=== PATIENT | female | born 1945 | race Caucasian/White ===

== ENCOUNTER → 2019-02-15 17:55 | Outpatient (CLI) | payer MEDICARE, BC, SELFPAY | PROVIDERS: Visit Provider Physician Assistant | DX: L97.911 Non-pressure chronic ulcer of unspecified part of right lower leg limited to breakdown of skin (principal) | CPT/HCPCS: 87070; 87205 ==

== ENCOUNTER → 2019-02-21 13:34 | Outpatient (CLI) | payer MEDICARE, BC, SELFPAY | PROVIDERS: Visit Provider Family Medicine | DX: I87.331 Chronic venous hypertension (idiopathic) with ulcer and inflammation of right lower extremity (principal); L97.811 Non-pressure chronic ulcer of other part of right lower leg limited to breakdown of skin; I89.0 Lymphedema, not elsewhere classified; L03.115 Cellulitis of right lower limb | CPT/HCPCS: 87070; 87075; 87077; 87186; 87205; 97597; 97598; 99203; 99214 ==

== ENCOUNTER 2019-02-23 04:50 | Emergency (ER) | payer MEDICARE, BC, SELFPAY ==
[2019-02-23 05:00] VITALS: BP 145/68; PULSE 87; RESP 20; TEMP 36.9; O2SAT 99
--- NOTE | 2019-02-23 05:18 | ED_ITS ---
HPI - Extremity Problem General Chief complaint: Extremity Problem,Nontraumatic Stated complaint: PAIN IN RIGHT LEG Time Seen by Provider: 02/23/19 05:10 Source: patient Mode of arrival: ambulatory Limitations: no limitations History of Present Illness HPI Narrative: The patient reports this morning due to ongoing right leg pain. She was sitting in the hospital 2 weeks ago with her very ill , when she developed discomfort in the right leg. She has lymphedema, she has a history of lower extremity vascular surgeries. She formed an ulcer on right lower extremity. She [facility]. She was initially seen at a walk-in clinic and started on Keflex.There was erythema spreading, at the [facility] her antibiotic was changed to Augmentin. The 1st culture showed no specific growth. A 2nd culture showed Gram-positive cocci, 2 separate strains. No definitive culture as yet been read. Related Data Home Medications Medication Instructions Recorded Confirmed clonidine HCl PO 02/15/19 02/15/19 ruqigedyqegy-Hh-qfvw-minerals PO 02/15/19 02/15/19 tamoxifen PO 02/15/19 02/15/19 Previous Rx's Medication Instructions Recorded tramadol 50 mg PO Q6H PRN #14 tab 02/23/19 Allergies Allergy/AdvReac Type Severity Reaction Status Date / Time Opioids - Morphine Analogues Allergy Severe makes very Verified 02/15/19 17:37 sick for several days. Review of Systems Review of Systems ROS Unobtainable: All systems reviewed & are unremarkable except as noted in HPI and below Constitutional Denies chills, Denies fever(s), Denies lethargy and Denies weakness Cardiovascular Denies chest pain, Denies irregular heart rhythm, Denies lightheadedness, Denies palpitations, Denies dyspnea, Denies dyspnea on exertion and Denies orthopnea Respiratory Denies cough, Denies dyspnea, Denies dyspnea on exertion and Denies wheezing Gastrointestinal Gastrointestinal: Denies abdominal pain, Denies change in bowel habits, Denies diarrhea, Denies nausea and Denies vomiting Musculoskeletal Denies back pain, Denies muscle weakness, Denies numbness and Denies tingling Comments: Right leg ulcer, right leg pain. Integumentary/Breasts Denies rash Comments: Right leg ulcer Neurologic Denies numbness, Denies tingling and Denies weakness Endocrine Denies palpitations Allergic/Immunologic Denies wheezing ON LICENSE OF [facility] Medical History (Updated 02/23/19 @ 05:25 by Bruce Soto MD) Breast cancer (Acute) Hypertension (Acute) Lymphedema (Acute) Ulcer of right lower extremity, limited to breakdown of skin (Acute) Social History Smoking Status: Never smoker Social History Smoking Status: Never smoker Exam Initial Vital Signs Initial Vital Signs: Vital Signs Temperature 98.4 F 02/23/19 05:00 Pulse Rate 87 02/23/19 05:00 Respiratory Rate 20 02/23/19 05:00 Blood Pressure 145/68 H 02/23/19 05:00 Pulse Oximetry 99 02/23/19 05:00 Const General: cooperative and well developed Nutritional Appearance: well nourished Orientation: alert, awake, oriented x3 and not confused Chest Chest: normal inspection of the chest Resp Effort & Inspection: normal respiratory effort and able to speak in complete sentences Auscultation: clear to auscultation bilaterally, no rales, no rhonchi and no wheezes Cardio Rate: regular rate Rhythm: regular rhythm Heart Sounds: S1 normal, S2 normal, no click, no gallops, no murmurs and no rubs Pulses: normal peripheral pulses GI Inspection: non-distended Palpation: soft, no hepatosplenomegaly, No guarding, No pulsatile mass and No tender Auscultation: normal bowel sounds Skin Other: Open superficial ulcer on the right anterior and lateral distal leg. Erythema extending from the top of foot, to just below the knee. The boundary erythema has increased since seen in the [facility], they erythema line was marked at that time. There is. The discharge from the wound site. There is no evidence of abscess. Neuro General: alert, oriented x3, gait normal and no focal motor deficits Speech: speech normal Extrem General: full ROM, no clubbing, cyanosis or edema, no pedal edema and no calf tenderness Other: Significant for a ulcer to the right lower extremity. There is adjacent erythema radiating to the knee, there is theme has spread since last seen clinically. She has had significant tenderness in the right leg. Both lower extremities are neurovascular intact with normal dorsalis pedis pulses. There is no evidence of abscess formation. Course Orders Ordered: ED Orders 02/23/19 05:00 Complete Blood Count AUTO DIFF Stat 02/23/19 06:20 Basic Metabolic Panel Stat Lactate (Lactic Acid) Stat Discontinued Medications Hydromorphone HCl (Dilaudid) 0.5 mg IV NOW ONE Stop: 02/23/19 05:14 Last Admin: 02/23/19 05:45 Dose: 0.5 mg Vancomycin HCl/Dextrose (Vancomycin) 1,500 mg in 300 mls @ 200 mls/hr IV NOW ONE Stop: 02/23/19 06:42 Last Admin: 02/23/19 05:54 Dose: 200 mls/hr Vital Signs - 8 hr 02/23/19 05:00 02/23/19 06:04 Temperature 98.4 F Pulse Rate 87 76 Respiratory Rate 20 16 Blood Pressure 145/68 H Blood Pressure [Right Arm] 128/57 L Pulse Oximetry 99 100 MDM - Extremity (Nontraumatic) Lab Data Result diagrams: 02/23/19 05:00 02/23/19 06:20 Lab Results 02/23/19 02/23/19 02/23/19 Range/Units 05:00 06:20 06:20 WBC 7.0 (4.5-11.0) X10^3/uL RBC 3.59 L (4.0-5.2) X10^6/uL Hgb 11.2 L (12.0-16.0) g/dL Hct 32.6 L (36-46) % MCV 90.9 (80-100) fL MCH 31.3 (26-34) PG MCHC 34.5 (30-36) % RDW 14.4 (11.6-14.8) % Plt Count 137 L (150-400) X10^3/uL Neut % (Auto) 69.7 (50-75) % Lymph % (Auto) 18.2 L (25-40) % [place] % (Auto) 9.2 (3-14) % Eos % (Auto) 2.4 (2-4) % Baso % (Auto) 0.5 (0-2) % Neut # (Auto) 4900 (4142-4043) /uL Lymph # (Auto) 1300 (7686-0003) /uL [place] # (Auto) 600 (0-900) /uL Eos # (Auto) 200 (0-450) /uL Baso # (Auto) 0 (0-100) /uL Sodium 139 (137-145) mmol/L Potassium 3.8 (3.4-5.1) mmol/L Chloride 108 H (98-107) mmol/L Carbon Dioxide 26 (22-32) mmol/L BUN 15 (7-17) mg/dL Creatinine 0.70 (0.52-1.04) mg/dL Estimated GFR > 60.0 (>60) mL/min BUN/Creatinine Ratio 21.4 (6-22) Glucose 105 (80-110) mg/dL Lactate 0.8 (0.7-2.1) mmol/L Calcium 8.9 (8.4-10.2) mg/dL Discharge Plan Departure Patient Disposition: Home Clinical Impression: Cellulitis of leg, right Skin ulcer of right lower leg Qualifiers: Non-pressure ulcer stage: limited to breakdown of skin Qualified Code(s): L97.911 - Non-pressure chronic ulcer of unspecified part of right lower leg limited to breakdown of skin Instructions: DI for Cellulitis -- Adult Activity Restrictions/Additional Instructions: Return later today about 5:00 p.m. for a 2nd dose of IV antibiotics. The next ER doctor will re-evaluate her wound, and determine if you need additional care here after this evening. Continue taking Augmentin as previously prescribed. I will prescribe Tramadol every 6 hours as needed for pain. Also follow up at the [facility] as scheduled. Prescriptions: New tramadol 50 mg tablet 50 mg PO Q6H PRN (Reason: pain) Qty: 14 RF: 0 No Action clonidine HCl PO RF: 0 oprheorqcbum-Ol-weqh-minerals PO RF: 0 tamoxifen PO RF: 0
[2019-02-23 05:40] LABS: Add Manual Diff / Slide Review NO; Basophils Absolute Auto 0 /uL (0-100); Basophils Percent Auto 0.5 % (0-2); Eosinophils Absolute Auto 200 /uL (0-450); Eosinophils Percent Auto 2.4 % (2-4); Hematocrit 32.6 % (36-46); Hemoglobin 11.2 g/dL (12.0-16.0); Lymphocytes Absolute Auto 1300 /uL (1100-4500); Lymphocytes Percent Auto 18.2 % (25-40); Mean Corpuscular HGB Conc 34.5 % (30-36); Mean Corpuscular Hemoglobin 31.3 PG (26-34); Mean Corpuscular Volume 90.9 fL (80-100); Monocytes Absolute Auto 600 /uL (0-900); Monocytes Percent Auto 9.2 % (3-14); Neutrophils Absolute Auto 4900 /uL (1500-7000); Neutrophils Percent Auto 69.7 % (50-75); Platelet Count 137 X10^3/uL (150-400); Red Blood Cell Count 3.59 X10^6/uL (4.0-5.2); Red Cell Distribution Width 14.4 % (11.6-14.8)
[2019-02-23] MEDS: HYDROMORPHONE 1 MG INJ 0.5 MG IV (05:45)
--- NOTE | 2019-02-23 05:50 | PC.NURSE ---
She came eith dressing on right leg,Rosi removed it,she has an area of redness and excoriation on lower right leg,dersssing replaced with her own super absorbent dressing supplied by wound wound care which she is receiving and then tracy brooks.She said the new dressing eased her leg pain a lot.
[2019-02-23] MEDS: VANCOMYCIN 1,500 MG/300 ML FROZ.PIGGY 200 MG IV (05:54)
[2019-02-23 06:04] VITALS: BP 128/57; PULSE 76; RESP 16; O2SAT 100
[2019-02-23 06:36] LABS: BUN Creatinine Ratio 21.4 (6-22); Blood Urea Nitrogen 15 mg/dL (7-17); Calcium 8.9 mg/dL (8.4-10.2); Carbon Dioxide 26 mmol/L (22-32); Chloride 108 mmol/L (98-107); Estimated Glomerular Filt Rate > 60.0 mL/min (>60); Glucose 105 mg/dL (80-110); HEMOLYSIS < 15 (0-50); Lactate (Lactic Acid) 0.8 mmol/L (0.7-2.1); Potassium 3.8 mmol/L (3.4-5.1); Sodium 139 mmol/L (137-145)
[2019-02-23 08:00] VITALS: BP 135/59; PULSE 72; RESP 18; O2SAT 100
[2019-02-23 08:36] VITALS: TEMP 37.2
--- NOTE | 2019-02-23 18:51 | PC.NURSE ---
Pt called stating she feels nauseas and is waiting for her daughter to bring her to ED. Encouraged to call 911 if she has any increased symptoms to return sooner.
== END 2019-02-23 08:37 | disposition home or self-care (01) ==
PROVIDERS: Emergency Provider Emergency Medicine
DX: L03.115 Cellulitis of right lower limb (principal)
CPT/HCPCS: 36415; 36591; 80048; 83605; 85025; 87070; 87077; 87186; 87205; 99283; J1170

== ENCOUNTER 2019-02-23 21:35 | Emergency (ER) | payer MEDICARE, BC, SELFPAY ==
[2019-02-23 21:52] VITALS: BP 132/74; PULSE 74; RESP 18; TEMP 36.6; O2SAT 98; BMI 29.0
[2019-02-23 23:01] VITALS: BP 118/47; PULSE 64; O2SAT 99
[2019-02-23] MEDS: VANCOMYCIN 1,000 MG/200 ML FROZ.PIGGY 200 MG IV (23:16)
[2019-02-24 00:31] VITALS: BP 124/45; PULSE 72; RESP 17; O2SAT 100
--- NOTE | 2019-02-24 01:00 | ED_ITS ---
HPI - Recheck/Abnormal Lab/Rx General Chief Complaint: Recheck/Abnormal Lab/Rx Stated Complaint: RETURNING FOR ANTIBIOTIC IV Time Seen by Provider: 02/23/19 22:35 Source: patient Mode of arrival: ambulatory Limitations: no limitations History of Present Illness HPI narrative: 73F nonsmoker with HTN presents with repeat visit for evaluation of RLE swelling, redness and early cellulitis. Patient was here last night and given Vancomycin and encouraged to come back for evaluation. She is currently under the care of Wound Care and had doxycycline called in today, but was told to come here for evaluation instead. She denies systemic symptoms such as fever, chills, N/V. She feels great and states it looks better as well. MD complaint: wound re-check Initial visit (ago): hour(s) Initial visit for: cellulitis Returns today for: cellulitis follow-up Symptoms since prior visit: no new symptoms Context: planned re-check Associated symptoms: none Treatments prior to arrival: given antibiotics on Related Data Home Medications Medication Instructions Recorded Confirmed clonidine HCl PO 02/15/19 02/15/19 moefqsehjluf-En-ujoi-minerals PO 02/15/19 02/15/19 tamoxifen PO 02/15/19 02/15/19 Previous Rx's Medication Instructions Recorded tramadol 50 mg PO Q6H PRN #14 tab 02/23/19 Allergies Allergy/AdvReac Type Severity Reaction Status Date / Time Opioids - Morphine Analogues Allergy Severe makes very Verified 02/15/19 17:37 sick for several days. Review of Systems Constitutional Denies chills, Denies fever(s), Denies lethargy and Denies weakness Eyes Denies change in vision, Denies eye discharge, Denies irritation and Denies loss of vision ENT Ears, Nose, Mouth, and Throat: Denies change in voice, Denies neck pain and Denies sore throat Cardiovascular Denies chest pain, Denies irregular heart rhythm, Denies lightheadedness, Denies palpitations, Denies dyspnea, Denies dyspnea on exertion and Denies orthopnea Respiratory Denies cough, Denies dyspnea, Denies dyspnea on exertion and Denies wheezing Gastrointestinal Gastrointestinal: Denies abdominal pain, Denies change in bowel habits, Denies diarrhea, Denies nausea and Denies vomiting Genitourinary Denies hematuria, Denies flank pain, Denies urinary incontinence and Denies urinary urgency Musculoskeletal Denies neck pain Integumentary/Breasts Denies pruritus, Reports erythema, Denies rash and Denies wounds Neurologic Denies confusion, Denies loss of vision and Denies weakness Psychiatric Denies anxiety, Denies confusion, Denies depression, Denies homicidal ideation and Denies suicidal ideation Endocrine Denies palpitations Hematologic/Lymphatic Denies easy bruising Allergic/Immunologic Denies wheezing PFSH Medical History Breast cancer (Acute) Hypertension (Acute) Lymphedema (Acute) Ulcer of right lower extremity, limited to breakdown of skin (Acute) Social History Smoking Status: Never smoker Social History Smoking Status: Never smoker Exam Narrative Exam Narrative: GEN: AOx3 and in mild distress EYES: Pupils are equal, round, and reactive to light and accommodation. Ex traoccular muscles are intact bilaterally. There is no subconjunctival hemorrhage or exudate. CHEST: Lungs are clear to auscultation bilaterally and free of wheezes, rales, or rhonchi. Heart rate is regular rhythm, there are no murmurs, clicks, rubs, or gallops. There is no chest wall tenderness. ABD: Abdomen is soft and nontender. There is no guarding or rebound. Bowel sounds are normal in all 4 quadrants. There is no mass or organomegaly. EXT: Full painless ROM of all extremities with no loss of sensation or strength. SKIN: Right lower extremity addendum this, consistent with chronic lymphedema with erythema of anterior vega, within the markings from wound care Initial Vital Signs Initial Vital Signs: Vital Signs Temperature 98 F 02/23/19 21:52 Pulse Rate 74 02/23/19 21:52 Respiratory Rate 18 02/23/19 21:52 Blood Pressure 132/74 02/23/19 21:52 Pulse Oximetry 98 02/23/19 21:52 Course Orders Ordered: Discontinued Medications Vancomycin HCl/Dextrose (Vancomycin) 1,000 mg in 200 mls @ 200 mls/hr IV NOW ONE Stop: 02/24/19 00:07 Last Infusion: 02/24/19 00:07 Dose: 0 mls/hr Admin: 02/23/19 23:16 Dose: 200 mls/hr Reevaluation(s) Reevaluation #1: cultures consulted. Multi organism susceptible to doxy/vanco Vital Signs - 8 hr 02/23/19 21:52 02/23/19 23:01 02/24/19 00:31 Temperature 98 F Pulse Rate 74 64 72 Respiratory Rate 18 17 Blood Pressure 132/74 Blood Pressure [Left Arm] 118/47 L 124/45 L Pulse Oximetry 98 99 100 Discharge Plan Departure Patient Disposition: Home Clinical Impression: Cellulitis of leg, right Interventions: ED Discharge Assessment Last Done: 02/24/19 00:51 Instructions: DI for Cellulitis -- Adult Activity Restrictions/Additional Instructions: *You have been diagnosed with [right lower extremity cellulitis] *What to do: *Take medications as directed: Begin taking doxycycline as requested by wound care *Follow up with your primary care provider in 2-3 days, call for an appointment. Let them know you were seen in the Emergency Department and that we ask that you be seen in follow up *Return to ER if you should have any new, worsening or concerning symptoms Prescriptions: No Action clonidine HCl PO RF: 0 dvalngzdtrvd-Ki-gvhs-minerals PO RF: 0 tamoxifen PO RF: 0 tramadol 50 mg tablet 50 mg PO Q6H PRN (Reason: pain) Qty: 14 RF: 0
== END 2019-02-24 00:59 | disposition home or self-care (01) ==
PROVIDERS: Emergency Provider Emergency Medicine
DX: L03.115 Cellulitis of right lower limb (principal); L97.911 Non-pressure chronic ulcer of unspecified part of right lower leg limited to breakdown of skin
CPT/HCPCS: 36415; 36591; 80048; 83605; 85025; 87070; 87077; 87186; 87205; 96365; 96366; 96375; 99283; 99284; J1170; J3370

== ENCOUNTER → 2019-02-27 14:39 | Outpatient (CLI) | payer MEDICARE, BC, SELFPAY | PROVIDERS: Visit Provider Family Medicine | DX: I87.311 Chronic venous hypertension (idiopathic) with ulcer of right lower extremity (principal); L97.811 Non-pressure chronic ulcer of other part of right lower leg limited to breakdown of skin; L03.115 Cellulitis of right lower limb; B95.7 Other staphylococcus as the cause of diseases classified elsewhere | CPT/HCPCS: 93922; 99214 ==

== ENCOUNTER → 2019-03-02 11:13 | Outpatient (CLI) | payer MEDICARE, BC, SELFPAY | PROVIDERS: Visit Provider Family Medicine | DX: I87.311 Chronic venous hypertension (idiopathic) with ulcer of right lower extremity (principal); L97.811 Non-pressure chronic ulcer of other part of right lower leg limited to breakdown of skin; I89.0 Lymphedema, not elsewhere classified; L03.115 Cellulitis of right lower limb; B95.7 Other staphylococcus as the cause of diseases classified elsewhere | CPT/HCPCS: 99212; 99213 ==

== ENCOUNTER → 2019-03-05 15:04 | Outpatient (CLI) | payer MEDICARE, BC, SELFPAY | PROVIDERS: Visit Provider Family Medicine | DX: I87.2 Venous insufficiency (chronic) (peripheral) (principal); L97.812 Non-pressure chronic ulcer of other part of right lower leg with fat layer exposed; M79.661 Pain in right lower leg | CPT/HCPCS: 29581 ==

== ENCOUNTER → 2019-03-07 13:42 | Outpatient (CLI) | payer MEDICARE, BC, SELFPAY | PROVIDERS: Visit Provider Family Medicine | DX: I87.331 Chronic venous hypertension (idiopathic) with ulcer and inflammation of right lower extremity (principal); L97.811 Non-pressure chronic ulcer of other part of right lower leg limited to breakdown of skin; I89.0 Lymphedema, not elsewhere classified; L03.115 Cellulitis of right lower limb; B95.7 Other staphylococcus as the cause of diseases classified elsewhere; I73.9 Peripheral vascular disease, unspecified | CPT/HCPCS: 99213; 99214 ==

== ENCOUNTER 2019-03-07 14:38 | Inpatient (IN) | payer MEDICARE, BC, SELFPAY ==
[2019-03-07 14:40] VITALS: BP 165/73; PULSE 79; RESP 18; TEMP 37.1; O2SAT 97
--- NOTE | 2019-03-07 15:41 | ED.EXTPRO ---
HPI - Extremity Problem General Chief complaint: Extremity Problem,Nontraumatic Stated complaint: infection of right leg Time Seen by Provider: 03/07/19 15:15 Source: patient and family Mode of arrival: ambulatory Limitations: no limitations History of Present Illness HPI Narrative: Patient comes to the emergency department complaining of redness of her right lower leg that is increasing. Patient has had an open wound on her anterior tibial area for about the last month, and developed a cellulitis in conjunction with this. Patient has been followed in [facility], and the wound was cultured. Patient was started on Augmentin, but the sensitivities found the bacteria to be resistant to this, so patient was switched to doxycycline, which she just finished yesterday. Patient states that the redness has still been progressing. She went and saw her physician at wound care, and was sent over here for further evaluation. Patient's has very recently been ill, and just within the last week. She states that she has not been able to take time to elevate her leg, and that it is more swollen than usual. Patient denies fevers. No lightheadedness. No nausea or vomiting. No chills or shakes. No other complaints at this time. Patient has chronic lymphedema from an open hysterectomy years ago with subsequent adhesions, she has been told. Related Data Home Medications Medication Instructions Recorded Confirmed clonidine HCl PO 02/15/19 02/15/19 gawewkfcymgy-Ho-jpvd-minerals PO 02/15/19 02/15/19 tamoxifen PO 02/15/19 02/15/19 Previous Rx's Medication Instructions Recorded tramadol 50 mg PO Q6H PRN #14 tab 02/23/19 Allergies Allergy/AdvReac Type Severity Reaction Status Date / Time Opioids - Morphine Analogues Allergy Severe makes very Verified 02/15/19 17:37 sick for several days. Review of Systems Constitutional Denies chills, Denies fever(s), Denies lethargy and Denies weakness Eyes Denies change in vision, Denies eye discharge, Denies irritation and Denies loss of vision ENT Ears, Nose, Mouth, and Throat: Denies change in voice, Denies neck pain and Denies sore throat Cardiovascular Denies chest pain, Denies irregular heart rhythm, Denies lightheadedness, Denies palpitations, Denies dyspnea, Denies dyspnea on exertion and Denies orthopnea Respiratory Denies cough, Denies dyspnea, Denies dyspnea on exertion and Denies wheezing Gastrointestinal Gastrointestinal: Denies abdominal pain, Denies change in bowel habits, Denies diarrhea, Denies nausea and Denies vomiting Genitourinary Denies hematuria, Denies flank pain, Denies urinary incontinence and Denies urinary urgency Musculoskeletal Denies neck pain Comments: Patient has marked lower extremity edema on the right, extending to her thigh. Integumentary/Breasts Denies pruritus, Reports erythema, Denies rash and Reports wounds Comments: Patient has an approximately 8 x 10 cm partial thickness wound to her anterior tibial area which appears to have good vascularization and healthy granulation tissue. Patient's entire lower leg is erythematous to varying degrees, with the greatest intensity of erythema around the wound itself. Erythema extends to the patient's knee area. No drainage is noted from the wound. No induration, fluctuance, or crepitus. Neurologic Denies confusion, Denies loss of vision and Denies weakness Psychiatric Denies anxiety, Denies confusion, Denies depression, Denies homicidal ideation and Denies suicidal ideation Endocrine Denies palpitations Hematologic/Lymphatic Denies easy bruising Allergic/Immunologic Denies wheezing [facility] Medical History Breast cancer (Acute) Hypertension (Acute) Lymphedema (Acute) Ulcer of right lower extremity, limited to breakdown of skin (Acute) Social History household members: none Smoking Status: Never smoker alcohol intake: never Social History household members: none Smoking Status: Never smoker alcohol intake: never Exam Initial Vital Signs Initial Vital Signs: Vital Signs Temperature 98.8 F 03/07/19 14:40 Pulse Rate 79 03/07/19 14:40 Respiratory Rate 18 03/07/19 14:40 Blood Pressure 165/73 H 03/07/19 14:40 Pulse Oximetry 97 03/07/19 14:40 Const General: cooperative and well developed Nutritional Appearance: well nourished Orientation: alert, awake, oriented x3 and not confused [facility] Head: normocephalic and atraumatic Ears: external ears normal Nose: external nose normal and No nasal discharge Face and sinus: face symmetric and No dry mucous membranes Mouth: oral mucosae normal and moist mucous membranes Teeth and gingiva: dentition normal Eyes General: appearance normal, both eyes and all related structures Eyelids: eyelids normal Conjunctivae: conjunctivae normal Sclera: sclerae normal Pupils: PERRL EOM: EOM intact bilaterally Neck Neck: normal visual inspection, trachea midline, No lymphadenopathy, No midline deformity and No JVD Lymphatic: No lymphedema Chest Chest: normal inspection of the chest Resp Effort & Inspection: normal respiratory effort, able to speak in complete sentences, no respiratory distress and no use of accessory muscles Auscultation: clear to auscultation bilaterally, no rales, no rhonchi and no wheezes Cardio Rate: regular rate Rhythm: regular rhythm Heart Sounds: no click, no gallops, no murmurs and no rubs Pulses: normal peripheral pulses GI Inspection: non-distended Palpation: soft, no hepatosplenomegaly, No guarding, No pulsatile mass and No tender Auscultation: normal bowel sounds Back/Spine/Pelvis Back: No CVA tenderness Cervical Spine: cervical ROM normal and No pain with cervical ROM Thoracic/Lumbar Spine: thoracic and lumbar spine normal to inspection Skin General: no rashes or lesions noted, No jaundice and No petechiae Other: Patient is an 8 x 10 cm partial-thickness wound which appears chronic. Good granulation tissue is noted in the floor of the wound. Erythema is noted to be most intense around the wound, but spreads up as far as the patient's knee and down to her ankle. No induration, fluctuance, or drainage is noted. Neuro General: alert, oriented x3, gait normal and no focal motor deficits Speech: speech normal Extrem General: full ROM and no calf tenderness Right lower extremity: edema (Marked) Details: non-pitting Psych Appearance: well kempt Mental Status: mental status grossly normal Attitude: cooperative Thought Content: normal and suicidality Judgment: judgment good Course Course Narrative: Patient was worked up with labs, and given a dose of vancomycin in the emergency department. The patient admittedly had not been doing a very good job of keeping her leg elevated, and I suspected that is why even antibiotics to which the bacteria were susceptible were not effective in eradicating the cellulitis. I have explained to the patient and her daughter that it is very important that she keep the leg elevated. We will admit her overnight in the hospital for serial doses of IV antibiotics, but I have advised the patient that she will be discharged home after this and she will need to make it a prior day to keep her leg elevated, to allow better circulation and to destress the tissues which are infected. Patient expresses understanding. I have spoken with Dr. Wilson, who agrees to admit the patient to her service. Orders Ordered: ED Orders 03/07/19 15:38 Blood Culture Stat 03/07/19 17:46 XR chest for PICC 1V Urgent 03/07/19 18:41 Complete Blood Count AUTO DIFF Stat Comprehensive Metabolic Panel Stat Discontinued Medications Vancomycin HCl (Vancomycin) 200 mls @ 200 mls/hr IV NOW ONE Stop: 03/07/19 16:39 Last Admin: 03/07/19 19:41 Dose: 200 mls/hr Vital Signs - 8 hr 03/07/19 14:40 03/07/19 19:36 Temperature 98.8 F 97.1 F L Pulse Rate 79 69 Respiratory Rate 18 16 Blood Pressure 165/73 H 146/79 H Pulse Oximetry 97 MDM - Extremity (Nontraumatic) Medical Records Attestation: I reviewed the patient's medical records. Lab Data Attestation: I reviewed the patient's lab results. Result diagrams: 03/07/19 18:41 03/07/19 18:41 Lab Results 03/07/19 03/07/19 Range/Units 18:41 18:41 WBC 5.7 (4.5-11.0) X10^3/uL RBC 3.38 L (4.0-5.2) X10^6/uL Hgb 10.6 L (12.0-16.0) g/dL Hct 30.2 L (36-46) % MCV 89.6 (80-100) fL MCH 31.5 (26-34) PG MCHC 35.2 (30-36) % RDW 14.6 (11.6-14.8) % Plt Count 115 L (150-400) X10^3/uL Neut % (Auto) 58.8 (50-75) % Lymph % (Auto) 30.9 (25-40) % [place] % (Auto) 7.9 (3-14) % Eos % (Auto) 1.2 L (2-4) % Baso % (Auto) 1.2 (0-2) % Neut # (Auto) 3300 (3572-0809) /uL Lymph # (Auto) 1700 (8105-6885) /uL [place] # (Auto) 400 (0-900) /uL Eos # (Auto) 100 (0-450) /uL Baso # (Auto) 100 (0-100) /uL Sodium 136 L (137-145) mmol/L Potassium 3.7 (3.4-5.1) mmol/L Chloride 104 (98-107) mmol/L Carbon Dioxide 27 (22-32) mmol/L BUN 13 (7-17) mg/dL Creatinine 0.60 (0.52-1.04) mg/dL Estimated GFR > 60.0 (>60) mL/min BUN/Creatinine Ratio 21.7 (6-22) Glucose 87 (80-110) mg/dL Calcium 8.9 (8.4-10.2) mg/dL Total Bilirubin 0.9 (0.2-1.3) mg/dL AST 18 (14-36) IU/L ALT 13 (9-52) IU/L Alkaline Phosphatase 48 (38-126) U/L Total Protein 5.9 L (6.3-8.2) g/dL Albumin 3.2 L (3.5-5.0) g/dL Globulin 2.7 (1.7-4.1) g/dL Albumin/Globulin Ratio 1.2 (1.0-2.8) Discharge Plan Departure Patient Disposition: Admitted As Inpatient Clinical Impression: Cellulitis of right lower extremity Discharge Date/Time: 03/07/19 18:50 Interventions: ED Discharge Assessment Last Done: 03/07/19 17:40 Admit Date/Time: 03/07/19 17:27 Admit Provider: Marii Wilson
--- NOTE | 2019-03-07 15:46 | PC.NURSE ---
Pt hard stick and only able to use L arm. DI nurse paged to bedside for IV
[2019-03-07 17:34] VITALS: BMI 29.1
--- NOTE | 2019-03-07 17:39 | CM.MNRNOTE ---
DI RN at bedside placing PICC line for lack of access. Report called to MATT Osorio on inpatient floors.
--- NOTE | 2019-03-07 17:46 | DI.RAD.S_ITS ---
PROCEDURE: XR CHEST FOR PICC 1V INDICATIONS: picc line placement COMPARISON: None. FINDINGS: PICC was placed by the intravenous therapy team from the left side. Fluoroscopic spot film demonstrates tip of PICC in the distal SVC. IMPRESSION: Tip of PICC lies within the distal SVC. Dictated by: Osmani Long M.D. on 03/07/2019 at 18:08 Approved by: Osmani Long M.D. on 03/07/2019 at 18:09
[2019-03-07 18:50] LABS: Add Manual Diff / Slide Review NO; Basophils Absolute Auto 100 /uL (0-100); Basophils Percent Auto 1.2 % (0-2); Eosinophils Absolute Auto 100 /uL (0-450); Eosinophils Percent Auto 1.2 % (2-4); Hematocrit 30.2 % (36-46); Hemoglobin 10.6 g/dL (12.0-16.0); Lymphocytes Absolute Auto 1700 /uL (1100-4500); Lymphocytes Percent Auto 30.9 % (25-40); Mean Corpuscular HGB Conc 35.2 % (30-36); Mean Corpuscular Hemoglobin 31.5 PG (26-34); Mean Corpuscular Volume 89.6 fL (80-100); Monocytes Absolute Auto 400 /uL (0-900); Monocytes Percent Auto 7.9 % (3-14); Neutrophils Absolute Auto 3300 /uL (1500-7000); Neutrophils Percent Auto 58.8 % (50-75); Platelet Count 115 X10^3/uL (150-400); Red Blood Cell Count 3.38 X10^6/uL (4.0-5.2); Red Cell Distribution Width 14.6 % (11.6-14.8); White Blood Cell Count 5.7 X10^3/uL (4.5-11.0)
[2019-03-07 19:05] LABS: Alanine Aminotransferase 13 IU/L (9-52); Albumin 3.2 g/dL (3.5-5.0); Albumin Globulin Ratio 1.2 (1.0-2.8); Alkaline Phosphatase 48 U/L (38-126); Aspartate Aminotransferase 18 IU/L (14-36); BUN Creatinine Ratio 21.7 (6-22); Bilirubin Total 0.9 mg/dL (0.2-1.3); Blood Urea Nitrogen 13 mg/dL (7-17); Calcium 8.9 mg/dL (8.4-10.2); Carbon Dioxide 27 mmol/L (22-32); Chloride 104 mmol/L (98-107); Estimated Glomerular Filt Rate > 60.0 mL/min (>60); Globulin 2.7 g/dL (1.7-4.1); Glucose 87 mg/dL (80-110); HEMOLYSIS < 15 (0-50); Potassium 3.7 mmol/L (3.4-5.1); Sodium 136 mmol/L (137-145); Total Protein 5.9 g/dL (6.3-8.2)
[2019-03-07 19:36] VITALS: BP 146/79; PULSE 69; RESP 16; TEMP 36.2
[2019-03-07] MEDS: VANCOMYCIN 200 ML 200 MG IV (19:41)
--- NOTE | 2019-03-07 21:59 | P.HP_ITS ---
History of Present Illness Date Patient Seen: 03/07/19 Time Patient Seen: 21:57 Chief complaint: infection of right leg Narrative: 73-year-old female presents with worsening cellulitis in the right lower extremity that has failed multiple outpatient treatments. She initially was seen around the 15 of February and was given some Keflex for cellulitis associated with some venous ulcers she was seen subsequently a week later and placed on Augmentin cultures were taken and the cultures eventually grew out both and Enterococcus and a Staph species. She was then after she finished a course of Augmentin was placed on doxycycline and that finished yesterday. Despite all that treatment she has had worsening of the ulceration worsening of the cellulitis and swelling and redness. The redness now is extensive from her foot all the way up to the knee and the swelling goes beyond the knee up into the thigh. She is followed by wound clinic they saw her today she they thought that she would benefit from IV antibiotic therapy also Patient History Medical History Breast cancer (Acute) Hypertension (Acute) Lymphedema (Acute) Ulcer of right lower extremity, limited to breakdown of skin (Acute) Social History household members: none Smoking Status: Never smoker alcohol intake: never Family & Social History Social History: household members none Prior Living Arrangements House less than a week ago Safety & Behavioral: Feels Safe in Current Yes Environment Been Physically Hurt or No Threatened By a Person Suicidal Ideation Description None Suicide Plan Description No Plan Tobacco & Substance use: Smoking Status Never smoker alcohol intake never Substance Use Type does not use Meds Home Medications Medication Instructions Recorded Confirmed Type clonidine HCl PO 02/15/19 02/15/19 History vjopztvrpyeh-Id-vumb-minerals PO 02/15/19 02/15/19 History tamoxifen PO 02/15/19 02/15/19 History tramadol 50 mg PO Q6H PRN #14 tab 02/23/19 03/07/19 Rx Allergies Allergy/AdvReac Type Severity Reaction Status Date / Time Opioids - Morphine Analogues Allergy Severe makes very Verified 02/15/19 17:37 sick for several days. Review of Systems Constitutional Constitutional: Denies fever(s) Eyes Eyes: Reports system reviewed; no additional complaints, except as documented ENT Ears, Nose, Mouth, and Throat: Yes system reviewed; no additional complaints, except as documented Cardiovascular Cardiovascular: Reports system reviewed; no additional complaints, except as documented Respiratory Respiratory: Reports system reviewed and no additional complaints, except as documented Gastrointestinal Gastrointestinal: Reports system reviewed and no additional complaints, except as documented Genitourinary Genitourinary: Reports system reviewed and no additional complaints, except as documented Musculoskeletal Musculoskeletal: Reports system reviewed; no additional complaints, except as documented Integumentary/Breasts Skin/Breast: Reports system reviewed and no additional complaints, except as documented Neurologic Neurologic: Reports system reviewed and no additional complaints, except as documented Psychiatric Psychiatric: Reports system reviewed and no additional complaints, except as documented Endocrine Endocrine: Reports system reviewed and no additional complaints, except as documented Hematologic/Lymphatic Hematologic/Lymphatic: Reports system reviewed and no additional complaints, except as documented Allergic/Immunologic Allergic/Immunologic: Reports system reviewed and no additional complaints, except as documented Exam Vital Signs (past 8 hours): - 03/07/19 14:40 03/07/19 19:36 Temperature 98.8 F 97.1 F L Pulse Rate 79 69 Respiratory Rate 18 16 Blood Pressure 165/73 H 146/79 H Pulse Oximetry 97 Oxygen Delivery Method Room Air Narrative Exam Narrative: Pleasant elderly female no acute distress she is accompanied by her daughter she is resting comfortably and is able answer questions without difficulty HEENT exam unremarkable Oropharynx clear Neck is supple JVD is not present Heart regular rhythm Lungs Clear to auscultation Abdomen soft nontender Extremities right lower extremity she has erythema from the foot up to the just below the knee swelling extends up past the knee into the thigh warmth along with the the erythema is noted the of ulceration on the vega is dressed Neuro exam awake alert oriented x3 Objective Labs Result Diagrams: 03/07/19 18:41 03/07/19 18:41 Labs: Laboratory Results - last 24 hr 03/07/19 03/07/19 18:41 18:41 WBC 5.7 RBC 3.38 L Hgb 10.6 L Hct 30.2 L MCV 89.6 MCH 31.5 MCHC 35.2 RDW 14.6 Plt Count 115 L Neut % (Auto) 58.8 Lymph % (Auto) 30.9 [place] % (Auto) 7.9 Eos % (Auto) 1.2 L Baso % (Auto) 1.2 Neut # (Auto) 3300 Lymph # (Auto) 1700 [place] # (Auto) 400 Eos # (Auto) 100 Baso # (Auto) 100 Sodium 136 L Potassium 3.7 Chloride 104 Carbon Dioxide 27 BUN 13 Creatinine 0.60 Estimated GFR > 60.0 BUN/Creatinine Ratio 21.7 Glucose 87 Calcium 8.9 Total Bilirubin 0.9 AST 18 ALT 13 Alkaline Phosphatase 48 Total Protein 5.9 L Albumin 3.2 L Globulin 2.7 Albumin/Globulin Ratio 1.2 Assessment & Plan Assessment & Plan narrative: One. Cellulitis right lower extremity very extensi ve and progressive despite 2 weeks of oral antibiotic therapy for appropriate coverage she was getting coverage for the enterococcus with the Augmentin and then the staff covered by the doxycycline neither of those have helped. She will be admitted to the hospital as an inpatient placed on vancomycin which should cover both organisms plan to re-culture as she might have a another organism that were not covering yet. Consider empirically adding gram-negative coverage patient has an associated venous ulcer will continue dressing changes as per wound care 2. Hypertension on clonidine plan to continue 3. History of breast cancer on tamoxifen plan to continue 4. Anemia this appears to be chronic 5. DVT prophylaxis plan to place her on Lovenox 6. Code status patient is full code Time Spent With Patient Time with patient: Greater than 35 minutes Quality VTE Deep Vein Thrombosis/Pulmonary Embolism Present on Admission: No
[2019-03-07] MEDS: TRAMADOL 50 MG TABLET PO (22:58)
[2019-03-07 23:45] VITALS: BP 153/74; PULSE 67; RESP 16; TEMP 36.6; O2SAT 98
[2019-03-08] VITALS (8 sets, daily range): BP systolic 106–124; BP diastolic 53–65; PULSE 64–70; RESP 16–18; TEMP 36.6–37; O2SAT 94–100
--- NOTE | 2019-03-08 01:19 | PC.NURSE ---
Addendum entered by Joelle Watson R.N. 03/08/19 05:57: Slept at intervals. Denies any pain this morning. Ambulated to bathroom and upon getting to bathroom door started complaining of nausea; medicated with Zofran. Original Note: 0030 Patient is alert and oriented. Breath sounds CTA with RA sat of 98%. HRR but with elevated BP of 153/74. Denies nausea. BT present and abdomen is soft. Reports she dribbles and can be incontinent but is also up to bathroom with SBA to urinate; daughter is assisting her tonight. Is able to turn self in bed. Complains of discomfort at PICC insertion site so wrapped with warm blanket and reports much improved now. Had Tramadol for 7/10 right LE pain just prior to shift change and now reports pain more tolerable at 4/10. Has chronic lymphedema in bilateral LE right > left; wearing compression stocking on left leg. Right leg has erythema which is within previously drawn markings. Open area to anterior right LE with yellow drainage; culture taken and sent to lab; pictures taken with patient's permission. Wound is approx 3X6. Fall risk score is high; reports 1 fall in past 3 months; bed alarm is activated and patient/daughter verbalize understanding.
[2019-03-08] MEDS: SODIUM CHLORIDE 0.9% FLUSH 10 ML IV ×3 (05:48→20:14)
[2019-03-08] MEDS: ONDANSETRON 4 MG/2 ML INJ IV (05:48)
[2019-03-08] MEDS: VANCOMYCIN 750 MG/150 ML FROZ.PIGGY 150 MG IV ×2 (08:42→20:20)
[2019-03-08] MEDS: TAMOXIFEN 10 MG TABLET 20 MG PO (09:50)
[2019-03-08] MEDS: ENOXAPARIN 40 MG/0.4 ML SYRINGE SUBCUT (09:50)
--- NOTE | 2019-03-08 10:44 | PC.NURSE ---
Pt is A&Ox3, she denies pain. [place]. [place] with skin ulcer, possibly Venous Ulcer. Wound is open with yellow colored slough and is draining. Excudate pad applied to area with some netting to keep this in place. Pt is up with 1PA and walker to use the bathroom. She is pleasant and cooperative with all care. Pt and daughter are visiting at this time. Pts about 3 days ago. She is taking it well, but states that she does miss him.
[2019-03-08] MEDS: TRAMADOL 50 MG TABLET PO (12:57)
--- NOTE | 2019-03-08 15:32 | P.PN_ITS ---
Subjective Date Patient Seen: 03/08/19 Interval history: Chart reviewed patient seen and examined. She has no specific complaints. It specifically no diarrhea. She has no nausea. She is tolerating the vancomycin without difficulty the erythema on the right leg seems to be residing. The open wound has minimal drainage. Exam Vital Signs (past 8 hours): - 03/08/19 08:00 03/08/19 10:37 03/08/19 12:00 Temperature 97.8 F 98.1 F Pulse Rate 70 68 Respiratory Rate 16 18 Blood Pressure 106/53 L 107/60 Pulse Oximetry 100 94 98 Oxygen Delivery Method Room Air Oxygen Flow Rate 0 Narrative Exam Narrative: Pleasant female resting comfortably Lungs: Clear to auscultation Cardiac exam: Regular rate rhythm normal S1-S2 with a 2/6 systolic ejection Abdomen: Soft nontender nondistended without hepatosplenomegaly Extremities: Right leg with erythema appears to be decreased decreased with decreased warm there is a large open ulcer with minimal drainage Objective Labs Result Diagrams: 03/07/19 18:41 03/07/19 18:41 Labs: Laboratory Results - last 24 hr 03/07/19 03/07/19 18:41 18:41 WBC 5.7 RBC 3.38 L Hgb 10.6 L Hct 30.2 L MCV 89.6 MCH 31.5 MCHC 35.2 RDW 14.6 Plt Count 115 L Neut % (Auto) 58.8 Lymph % (Auto) 30.9 [place] % (Auto) 7.9 Eos % (Auto) 1.2 L Baso % (Auto) 1.2 Neut # (Auto) 3300 Lymph # (Auto) 1700 [place] # (Auto) 400 Eos # (Auto) 100 Baso # (Auto) 100 Sodium 136 L Potassium 3.7 Chloride 104 Carbon Dioxide 27 BUN 13 Creatinine 0.60 Estimated GFR > 60.0 BUN/Creatinine Ratio 21.7 Glucose 87 Calcium 8.9 Total Bilirubin 0.9 AST 18 ALT 13 Alkaline Phosphatase 48 Total Protein 5.9 L Albumin 3.2 L Globulin 2.7 Albumin/Globulin Ratio 1.2 Assessment & Plan (1) Cellulitis of leg, right: Problem details: Cellulitis of the right lower leg having failed outpatient therapy. This seems to be improving on IV vancomycin. Will continue current treatment. Will ask the wound care center to evaluate her here in the hospital. Current visit: Yes Status: Acute (2) Skin ulcer of right lower leg: Problem details: Right lower extremity ulcer likely is V likely venous insufficiency continue treatment as above Qualifiers: Non-pressure ulcer stage: limited to breakdown of skin Qualified Code(s): L97.911 - Non-pressure chronic ulcer of unspecified part of right lower leg limited to breakdown of skin Current visit: No Status: Acute (3) Anemia: Problem details: Anemia, chronic Current visit: Yes Status: Acute (4) Hypertension: Problem details: Hypertension, chronic Current visit: Yes Status: Acute Assessment & Plan narrative: Anticipate 2-3 days of antibiotics and then presumably discharged home on oral medications. Quality VTE Deep Vein Thrombosis/Pulmonary Embolism Present on Admission: No
--- NOTE | 2019-03-08 15:43 | CM.DANOTE ---
Discharge Planning/Care Management DCP: case received, EMR reviewed and met now with pt. Introduced self and role. Pt is a 73 year old female who admitted to care of hospitalist team last night. She was sent over by the [facility] after failing treatment in the outpt setting. Payer: Medicare and [facility]. Pt is currently on Iv antibiotics and with plan for dressing changes to leg wound directed by wound care center. Pt states she is newly , her just passed March 03 and she and her daughter Mara (who joined us part way through the conversation) were making cremation arrangements when she started to feel unwell). 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 She further notes that she is at ease with her 's passing, we are both going to have our ashes put to the sea when the time comes. Discussed her SNF benefit in case of need for lenghty IV antibiotics and wound care and pt and her daughter are open to whatever is need. Assured her that the DCP team would be following closely....She and her daughter expressed thankfulness for the visit. Did call the project manager entertainment and media: land conservation specialist: Vishal Campos responded. Updated him re above and he will check in with pt during his rounds to offer any prn support she might wish. CM Discharge Assessment Start: 03/08/19 15:42 Freq: Status: Active Protocol: Document 03/08/19 15:42 ITV (Rec: 03/08/19 15:43 ITV [id number]) Discharge Planning Assessment Advance Directives? No History Provided By Patient Family Member Medical Record Prior Living Arrangements House Household Members none Comment March 03, 2019 Is patient alert and oriented? Yes Whiteboard Updated in Patient Room with Yes name and ext. # of Program Scheduler
[2019-03-08] MEDS: cloNIDine 0.1 MG TABLET PO (20:14)
--- NOTE | 2019-03-08 22:02 | PC.NURSE ---
wound care 2129 exu-dry dressing from wound care clinic fell off RLE when pt ambulating to BR. RLE elevated. wound has yellow drainage. cleansed with saline. photos taken for documentation. new exu-dry pad placed with tube gauze to keep in place.
[2019-03-09] VITALS (8 sets, daily range): BP systolic 91–113; BP diastolic 40–61; PULSE 54–66; RESP 16–18; TEMP 36.5–36.9; O2SAT 98–100
[2019-03-09] MEDS: ENOXAPARIN 40 MG/0.4 ML SYRINGE SUBCUT (08:02)
[2019-03-09] MEDS: TAMOXIFEN 10 MG TABLET 20 MG PO (08:02)
[2019-03-09] MEDS: SODIUM CHLORIDE 0.9% FLUSH 10 ML IV ×2 (08:02→21:07)
[2019-03-09 08:31] LABS: Vancomycin Trough 8.8 ug/mL (10-20)
[2019-03-09] MEDS: VANCOMYCIN TROUGH 1 REQUEST MISC (08:40)
--- NOTE | 2019-03-09 08:56 | PM.PN.1 ---
Subjective Date Patient Seen: 03/09/19 Time Patient Seen: 08:57 Interval history: She is seen today to follow up her Right leg Enterococcus Cellulitis and skin ulcer. The wound culture is growing pansensitive Enterococcus. She says she was doing brief changes and cleaning her after bowel movements at home until he last week. He was apparently ill for a long time. The last Hgb was 10.6 and WBC 5.7 on 03/07. She is afebrile and VSS with a BP of 91/40. Exam Vital Signs (past 8 hours): - 03/09/19 01:28 03/09/19 06:00 Temperature 98.3 F 98.2 F Pulse Rate 66 61 Respiratory Rate 18 18 Blood Pressure 104/55 L 91/40 L Pulse Oximetry 99 100 Oxygen Delivery Method Room Air Oxygen Flow Rate 0 Narrative Exam Narrative: Alert and oriented X 3 and in NAD Heart: RRR without murmur Lungs: CTAB Ext: No ankle edema. The redness of the right vega/ankle is now a dull red with a large open/superficial ulcer on the anterior vega. Objective Labs Result Diagrams: 03/07/19 18:41 03/07/19 18:41 Labs: Laboratory Results - last 24 hr 03/09/19 07:58 Vancomycin Trough 8.8 L Assessment & Plan Assessment & Plan narrative: (1) Cellulitis of leg, right: Problem details: Enterococcus cellulitis of the right lower leg having failed outpatient therapy. This seems to be improving on IV vancomycin. Will transition to IV ampicillin now that the sensitivities are available. Will ask the wound care center to evaluate her here in the hospital. Current visit: Yes Status: Acute (2) Skin ulcer of right lower leg: Problem details: Right lower extremity ulcer likely is V likely venous insufficiency continue treatment as above. Consider biopsy. Qualifiers: Non-pressure ulcer stage: limited to breakdown of skin Qualified Code(s): L97.911 - Non-pressure chronic ulcer of unspecified part of right lower leg limited to breakdown of skin Current visit: No Status: Acute (3) Anemia: Problem details: Anemia, chronic Current visit: Yes Status: Acute (4) Hypertension: Problem details: Hypertension, chronic Current visit: Yes Status: Acute Assessment & Plan narrative: Anticipate 2-3 days of antibiotics and then presumably discharge to home on oral medications. Quality VTE Deep Vein Thrombosis/Pulmonary Embolism Present on Admission: No
[2019-03-09] MEDS: VANCOMYCIN 200 ML 200 MG IV (09:35)
[2019-03-09] MEDS: AMPICILLIN 500 MG in SODIUM CHLORIDE 0.9% 100 ML 200 ML IV ×3 (11:54→22:28)
[2019-03-09] MEDS: ONDANSETRON 4 MG/2 ML INJ IV (12:00)
[2019-03-09] MEDS: TRAMADOL 50 MG TABLET PO ×2 (12:01→18:19)
--- NOTE | 2019-03-09 13:19 | CM.DPC ---
DCP Cont: Per MD, pt likely here several more days before being stable for discharge home on oral meds. Supportive Dtr bedside and not anticipating d/c planning needs at this time pending pt progress. Plan: SW to follow closely to confirm pt safe for d/c home with oral medications and any further identified discharge planning needs. ELOINA Knight
--- NOTE | 2019-03-09 15:39 | PM.CHAP ---
Chatted with pt for around 45 min. Daughter was there some of that time. cremated today. pt appreciates nursing staff
--- NOTE | 2019-03-09 17:43 | PC.NURSE ---
Wound Care Nurse Consult Note Jennyfer is in bed with her daughter at her side. She states that she is feeling much better. Her right leg is edematous measuring: Right Foot=22. Right Ankle = 26 Right Calf = 45. Left Foot = 22, Left Ankle = 24 Left Calf = 38. She has warmth and erythema. Her leg has been marked with a purple marker for erythema and it is not a red was what has been marked. The wound is partial thickness measuring 9.5 x 9.8 x 0.2. There is a moderate amount of yellow serous drainage. I cleaned the wound with Normal Saline, pat dry and placed xerform gauz, Exudry and kerlix. I would recommend changing the dressing daily and as needed. I would also recommend leg elevation while sitting in bed or in the chair. Dr. Garber and I discussed her plan of care and he feels that when she is discharged she should continue with IV antibiotics. I will follow up with discharge planning on Tuesday.
[2019-03-09] MEDS: SODIUM CHLORIDE 0.9% 250 ML 21 ML IV (22:28)
[2019-03-10] VITALS (10 sets, daily range): BP systolic 98–118; BP diastolic 48–76; PULSE 58–75; RESP 16–18; TEMP 36.1–37.4; O2SAT 97–100
--- NOTE | 2019-03-10 00:34 | PC.NURSE ---
2300- Pt admit for RLE redness & swelling with +enterococcus bacteria found in wound. Sero Sanguineous drainage noted out of wound; dressing changes taking place 1x/day. Moving SBA in room; scheduled IV abx; tolerating diet. L upper arm single lumen PICC locked at this time. VSS on RA
[2019-03-10] MEDS: AMPICILLIN 500 MG in SODIUM CHLORIDE 0.9% 100 ML 200 ML IV (05:03)
[2019-03-10] MEDS: TAMOXIFEN 10 MG TABLET 20 MG PO (08:30)
[2019-03-10] MEDS: cloNIDine 0.1 MG TABLET PO (08:30)
[2019-03-10] MEDS: ENOXAPARIN 40 MG/0.4 ML SYRINGE SUBCUT (08:30)
[2019-03-10] MEDS: SODIUM CHLORIDE 0.9% FLUSH 10 ML IV ×2 (08:30→21:37)
--- NOTE | 2019-03-10 09:13 | PM.PN.1 ---
Subjective Date Patient Seen: 03/10/19 Time Patient Seen: 09:13 Interval history: She is seen today to follow up the left leg ulcer and Enterococcus cellulitis. Yesterday we changed from vancomycin to ampicillin. The cellulitis appears to have regrouped, stabilized or even worsened slightly so it looks like she will need a higher dose. Wound Care saw her yesterday and made recommendations for dressing changes. The patient is somewhat distraught that perhaps those recommendations were not real, thinking that wound care needs to come and change her dressings themselves every day. She is reassured. She is afebrile, vital signs are stable and there are no new labs today. Exam Vital Signs (past 8 hours): - 03/10/19 04:51 03/10/19 08:30 Temperature 97.5 F L 97.6 F Pulse Rate 61 58 L Respiratory Rate 18 16 Blood Pressure 106/56 L 101/55 L Pulse Oximetry 99 99 Oxygen Delivery Method Room Air Oxygen Flow Rate 0 Narrative Exam Narrative: Alert and oriented x3. No apparent distress. Heart is regular rate and rhythm without murmur. Lungs are clear to auscultation bilaterally. Extremities have no ankle edema. The left leg discolored/cellulitic area has re-expanded to the previously marked border with dull red and warm discoloration. It has not exceeded the previous markings. The large and superficial ulcer appears to be unchanged. Objective Labs Result Diagrams: 03/07/19 18:41 03/07/19 18:41 Assessment & Plan Assessment & Plan narrative: (1) Cellulitis of leg, right: Problem details: Enterococcus cellulitis of the right lower leg having failed outpatient therapy. This has stabilized/improving on initially IV vancomycin and now IV ampicillin. It is pansensitive. The dose of ampicillin will be increased to 1 g q.6h IV. Will follow the wound care center recommendations for dressing changes. Anticipate discharge on oral antibiotics in the next 2-3 days. Current visit: Yes Status: Acute (2) Skin ulcer of right lower leg: Problem details: Right lower extremity ulcer likely is venous insufficiency continue treatment as above. Consider biopsy. Qualifiers: Non-pressure ulcer stage: limited to breakdown of skin Qualified Code(s): L97.911 - Non-pressure chronic ulcer of unspecified part of right lower leg limited to breakdown of skin Current visit: No Status: Acute (3) Anemia: Problem details: Anemia, chronic Current visit: Yes Status: Acute (4) Hypertension: Problem details: Hypertension, chronic Current visit: Yes Status: Acute Assessment & Plan narrative: Anticipate 2-3 more days of IV antibiotics and then presumably discharge to home on oral medications. Quality VTE Deep Vein Thrombosis/Pulmonary Embolism Present on Admission: No
[2019-03-10] MEDS: AMPICILLIN 1,000 MG in SODIUM CHLORIDE 0.9% 100 ML 200 ML IV ×3 (10:06→21:36)
[2019-03-10] MEDS: TRAMADOL 50 MG TABLET PO ×2 (13:32→21:34)
[2019-03-10] MEDS: ONDANSETRON 4 MG/2 ML INJ IV ×2 (13:32→21:46)
[2019-03-10] MEDS: BISACODYL 5 MG TABLET 10 MG PO (14:56)
[2019-03-10 16:29] LABS: Add Manual Diff / Slide Review NO; Basophils Absolute Auto 100 /uL (0-100); Basophils Percent Auto 1.2 % (0-2); Eosinophils Absolute Auto 100 /uL (0-450); Eosinophils Percent Auto 2.6 % (2-4); Hematocrit 27.6 % (36-46); Hemoglobin 9.6 g/dL (12.0-16.0); Lymphocytes Absolute Auto 1200 /uL (1100-4500); Lymphocytes Percent Auto 27.9 % (25-40); Mean Corpuscular Hemoglobin 31.6 PG (26-34); Mean Corpuscular Volume 90.3 fL (80-100); Monocytes Absolute Auto 400 /uL (0-900); Monocytes Percent Auto 9.2 % (3-14); Neutrophils Absolute Auto 2500 /uL (1500-7000); Neutrophils Percent Auto 59.1 % (50-75); Platelet Count 101 X10^3/uL (150-400); Red Blood Cell Count 3.05 X10^6/uL (4.0-5.2); White Blood Cell Count 4.3 X10^3/uL (4.5-11.0)
--- NOTE | 2019-03-11 | DI.CT.S_ITS ---
PROCEDURE: CT HEAD/BRAIN WO CON INDICATIONS: POSSIBLE STROKE. Additional history is gathered of altered mental status. TECHNIQUE: Noncontrast 4.5 mm thick angled axial sections acquired from the foramen magnum to the vertex, with coronal and sagittal reformats. For radiation dose reduction, the following was used: automated exposure control, adjustment of mA and/or kV according to patient size. COMPARISON: None. FINDINGS: Image quality: Excellent. CSF spaces: Basal cisterns are patent. No extra-axial fluid collections. The ventricles are symmetric in size and shape. Brain: No intracranial bleeds or masses. There is cerebral volume loss for age, with resultant ventricular and sulcal prominence. There are periventricular and deep white matter chronic small vessel ischemic changes. There is intracranial internal carotid artery atherosclerosis. Skull and face: Calvarium and visualized facial bones appear intact, without suspicious lesions. Sinuses: Visualized sinuses and mastoids are clear. IMPRESSION: Normal intracranial study for age. If there is strong clinical suspicion for an acute stroke, please consider an MRI for further evaluation, as it is more sensitive (assuming that there is no contraindication to MRI). Dictated by: Carlos A Leblanc M.D. on 03/11/2019 at 11:18 Approved by: Carlos A Leblanc M.D. on 03/11/2019 at 11:19
[2019-03-11 04:00] VITALS: BP 136/61; PULSE 67; RESP 18; TEMP 37.4; O2SAT 99
[2019-03-11] MEDS: AMPICILLIN 1,000 MG in SODIUM CHLORIDE 0.9% 100 ML 200 ML IV ×4 (04:01→21:26)
--- NOTE | 2019-03-11 05:51 | PC.NURSE ---
Pt is a steady standby assist, denies dizziness or lightheadedness. Daughter is in room overnight and helping pt to the restroom instead of nurse or aid per pt and daughter's request.
[2019-03-11 07:00] VITALS: O2SAT 96
[2019-03-11 07:52] VITALS: BP 114/58; PULSE 59; RESP 15; TEMP 37.2; O2SAT 100
[2019-03-11] MEDS: ONDANSETRON 4 MG/2 ML INJ IV (08:32)
--- NOTE | 2019-03-11 09:11 | PM.PN.1 ---
Subjective Date Patient Seen: 03/11/19 Time Patient Seen: 09:12 Interval history: She is seen today to follow up the right leg cellulitis and venous insufficiency ulcer. The ulcer and the cellulitis are both improved today. Her daughter is visiting and she is updated on the plans. Her platelets have dropped from 115 down to 101 yesterday on the Lovenox. We are watching those closely. Her hemoglobin also dropped from 10.6 to 9.6. There are no signs of ongoing GI losses so far. Exam Vital Signs (past 8 hours): - 03/11/19 04:00 03/11/19 07:52 Temperature 99.3 F 98.9 F Pulse Rate 67 59 L Respiratory Rate 18 15 Blood Pressure 136/61 114/58 L Pulse Oximetry 99 100 Oxygen Delivery Method Room Air Oxygen Flow Rate 0 Narrative Exam Narrative: She is alert and oriented x3, no apparent distress, in a good frame of mind today with her daughter visiting and happy to see the improvement in her leg. Heart is regular rate and rhythm without murmur. Lungs are clear to auscultation bilaterally. Extremities have no ankle edema. The redness around the ulcer on the right anterior vega appears to have receded compared to yesterday as does the area that felt warm to the touch above the ulcer. The ulcer skin itself is now no longer depressed compared to the surrounding normal skin and has significant granulation tissue islands visible. Objective Labs Result Diagrams: 03/10/19 16:19 03/07/19 18:41 Labs: Laboratory Results - last 24 hr 03/10/19 16:19 WBC 4.3 L RBC 3.05 L Hgb 9.6 L Hct 27.6 L MCV 90.3 MCH 31.6 MCHC 35.0 RDW 14.0 Plt Count 101 L Neut % (Auto) 59.1 Lymph % (Auto) 27.9 [place] % (Auto) 9.2 Eos % (Auto) 2.6 Baso % (Auto) 1.2 Neut # (Auto) 2500 Lymph # (Auto) 1200 [place] # (Auto) 400 Eos # (Auto) 100 Baso # (Auto) 100 Assessment & Plan Assessment & Plan narrative: (1) Cellulitis of leg, right: Problem details: Enterococcus cellulitis of the right lower leg having failed outpatient therapy. This is improving now again on initially IV vancomycin and then an increase of the dose of IV ampicillin yesterday. It is pansensitive. The dose of ampicillin was increased to 1 g q.6h IV. Will follow the wound care center recommendations for dressing changes. Anticipate discharge on oral antibiotics in the next 1-3 days. (That will be a day-to-day decision.) Current visit: Yes Status: Acute (2) Skin ulcer of right lower leg: Problem details: Right lower extremity ulcer likely is venous insufficiency continue treatment as above. Consider biopsy. Qualifiers: Non-pressure ulcer stage: limited to breakdown of skin Qualified Code(s): L97.911 - Non-pressure chronic ulcer of unspecified part of right lower leg limited to breakdown of skin Current visit: No Status: Acute (3) Anemia: Problem details: Anemia, chronic Current visit: Yes Status: Acute (4) Hypertension: Problem details: Hypertension, chronic Current visit: Yes Status: Acute Assessment & Plan narrative: Anticipate 1-3 more days of IV antibiotics and then presumably discharge to home on oral Amoxicillin - duration to be determined Quality VTE Deep Vein Thrombosis/Pulmonary Embolism Present on Admission: No
[2019-03-11] MEDS: ENOXAPARIN 40 MG/0.4 ML SYRINGE SUBCUT (09:13)
[2019-03-11] MEDS: cloNIDine 0.1 MG TABLET PO (09:13)
[2019-03-11] MEDS: TAMOXIFEN 10 MG TABLET 20 MG PO (09:14)
[2019-03-11] MEDS: SODIUM CHLORIDE 0.9% FLUSH 10 ML IV ×3 (10:18→21:26)
[2019-03-11 11:26] VITALS: BP 132/73; PULSE 78; RESP 16; TEMP 37.3; O2SAT 99
[2019-03-11 11:54] LABS: Add Manual Diff / Slide Review NO; Basophils Absolute Auto 0 /uL (0-100); Basophils Percent Auto 0.9 % (0-2); Eosinophils Absolute Auto 100 /uL (0-450); Eosinophils Percent Auto 2.1 % (2-4); Hematocrit 30.1 % (36-46); Hemoglobin 10.5 g/dL (12.0-16.0); Lymphocytes Absolute Auto 1700 /uL (1100-4500); Mean Corpuscular HGB Conc 34.8 % (30-36); Mean Corpuscular Hemoglobin 31.4 PG (26-34); Mean Corpuscular Volume 90.1 fL (80-100); Monocytes Absolute Auto 500 /uL (0-900); Monocytes Percent Auto 8.5 % (3-14); Neutrophils Absolute Auto 3100 /uL (1500-7000); Neutrophils Percent Auto 57.5 % (50-75); Platelet Count 103 X10^3/uL (150-400); Red Blood Cell Count 3.34 X10^6/uL (4.0-5.2); Red Cell Distribution Width 14.3 % (11.6-14.8); White Blood Cell Count 5.4 X10^3/uL (4.5-11.0)
[2019-03-11 11:55] LABS: INR 1.1 (0.9-1.3); Prothrombin Time 12.7 SECONDS (10.1-12.7)
[2019-03-11 11:59] LABS: BUN Creatinine Ratio 17.1 (6-22); Blood Urea Nitrogen 12 mg/dL (7-17); Carbon Dioxide 28 mmol/L (22-32); Chloride 104 mmol/L (98-107); Estimated Glomerular Filt Rate > 60.0 mL/min (>60); Glucose 121 mg/dL (80-110); HEMOLYSIS < 15 (0-50); Potassium 3.8 mmol/L (3.4-5.1); Sodium 136 mmol/L (137-145)
[2019-03-11 12:11] LABS: Troponin I < 0.012 ng/mL (0.01-0.034)
--- NOTE | 2019-03-11 14:35 | PC.NURSE ---
0845 Pt awake, A&OX3, pleasant. resting in ,bed, was medicated for c/o nausea, no emesis noted. Pt ate breakfast, Dtr at bedside. No c/o.
--- NOTE | 2019-03-11 14:44 | PC.NURSE ---
1125 entered Pts room per Dtr request saying something is wrong with Mom, shes not right. Pt resting in bed, eyes closed,with right hand, Pt is gripping her dtrs hand very tightly, left hand in a fist. Pt does not open eyes when I request her to look at me, pt has appears to have eyelids purposely shut. Gently touched Pt on shoulder to get Pt attention, Pt statesdon't touch me. Continues to quality assurance/r&d lab technician dtr hand. vs wnl. Pt states she feels a littlle dizzy when I touch her, states don't talk. Had Chg RN assess Pt with me, and additional staff attorney assess. 1132 Pt opened eyes abruptly, turned head to the right where dtr standing, Pt in a blank stare. 1132 called staff memergency. Immediate response with code team. VS remain wnl. Pt able to speak, asks what's happening. Cont with lab draws, EKG, and put pt on tele. Pt ,has a PICC line, no iv to be placed in RUE dt Hx breast cancer. EKG is NSR, 1145 Pt gone per bed for CT scan. Pt is awake. 1153 CT complete, no bleeding seen per the Radiology dept., returned to room. Pt remains awake, states she is frightened. Dtr remains w/Pt. 1210 Dr Chen reviewed all labs, CT results, etc., spoke w/Pt and dtr, all is neg, No s/s stroke. NIH neg. 1300 Pt found to have a panic /anxiety attack. Dtr states will have her Moms Pyschiatrist come and talk with Pt. Pt under a lot of stress from very recent of the spouse. Dtr states the Pt did make eye contact with her, Pt not in a blank stare. 1430 Pt has been up to BRP, voided, Up for ambulation in the halls, sitting up in recliner chair. Pt able to drink w/o diff. Pt A & O X 3. 1500 Gave report to oncoming shift RN.
--- NOTE | 2019-03-11 14:47 | CM.DPC ---
DCP: continued: met at length with pt and her daughter after her event of earlier today with a code stroke being called. Pt is now sitting up in bedside chair and speaking at length re her ordeal. Discussed the d/c plan and issues and options around same and gave copy of the wound care nurse consult with Dr. Mitchell's plan to Dr. Chen. Will continue this note in the morning.
[2019-03-11 15:45] VITALS: BP 102/57; PULSE 64; RESP 17; TEMP 36.6; O2SAT 99
[2019-03-11] MEDS: MAGNESIUM HYDROXIDE 30 ML UDC PO (16:10)
--- NOTE | 2019-03-11 17:17 | PC.NURSE ---
Addendum entered by Emily Aguirre R.N. 03/11/19 18:37: Pt ambulatory in hallway with daughter. Pt remains calm, cooperative and independent in ADL's and care. Reports edema to RLE improved over admission to hospital. Kerlix wrap RLE dry and intact. Palpable pedal pulse right foot. Pt admits to baseline lymphadema to BL LE's. Has compression knee hi hose in place LLE. Denies pain, denies nausea. Original Note: Pt up in recliner awake, alert and conversant with staff and with daughter in room. Denies pain, denies nausea. Taking diet as provided by daughter Rossana. Requests bowel meds to aid in bowel function. Given prune juice and then milk of magnesia following meal. Pt is calm, cooperative. Plans for ambulation in hallway this evening shift with daughter.
[2019-03-11 20:00] VITALS: BP 137/70; PULSE 67; RESP 17; TEMP 37.4; O2SAT 99
[2019-03-12] VITALS (10 sets, daily range): BP systolic 105–130; BP diastolic 46–76; PULSE 60–84; RESP 16–18; TEMP 36.4–37.6; O2SAT 95–100
--- NOTE | 2019-03-12 00:39 | PC.NURSE ---
Patient awakened from sleep for vital signs/assessment. Is alert and oriented. Breath sounds CTA with RA sat of 97%. HRR. Denies nausea. BT present and abdomen is soft; reports she had BM yesterday. Denies dysuria, frequency or urgency. Is able to turn self in bed and daughter rooming in and assists patient to bathroom. Dressing to right LE is CDI with receding erythema. Edema also decreasing and now at 2+. Denies pain; does have soreness in left UE where PICC is inserted relieved by warm blanket. Bruising/swelling by PICC insertion site. Fall risk score is high as reports 1 fall in past 3 months, but is oriented and cooperative and daughter in room assisting her to bathroom so bed alarm is not currently in use.
[2019-03-12] MEDS: SODIUM CHLORIDE 0.9% 250 ML 21 ML IV (03:59)
[2019-03-12] MEDS: SODIUM CHLORIDE 0.9% FLUSH 10 ML IV ×3 (04:00→22:14)
[2019-03-12] MEDS: AMPICILLIN 1,000 MG in SODIUM CHLORIDE 0.9% 100 ML 200 ML IV ×4 (04:00→22:14)
[2019-03-12 05:58] LABS: Add Manual Diff / Slide Review NO; Basophils Absolute Auto 0 /uL (0-100); Basophils Percent Auto 0.4 % (0-2); Eosinophils Absolute Auto 100 /uL (0-450); Eosinophils Percent Auto 2.1 % (2-4); Hematocrit 28.3 % (36-46); Hemoglobin 9.7 g/dL (12.0-16.0); Lymphocytes Absolute Auto 1100 /uL (1100-4500); Lymphocytes Percent Auto 25.6 % (25-40); Mean Corpuscular HGB Conc 34.3 % (30-36); Mean Corpuscular Volume 90.5 fL (80-100); Monocytes Absolute Auto 400 /uL (0-900); Monocytes Percent Auto 8.1 % (3-14); Neutrophils Absolute Auto 2900 /uL (1500-7000); Neutrophils Percent Auto 63.8 % (50-75); Platelet Count 104 X10^3/uL (150-400); Red Blood Cell Count 3.13 X10^6/uL (4.0-5.2); Red Cell Distribution Width 14.3 % (11.6-14.8); White Blood Cell Count 4.5 X10^3/uL (4.5-11.0)
[2019-03-12] MEDS: ENOXAPARIN 40 MG/0.4 ML SYRINGE SUBCUT (09:14)
[2019-03-12] MEDS: TAMOXIFEN 10 MG TABLET 20 MG PO (09:14)
[2019-03-12] MEDS: BISACODYL 10 MG SUPP PR (10:45)
[2019-03-12] MEDS: MINERAL OIL 1 EACH ENEMA PR (12:00)
--- NOTE | 2019-03-12 12:37 | PC.NURSE ---
Addendum entered by Francine Santana R.N. 03/12/19 15:17: Dressing change to RLE per orders (approx 1430). Patient resting quietly in bed now, denies needs. Light in reach, alarm on. Original Note: Shift summary: Alert and oriented X3. Afebrile. Dressing to RLE C/D/I, plan to change a bit later today. Erythema to RLE has receded to well within previously marked margins. CMS+, PP+. Denies pain. Lungs CTA, HRR. Required a mineral oil enema and digital disimpaction of hard formed stools when she was unable to pass them on her own. Resting back in bed at this time. Call light in reach, bed alarm active.
--- NOTE | 2019-03-12 13:26 | OT.IP.TRT ---
Current Diagnoses Anemia, unspecified (03/07/19) Essential (primary) hypertension (03/07/19) Cellulitis of right lower limb (03/07/19) Non-pressure chronic ulcer of unspecified part of right lower leg limited to breakdown of skin (03/07/19) Occupational Therapy Treatment Note M3 OT- IP Subjective and Pain Start: 03/12/19 13:22 Freq: Status: Active Protocol: Document 03/12/19 13:23 [facility] (Rec: 03/12/19 13:26 [facility] [email or web address]) OT- Subjective Occupational Therapy Visit Type Type Administrative Note Notes Pt just completing bowel impaction earlier with nursing and not wanting to get up for OT eval, pt able to answer prior history and house set-up . PT to touch base later with pt for eval. To try again tomorrow for OT eval. Pt at this time thinking, OT not needed. In addition to touch base with pt's daughter regarding needs. Pt is open to going to skilled rehab if IV antibiotics is needed.
--- NOTE | 2019-03-12 13:34 | PT.IIE ---
Addendum entered and electronically signed by Betsey Gamez, PT 03/12/19 15:08: If pt is going to SNF for IV ABX, then she could benefit from therapies for establishment of HEP. However, if pt is NOT going to SNF for IV ABX, then she is safe to discharge home, preferably with HHPT for home safety assessment. Original Note: Current Diagnoses Anemia, unspecified (03/07/19) Essential (primary) hypertension (03/07/19) Cellulitis of right lower limb (03/07/19) Non-pressure chronic ulcer of unspecified part of right lower leg limited to breakdown of skin (03/07/19) Medical History (Last Reviewed 03/07/19 @ 20:23 by Alondra Blackwell MD) Breast cancer (Acute) Hypertension (Acute) Lymphedema (Acute) Ulcer of right lower extremity, limited to breakdown of skin (Acute) Physical Therapy Inpatient Evaluation/Re-Eval M2 PT-IP Current Condition Start: 03/12/19 10:18 Freq: NEEDED Status: Active Protocol: Document 03/12/19 13:26 [facility] (Rec: 03/12/19 13:34 [facility] [email or web address]) Physical Therapy Current Condition Current Condition Evaluation Date 03/12/19 Treatment Diagnosis RLE pain from cellulitis Weight Bearing Status Weight Bearing Status Weight Bear as Tolerated M3 PT-IP Subjective Start: 03/12/19 10:18 Freq: NEEDED Status: Active Protocol: Document 03/12/19 13:26 [facility] (Rec: 03/12/19 13:34 RS [email or web address]) Subjective Physical Therapy Visit Type Type Initial Evaluation Visit Start Time 12:40 Visit Stop Time 13:26 Total Visit Minutes 46 Physical Therapy Visit Comments Patient Comments Pt reports she can get around fine even without assist, doesn't feel like she needs PT but open to participating. Patient Goals Finish IV ABX at [facility] then d/c directly home CAPO Therapy Pain Assessment Pain When Pain Assessed At Rest Pain Present Pain Present Pain Reported M4 PT-IP Mobility and Gait Start: 03/12/19 10:18 Freq: NEEDED Status: Active Protocol: Document 03/12/19 13:26 RS (Rec: 03/12/19 13:34 RS [email or web address]) PT-Bed Mobility Assessment Supine to Sit Supine to Sit Independent Sit to Supine Sit to Supine Independent Scooting Scooting to Edge of Bed Independent PT-Transfer Assessment Sit to and From Stand Sit to and from Stand Standby Assistance Equipment Transfer Assistive Device Gait Belt Transfers Transfer Destination Bed Chair Toilet Transfer Technique walked Transfer Ability Level of Assist Standby Assistance Comments Mobility Comments Pt slow but steady Gait Assessment Gait Gait Assistance Required: Standby Assistance Distance (Feet) 20 Assistive Devices Assistive Device Gait Belt Gait Deviations General Gait Pattern Antalgic Factors Limiting Gait Function Factors Limiting Gait Function Pain Comments Gait Comments Pt with moderately antalgic gait pattern correlating with RLE pain, but despite this pt is relatively stable, no LOB even without AD. Stair Climbing Assessment Comments Stair Climbing Comments not tested PT-Balance Assessment Sitting Balance and Reactions Static Sitting Balance Ability Normal Dynamic Sitting Balance Ability Normal Standing Balance and Reactions Static Standing Balance Ability Good Dynamic Standing Balance Ability Good Device Used none M5 PT-IP Objective Assessments Start: 03/12/19 10:18 Freq: NEEDED Status: Active Protocol: Document 03/12/19 13:26 RS (Rec: 03/12/19 13:34 RS [email or web address]) Orientation Orientation/Cognition Level of Alertness Alert Orientation Name Age Birthday Month Date Year Day of Week Place Situation Language Function Ability No Deficits Noted Safety Awareness Understands Safety Issues Memory Description No Deficits Noted Gross Range of Motion Upper Extremity ROM Assessment Within Functional Limits Lower Extremity ROM Assessment Right Impaired Strength Upper Extremity Strength Assessment Within Functional Limits Lower Extremity Strength Assessment Right Impaired M7 PT-IP Assessment and Plan Start: 03/12/19 10:18 Freq: NEEDED Status: Active Protocol: Document 03/12/19 13:26 RS (Rec: 03/12/19 13:34 RS [email or web address]) PT Summary Assessment and Plan Potential Rehabilitation Potential Good Status of Condition at Evaluation Evolving Summary Impairments Pain Strength Gait Activity Tolerance Assessment Summary Pt presents with RLE pain that correlates with RLE cellulitis and open wound. Due to this pt does have antalgic gait pattern but is still relatively stable and at a low fall risk. Pt does demonstrate anticipated gross deconditioning with limited activity tolerance. Patient has potential for functional improvement and will benefit from ongoing subacute therapies at SNF. Pt will be discharging to SNF for IV abx. Pt would benefit from participation in skilled PT while there to address gross deconditioning. Pt has no other acute PT goals at this time, will sign off with anticipation that pt will continue to mobilize with nursing staff and/or family until discharged to SNF where subacute therapies will start. Frequency of Treatment Frequency Of Treatment Discharge Recommendations To Nursing Amount of Assist Needed Standby Assistance Discharge Recommendations PT Discharge Recommendations SNF Rehab
--- NOTE | 2019-03-12 15:43 | PM.PN.1 ---
Subjective Date Patient Seen: 03/12/19 Interval history: Jennyfer Hinds is a 73-year-old female with a past medical history significant for hypertension, breast cancer, and lymphedema likely due to venous insufficiency who presented with worsening cellulitis in the right lower extremity that failed multiple outpatient treatments. The patient is resting in bed comfortably. She appears lethargic although does not readily admit to this. Earlier this morning she was found to have fecal impaction and received mineral oil enema with digital disimpaction. She reports her constipation was very painful. She also endorses mild discomfort in right leg. Otherwise she has no complaints and denies headache, cough, shortness of breath, chest pain, abdominal pain, nausea, vomiting, fever, chills, or dysuria. She is voiding without difficulty. She is up ambulating with assistance. Exam Vital Signs (past 8 hours): - 03/12/19 07:59 03/12/19 08:05 03/12/19 09:15 Temperature 97.7 F Pulse Rate 71 68 Respiratory Rate 16 Blood Pressure 105/46 L 112/50 L Pulse Oximetry 97 97 03/12/19 14:00 03/12/19 15:20 Temperature 97.7 F 97.5 F L Pulse Rate 75 74 Respiratory Rate 16 17 Blood Pressure 114/76 118/60 Pulse Oximetry 100 99 Oxygen Delivery Method Room Air Oxygen Flow Rate 0 Narrative Exam Narrative: General: Elderly female lying in bed and in no acute distress, well-developed, well-nourished, mildly lethargic appearing but appropriately interactive. HEENT: Normocephalic, atraumatic. External ears without defect. Pupils equal, round, and reactive to light. Anicteric sclerae, moist conjunctivae, and no lid lag. Neck: Supple with full range of motion. No lymphadenopathy or thyromegaly. Cardiovascular: Regular rate and rhythm without murmurs, rubs, or gallops appreciated Pulmonary: Clear to auscultation bilaterally without crackles, wheezes, or rhonchi. Normal respiratory effort with no use of accessory muscles. Abdomen: Soft, bowel sounds present, nontender, nondistended. No hepatosplenomegaly or masses appreciated. Extremities: No clubbing or cyanosis. Mild bilateral lower extremity nonpitting edema to pretibial area bilaterally. Right leg with bandage in place C/D/I. Right lower extremity erythema is receding inside margins. Did not undress to view ulcer. Skin: Normal temperature, turgor, and texture; no subcutaneous nodules appreciated. Neurological: Cranial nerves grossly intact. Psychiatric: Depressed mood and normal affect. Alert and oriented to person, place, and time. Objective Labs Result Diagrams: 03/12/19 05:30 03/11/19 11:40 Labs: Laboratory Results - last 24 hr 03/12/19 05:30 WBC 4.5 RBC 3.13 L Hgb 9.7 L Hct 28.3 L MCV 90.5 MCH 31.0 MCHC 34.3 RDW 14.3 Plt Count 104 L Neut % (Auto) 63.8 Lymph % (Auto) 25.6 [place] % (Auto) 8.1 Eos % (Auto) 2.1 Baso % (Auto) 0.4 Neut # (Auto) 2900 Lymph # (Auto) 1100 [place] # (Auto) 400 Eos # (Auto) 100 Baso # (Auto) 0 Assessment & Plan Assessment & Plan narrative: Jennyfer Hinds is a 73-year-old female with a past medical history significant for hypertension, breast cancer, and lymphedema likely due to venous insufficiency who presented with worsening cellulitis in the right lower extremity that failed multiple outpatient treatments. 1. Enterococcus cellulitis of the right lower extremity, present on admission. Resolving. -Patient has been treated with multiple courses of antibiotics and has failed outpatient therapy. -Repeat right lower extremity wound culture grew Enterococcus which is pansensitive. -Vancomycin has been discontinued. Continue ampicillin 1 g every 6 hours. Patient may need to be discharged on IV antibiotic versus PO linezolid. -Wound Care has been consulted and we appreciate their time and care of the patient. Continue to follow recommendations for dressing changes. 2. Right lower extremity ulcer, likely secondary to venous insufficiency, present on admission. Stable. -Continue treatment as above. Consider outpatient biopsy and/or general surgery consultation in the future. 3. Anemia, chronic, present on admission. Stable. -Likely secondary to anemia of chronic disease. -Hemoglobin and hematocrit stable. No overt signs of bleeding. -Continue to monitor H&H periodically. 4. Hypertension, chronic, present on admission. Stable. -Continue clonidine 0.1 mg daily. Disposition: The patient's cellulitis and venous stasis ulcer infection with Enterococcus are very limited in regard to antibiotic therapy with the very few antibiotics being IV only. The patient is likely to discharge in several days to SNF for IV antibiotics and possibly rehab vs home with home health and PO linezolid depending on her clinical course and improvement. Quality VTE Deep Vein Thrombosis/Pulmonary Embolism Present on Admission: No
[2019-03-12] MEDS: TRAMADOL 50 MG TABLET PO (18:08)
--- NOTE | 2019-03-12 19:09 | PC.NURSE ---
Pt up to BRP to void, and change brief with dago pad, brief with urine and smear BM, reports rectum is sore from disimpaction this AM, medicated with tramadol 50mg PO. Doc and kaylene las added to MAR for bowel protocol. Provided pt with prune juice per request. Informed pt to drink extra water throughout day. Pt informed this information writer of pessary placed a while ago, pt is inc of urine. 99%RA, LS clear, denies SOB. Hx HTN, bilat lymphedema non pitting, drsg to right vega CDI and being changed daily, rates pain to BLE 3/10. Pt using FWW to ambulate to BRP. BT+ denies nausea. Pt reported Hx breast CA from , lumpectomy, chemo, and radiation. Daughter, Krystle, reports CA is and has been in remission for sometime, but pt continues to take clonidine and tamoxifen. Pt reports CA is ongoing and possible left breast as well, but daughter, who was taking pt to [facility], back during chemo Tx's reports this is incorrect, and there is NO CA to left breast. DaughterKrystle is rooming in. [facility].
[2019-03-12] MEDS: DOCUSATE 100 MG CAPSULE PO (22:14)
[2019-03-13 00:34] VITALS: BP 110/54; PULSE 70; RESP 17; TEMP 36.7; O2SAT 95
[2019-03-13] MEDS: AMPICILLIN 1,000 MG in SODIUM CHLORIDE 0.9% 100 ML 200 ML IV ×2 (03:40→09:31)
[2019-03-13 03:47] VITALS: BP 128/58; PULSE 74; RESP 16; TEMP 36.7; O2SAT 98
[2019-03-13 06:00] LABS: Add Manual Diff / Slide Review NO; Basophils Absolute Auto 0 /uL (0-100); Basophils Percent Auto 0.4 % (0-2); Eosinophils Absolute Auto 100 /uL (0-450); Eosinophils Percent Auto 1.7 % (2-4); Hematocrit 27.7 % (36-46); Hemoglobin 9.8 g/dL (12.0-16.0); Lymphocytes Absolute Auto 1300 /uL (1100-4500); Lymphocytes Percent Auto 24.8 % (25-40); Mean Corpuscular HGB Conc 35.3 % (30-36); Mean Corpuscular Hemoglobin 31.5 PG (26-34); Mean Corpuscular Volume 89.2 fL (80-100); Monocytes Absolute Auto 400 /uL (0-900); Monocytes Percent Auto 7.9 % (3-14); Neutrophils Absolute Auto 3400 /uL (1500-7000); Neutrophils Percent Auto 65.2 % (50-75); Platelet Count 117 X10^3/uL (150-400); Red Blood Cell Count 3.11 X10^6/uL (4.0-5.2); Red Cell Distribution Width 14.5 % (11.6-14.8); White Blood Cell Count 5.2 X10^3/uL (4.5-11.0)
[2019-03-13 06:10] LABS: Blood Urea Nitrogen 10 mg/dL (7-17); Calcium 8.3 mg/dL (8.4-10.2); Carbon Dioxide 28 mmol/L (22-32); Chloride 107 mmol/L (98-107); Estimated Glomerular Filt Rate > 60.0 mL/min (>60); Glucose 90 mg/dL (80-110); HEMOLYSIS < 15 (0-50); Potassium 3.6 mmol/L (3.4-5.1); Sodium 138 mmol/L (137-145)
[2019-03-13 06:57] LABS: Procalcitonin < 0.05 ng/mL (<0.5)
[2019-03-13 07:35] VITALS: BP 135/72; PULSE 75; RESP 18; TEMP 36.6; O2SAT 100
[2019-03-13 09:11] VITALS: O2SAT 98
[2019-03-13] MEDS: SODIUM CHLORIDE 0.9% 250 ML 21 ML IV (09:30)
[2019-03-13] MEDS: POLYETHYLENE GLYCOL 3350 17 GM POWD.PACK PO (09:32)
[2019-03-13] MEDS: SODIUM CHLORIDE 0.9% FLUSH 10 ML IV (09:32)
[2019-03-13] MEDS: DOCUSATE 100 MG CAPSULE PO (09:32)
[2019-03-13] MEDS: ENOXAPARIN 40 MG/0.4 ML SYRINGE SUBCUT (09:33)
[2019-03-13] MEDS: TAMOXIFEN 10 MG TABLET 20 MG PO (09:34)
--- NOTE | 2019-03-13 10:19 | PC.NURSE ---
Addendum entered by Francine Santana R.N. 03/13/19 16:06: Discharge: Reviewed discharge instructions thoroughly with patient and her daughter Mara. Informed them that all 4 scripts have been called in to [facility] to be picked up today. Instructed to take abx as directed and for full course, even if the leg looks better. Instructed to let MD know immediately if she has any issues tolerating the antibiotic because they would not want her to stop it without getting a new script to replace it. She is planning to follow up at wound care clinic on 03/15 and will also be followed by home health. Instructed to call MD immediately or return to hospital with s/sx worsening infection, increased redness/pain/swelling in RLE, or with any other concerns that may arise. She was encouraged to find a PCP and her daughter Mara has some names of local PCP's and is going to help her get established with one of them. Patient and daughter verbalized understanding of all d/c instructions and stated no further questions. All personal belongings sent with patient. Taken out to private vehicle by nursing staff. Addendum entered by Francine Santana R.N. 03/13/19 14:41: Dressing change done with patient and her daughter. They both feel that they are capable of managing this daily dressing change at home (when not being changed by HH RN or wound care clinic). Provided with enough dressing supplies to get them through until HH establishes. Printed out the dressing change instructions we have been following here and provided to patient. PICC line dc'd per protocol and with good hemostasis, patient tolerated without issue and is lying supine for 30+ minutes. Calls appropriately, light in reach. Waiting on Dr Padilla to finalize d/c scripts before I go over her instructions. Original Note: Shift summary: Awake and alert, oriented X3. Ambulating halls and showered this morning, all with her daughter's help. Dressing changed to RLE after shower, see nursing assessment for details. RLE elevated on pillows. Lungs CTA, HRR. CMS+, PP+. Denies pain. PICC site in LUE WNL, patient reports it is becoming less sore each day. Reports a good BM this morning. Resting in bed, ok to be OOB with daughter. Able to make needs known and calls appropriately. Bed alarm off while daughter is here, will activate when/if she leaves. Call light in reach.
--- NOTE | 2019-03-13 11:20 | OT.IP.TRT ---
Current Diagnoses Anemia, unspecified (03/07/19) Essential (primary) hypertension (03/07/19) Cellulitis of right lower limb (03/07/19) Non-pressure chronic ulcer of unspecified part of right lower leg limited to breakdown of skin (03/07/19) Occupational Therapy Treatment Note M3 OT- IP Subjective and Pain Start: 03/12/19 13:22 Freq: Status: Active Protocol: Document 03/13/19 11:19 [facility] (Rec: 03/13/19 11:20 [facility] [email or web address]) OT- Subjective Occupational Therapy Visit Type Type Administrative Note Notes Touched base with pt and pt states does not feel that she need any OT at this time, PT already evaled and discharged pt from services as she is mostly independent with her needs and has a supportive family to assist as well.
[2019-03-13 11:26] VITALS: BP 148/87; PULSE 71; RESP 18; TEMP 36.8; O2SAT 100
--- NOTE | 2019-03-13 12:20 | P.DS_ITS ---
History of Present Illness Date Patient Seen: 03/07/19 Chief complaint: infection of right leg Narrative: Written Dr. Neely: 73-year-old female presents with worsening cellulitis in the right lower extremity that has failed multiple outpatient treatments. She initially was seen around the 15 of February and was given some Keflex for cellulitis associated with some venous ulcers she was seen subsequently a week later and placed on Augmentin cultures were taken and the cultures eventually grew out both and Enterococcus and a Staph species. She was then after she finished a course of Augmentin was placed on doxycycline and that finished yesterday. Despite all that treatment she has had worsening of the ulceration worsening of the cellulitis and swelling and redness. The redness now is extensive from her foot all the way up to the knee and the swelling goes beyond the knee up into the th igh. She is followed by wound clinic they saw her today she they thought that she would benefit from IV antibiotic therapy also Discharge Providers Date of admission: 03/07/19 17:27 Discharge Date: 03/13/19 Consults: 03/09/19 12:02 Consult to Wound Care Routine Comment: Consulting Provider: [facility] 03/12/19 10:22 Consult to Occupational Therapy Evaluate & Treat Comment: Physician Instructions: Evaluate and treat Consult to Physical Therapy Evaluate & Treat Comment: Physician Instructions: Evaluate and Treat Discharge provider: Allie Padilla DO Summary Discharge Diagnosis: 1. Enterococcus cellulitis of the right lower extremity, present on admission. Resolving. 2. Right lower extremity ulcer, likely secondary to venous insufficiency, present on admission. Stable. 3. Anemia, chronic, present on admission. Stable. 4. Hypertension, chronic, present on admission. Stable. 5. History of breast cancer. Hospital Course: Jennyfer Hinds is a 73-year-old female with a past medical history significant for hypertension, breast cancer, and lymphedema likely due to venous insufficiency who presented with worsening cellulitis in the right lower extremity that failed multiple outpatient treatments. 1. Enterococcus cellulitis of the right lower extremity, present on admission. Resolving. -Patient has been treated with multiple courses of antibiotics and has failed outpatient therapy. -Repeat right lower extremity wound culture grew Enterococcus which is pansensitive. -Vancomycin was been discontinued. Continued ampicillin 1 g every 6 hours. Discussed patient with infectious disease at [facility] who recommended amoxicillin 500 mg 3 times daily to complete 14 day course. Linezolid was considered but platelets were low normal at 117 and did not want to exacerbate thrombocytopenia. -Wound Care has been consulted and we appreciate their time and care of the patient. Continued to follow recommendations for dressing changes and patient has scheduled follow-up with Dr. Garber on 03/15. -Home health arranged for continued wound care and dressing changes. 2. Right lower extremity ulcer, likely secondary to venous insufficiency, present on admission. Stable. -Continued treatment as above. Consider outpatient biopsy and/or general surgery consultation for consideration of radioablation in the future. 3. Thrombocytopenia, secondary to acute infection, present on admission. Resolving. -Secondary to acute inflammatory response. 4. Constipation, likely chronic, present on admission. Stable. -Patient required mineral oil enema and digital disimpaction. -started bowel regimen with Colace 100 mg twice daily and MiraLax 17 g daily. May titrate both medications to effect. 5. Anemia, chronic, present on admission. Stable. -Likely secondary to anemia of chronic disease. -Hemoglobin and hematocrit stable. No overt signs of bleeding. -Continued to monitor H&H periodically. 6. Hypertension, chronic, present on admission. Stable. -Continued clonidine 0.1 mg daily. 7 . History of breast cancer. -Patient previously had right breast cancer status post lumpectomy, chemotherapy, and radiation. Patient reports questionable left breast involvement and is planning to follow up with Hortencia Augustin. -Continued tamoxifen 10 mg daily. Status at Discharge Overall status at discharge: patient is progressing back to baseline Exam Vital Signs (past 8 hours): - 03/13/19 07:35 03/13/19 09:11 03/13/19 11:26 Temperature 97.9 F 98.2 F Pulse Rate 75 71 Respiratory Rate 18 18 Blood Pressure 135/72 148/87 H Pulse Oximetry 100 98 100 Oxygen Delivery Method Room Air Oxygen Flow Rate 0 Narrative Exam Narrative: General: Elderly female lying in bed and in no acute distress, well-developed, well-nourished, mildly lethargic appearing but appropriately interactive. HEENT: Normocephalic, atraumatic. External ears without defect. Pupils equal, round, and reactive to light. Anicteric sclerae, moist conjunctivae, and no lid lag. Neck: Supple with full range of motion. No lymphadenopathy or thyromegaly. Cardiovascular: Regular rate and rhythm without murmurs, rubs, or gallops appreciated Pulmonary: Clear to auscultation bilaterally without crackles, wheezes, or rhonchi. Normal respiratory effort with no use of accessory muscles. Abdomen: Soft, bowel sounds present, nontender, nondistended. No hepatosplenomegaly or masses appreciated. Extremities: No clubbing or cyanosis. Mild bilateral lower extremity nonpitting edema to pretibial area bilaterally. Right leg with bandage in place C/D/I. Right lower extremity erythema is receding inside margins. Ulcer is healing with granulation tissue present. Skin: Normal temperature, turgor, and texture; no subcutaneous nodules appreciated. Neurological: Cranial nerves grossly intact. Psychiatric: Depressed mood and normal affect. Alert and oriented to person, place, and time. Objective Labs Result Diagrams: 03/13/19 05:45 03/13/19 05:45 Labs: Laboratory Results - last 24 hr 03/13/19 03/13/19 03/13/19 05:45 05:45 05:45 WBC 5.2 RBC 3.11 L Hgb 9.8 L Hct 27.7 L MCV 89.2 MCH 31.5 MCHC 35.3 RDW 14.5 Plt Count 117 L Neut % (Auto) 65.2 Lymph % (Auto) 24.8 L [place] % (Auto) 7.9 Eos % (Auto) 1.7 L Baso % (Auto) 0.4 Neut # (Auto) 3400 Lymph # (Auto) 1300 [place] # (Auto) 400 Eos # (Auto) 100 Baso # (Auto) 0 Sodium 138 Potassium 3.6 Chloride 107 Carbon Dioxide 28 BUN 10 Creatinine 0.50 L Estimated GFR > 60.0 BUN/Creatinine Ratio 20.0 Glucose 90 Calcium 8.3 L Procalcitonin < 0.05 Discharge Plan Discharge Plan Patient Disposition: Home Health Service Discharge comment: You're being discharged home with home health for nursing to perform wound care and dressing changes. Please follow-up with Dr. Garber at the [facility] at your scheduled appointment. You were prescribed amoxicillin 500 mg three times daily for 8 days. Please continue to elevate your extremity as often as possible and you were given a handout regarding RICE therapy. Recommend surgical consult to address venous insufficiency ulcer. Discharge Med Rec/Prescriptions Prescriptions: New polyethylene glycol 3350 17 gram Powder In Packet 17 gm PO DAILY Qty: 30 RF: 0 docusate sodium [DOK] 100 mg Capsule 100 mg PO BID Qty: 30 RF: 0 amoxicillin 500 mg capsule 500 mg PO TID Qty: 24 RF: 0 ondansetron HCl 4 mg tablet 4 mg PO BID-TID PRN (Reason: nausea and vomiting) Qty: 20 RF: 0 Continued clonidine HCl 0.1 mg PO DAILY RF: 0 pybldagsqrdh-Pb-xmam-minerals 2 tab PO DAILY RF: 0 tamoxifen 10 mg PO DAILY RF: 0 tramadol 50 mg tablet 50 mg PO Q6H PRN (Reason: pain) Qty: 14 RF: 0 Follow up/Referrals: Joseph Garber MD [Physician] - 03/15/19 11:15 am (Right leg wound and cellulitis) Provider Discharge Instructions Diet: Low-fat, Low-sodium and Low-cholesterol Activity: Activity as tolerated Other treatments: Dr Mitchell should draw blood to check your platelet levels at your follow up appt on 03/15. Visit Report/Discharge Packet Instructions: DI for Cellulitis -- Adult, How To Perform RICE (Rest, Ice, Compress, Elevate), Stool Softeners, Ondansetron, Polyethylene Glycol 3350, Amoxicillin Discharge Data Attending Provider: Marii Wilson Admit Date/Time: 03/07/19 17:27 Quality VTE Deep Vein Thrombosis/Pulmonary Embolism Present on Admission: No
--- NOTE | 2019-03-13 13:39 | CM.DPC ---
DCP: continued: Dr. Padilla spoke with pt today has deemed her stable for the home setting and with HH RN if pt will accept this. Followup also with the [facility] clinic. Have met a few times thus far today with pt and had conversations with the therapy team as well as pt's sister Hermelinda De La Rosa and with pt's daughter Mara. Mara has also spoken with Dr. Padilla as she is concerned re her mother's desire to go home by herself. She confirms that, contrary to what pt told Dr. Padilla, she will not be able to stay with her as she has a family to care for in [place] but she will be available for prn assist. She had been very hopeful that her mother would go to [facility] for rehab/recovery as per prior plan but now that DR. Padilla has offered the oral antibiotic option but wants home and Dr. Padilla is supporting her decision. Pt did not work with OT today but she was up with nursing mobilizing and did take a shower. She is to keep her leg elevated at home as much as possible. She is agreeable after some discussion to have HH RN come in to follow along with [facility] team (and have just confirmed with Carlie/Ember that Dr. Joseph Garber will be available to follow as PCP in terms of the HH management as the HH RN will be for wound care. Pt's sister Hermelinda De La Rosa Kartik/[place] [phone] will be available for prn assist. agency list: discussed: referral now to [facility]/accepted/ they will be out within the 48 hr post d/c time frame. Did briefly discuss the 30 day window of time that would allow for consideration of a snf stay if pt were to fail in the home setting. Pt at this time plans to drive herself to the wound clinic and plans to do her own dressing changes but her sister and her daughter will continue to discuss this with her after she goes home.
--- NOTE | 2019-03-14 10:40 | CM.DPNOTE ---
Per MD, message left from pt's Dtr Mara Hinds regarding pt's discharge home with [facility] yesterday 03/13/19 and Dtr frustrated that HH not opening the pt to service today (24 hrs from d/c). requested DCP call Dtr back to follow up on the discharged pt. [facility] called [facility] and confirmed that they have the pt slotted for opening tomorrow 03/15/19 which is within the 48 hr timeframe and [place] states they were not requested for urgent 24 hr start date and therefore do not have any openings for today but spoke with pt and Dtr and informed them that if another appointment is cancelled for their RN's then they will work hard to get out to the pt's to open her to service today but its not a guarantee. SW called pt's Dtr Mara ([phone]) and explained role and Dtr was very pleasant and appreciative but clearly disappointed and frustrated that the medical team did not encourage the pt towards SNF more to allow for at least another week of care to fully clear up pt's infection as pt has multiple failed outpt attempts to clear up infection and Dtr has had to be very vigilant with pt to keep compliant with meds and care. Dtr had requested HH to start within 24 hrs and when she discovered it would be 48 hrs she was very worried that pt would again have a flare of infection and readmit to the hospital. Dtr did not feel heard on her requests for increased care for the pt as she has been bedside with the pt for her multiple wound admits. SW provided the Patient Complaint Reporting Info but Dtr declined as she stated she just wanted to provide this feedback to MD in case pt ends up getting admitted again and hopes her concerns and requests are better listened to. Dtr currently has pt at pt's PCP office for follow up already and is aware [facility] trying to see pt today if possible and for sure tomorrow along with Dr. Mitchell with Wound Care appointment tomorrow. Dtr appreciative of SW listening and calling to hear her concerns. ELOINA Knight
== END 2019-03-13 16:19 | disposition home health service (06) | DRG 603 ==
LOC: ED 15:02 → AC 17:27
PROVIDERS: Family Medicine; Internal Medicine; Admitting Provider Internal Medicine; Emergency Provider Emergency Medicine; Visit Provider Internal Medicine
DX: L03.115 Cellulitis of right lower limb (principal); L97.811 Non-pressure chronic ulcer of other part of right lower leg limited to breakdown of skin; I87.331 Chronic venous hypertension (idiopathic) with ulcer and inflammation of right lower extremity; B95.2 Enterococcus as the cause of diseases classified elsewhere; I87.2 Venous insufficiency (chronic) (peripheral); K59.00 Constipation, unspecified; I10 Essential (primary) hypertension; R41.0 Disorientation, unspecified; D64.9 Anemia, unspecified; M79.661 Pain in right lower leg; I89.0 Lymphedema, not elsewhere classified; B95.7 Other staphylococcus as the cause of diseases classified elsewhere; I73.9 Peripheral vascular disease, unspecified
CPT/HCPCS: 29581; 36415; 36569; 36591; 36592; 70450; 80048; 80053; 80202; 84145; 84484; 85025; 85610; 87040; 87070; 87077; 87186; 87205; 93005; 96365; 97161; 97530; 99213; 99282; 99284; J0290; J1650; J2405; J3370

== ENCOUNTER → 2019-03-15 10:56 | Outpatient (CLI) | payer MEDICARE, BC, SELFPAY ==
[2019-03-14 11:26] VITALS: BMI 29.1
== END ==
PROVIDERS: Visit Provider Family Medicine
DX: I87.311 Chronic venous hypertension (idiopathic) with ulcer of right lower extremity (principal); L97.812 Non-pressure chronic ulcer of other part of right lower leg with fat layer exposed; I89.0 Lymphedema, not elsewhere classified; M79.604 Pain in right leg
CPT/HCPCS: 87070; 87075; 87077; 87186; 87205; 97597; 97598; 99214

== ENCOUNTER → 2019-03-15 17:30 | Outpatient (CLI) | payer MEDICARE, BC, SELFPAY ==
[2019-03-14 11:26] VITALS: BMI 29.1
[2019-03-15 17:41] LABS: RBC Urine None Seen (0-5/HPF)
[2019-03-15 18:17] LABS: Bilirubin Urine UA NEGATIVE (NEGATIVE); Color Urine UA YELLOW; Glucose Urine UA NEGATIVE (Negative); Ketones Urine UA NEGATIVE (NEGATIVE); Leukocyte Esterase Urine UA TRACE (NEGATIVE); Nitrite Urine UA NEGATIVE (Negative); Occult Blood Urine UA NEGATIVE (Negative); Protein Urine UA TRACE (Negative)
[2019-03-15 19:04] LABS: Amorphous Sediment Urine 1+; Appearance Urine UA Slightly Cloudy; Bacteria Urine Occasional (0-1); Mucus Urine 1+ (Negative); Squamous Epithelial Cell Urine 10-30 /HPF (0-5/HPF); WBC Urine 1-5/HPF (0-5/HPF)
[2019-03-15 19:05] LABS: Culture Indicated Urine Cult Not Indicated
== END ==
PROVIDERS: PCP Registered Nurse; Visit Provider Registered Nurse
DX: R30.0 Dysuria (principal)
CPT/HCPCS: 81001

== ENCOUNTER → 2019-03-22 13:01 | Outpatient (CLI) | payer MEDICARE, BC, SELFPAY ==
[2019-03-14 11:26] VITALS: BMI 29.1
== END ==
PROVIDERS: PCP Registered Nurse; Visit Provider Family Medicine
DX: I87.2 Venous insufficiency (chronic) (peripheral) (principal); L97.812 Non-pressure chronic ulcer of other part of right lower leg with fat layer exposed; I89.0 Lymphedema, not elsewhere classified; L03.115 Cellulitis of right lower limb; B95.2 Enterococcus as the cause of diseases classified elsewhere
CPT/HCPCS: 99213

== ENCOUNTER → 2019-03-29 12:24 | Outpatient (CLI) | payer MEDICARE, BC, SELFPAY ==
[2019-03-14 11:26] VITALS: BMI 29.1
[2019-04-18 15:09] LABS: Fecal Immunochemical Test NOT DETECTED (NOT DETECTED)
== END ==
PROVIDERS: PCP Registered Nurse; Visit Provider Registered Nurse
DX: Z12.11 Encounter for screening for malignant neoplasm of colon (principal)
CPT/HCPCS: 82274

== ENCOUNTER → 2019-03-29 13:13 | Outpatient (CLI) | payer MEDICARE, BC, SELFPAY ==
[2019-03-14 11:26] VITALS: BMI 29.1
== END ==
PROVIDERS: PCP Registered Nurse; Visit Provider Family Medicine
DX: I87.311 Chronic venous hypertension (idiopathic) with ulcer of right lower extremity (principal); L97.811 Non-pressure chronic ulcer of other part of right lower leg limited to breakdown of skin; L08.9 Local infection of the skin and subcutaneous tissue, unspecified
CPT/HCPCS: 87070; 87075; 87205; 99214

== ENCOUNTER → 2019-03-31 12:21 | Outpatient (CLI) | payer MEDICARE, BC, SELFPAY ==
[2019-03-14 11:26] VITALS: BMI 29.1
[2019-03-31 13:00] LABS: Add Manual Diff / Slide Review NO; Basophils Absolute Auto 0 /uL (0-100); Basophils Percent Auto 0.4 % (0-2); Eosinophils Absolute Auto 100 /uL (0-450); Eosinophils Percent Auto 1.3 % (2-4); Hematocrit 33.2 % (36-46); Hemoglobin 11.6 g/dL (12.0-16.0); Lymphocytes Absolute Auto 1400 /uL (1100-4500); Lymphocytes Percent Auto 20.7 % (25-40); Mean Corpuscular HGB Conc 34.9 % (30-36); Mean Corpuscular Hemoglobin 31.1 PG (26-34); Mean Corpuscular Volume 89.2 fL (80-100); Monocytes Absolute Auto 500 /uL (0-900); Monocytes Percent Auto 7.1 % (3-14); Neutrophils Absolute Auto 4800 /uL (1500-7000); Neutrophils Percent Auto 70.5 % (50-75); Platelet Count 135 X10^3/uL (150-400); Red Blood Cell Count 3.72 X10^6/uL (4.0-5.2); Red Cell Distribution Width 13.9 % (11.6-14.8); White Blood Cell Count 6.9 X10^3/uL (4.5-11.0)
[2019-03-31 13:05] LABS: Hemoglobin A1C% w Est Avg Glu 4.5 % (4.0-6.0)
[2019-03-31 13:30] LABS: Alanine Aminotransferase 9 IU/L (9-52); Albumin 3.5 g/dL (3.5-5.0); Albumin Globulin Ratio 1.3 (1.0-2.8); Alkaline Phosphatase 43 U/L (38-126); Aspartate Aminotransferase 20 IU/L (14-36); BUN Creatinine Ratio 21.7 (6-22); Bilirubin Total 0.6 mg/dL (0.2-1.3); Blood Urea Nitrogen 13 mg/dL (7-17); Calcium 8.9 mg/dL (8.4-10.2); Carbon Dioxide 23 mmol/L (22-32); Chloride 110 mmol/L (98-107); Cholesterol 147 mg/dL (140-199); Estimated Glomerular Filt Rate > 60.0 mL/min (>60); Globulin 2.7 g/dL (1.7-4.1); Glucose 96 mg/dL (80-110); HDL Cholesterol 45 mg/dL (40-60); HEMOLYSIS < 15 (0-50); LDL Cholesterol Calculated 78 mg/dL (<100); Sodium 142 mmol/L (137-145); Total Protein 6.2 g/dL (6.3-8.2); Triglycerides 122 mg/dL (35-150)
== END ==
PROVIDERS: PCP Registered Nurse; Visit Provider Registered Nurse
DX: L03.115 Cellulitis of right lower limb (principal); Z13.1 Encounter for screening for diabetes mellitus; Z13.6 Encounter for screening for cardiovascular disorders; R73.9 Hyperglycemia, unspecified
CPT/HCPCS: 36415; 80053; 80061; 83036; 85025

== ENCOUNTER → 2019-04-03 12:56 | Outpatient (CLI) | payer MEDICARE, BC, SELFPAY ==
[2019-03-14 11:26] VITALS: BMI 29.1
== END ==
PROVIDERS: PCP Registered Nurse; Visit Provider Podiatrist Primary Podiatric Medicine
DX: I87.2 Venous insufficiency (chronic) (peripheral) (principal); L97.811 Non-pressure chronic ulcer of other part of right lower leg limited to breakdown of skin
CPT/HCPCS: 97602

== ENCOUNTER → 2019-04-13 12:47 | Outpatient (CLI) | payer MEDICARE, BC, SELFPAY ==
[2019-03-14 11:26] VITALS: BMI 29.1
== END ==
PROVIDERS: PCP Registered Nurse; Visit Provider Registered Nurse
DX: M85.851 Other specified disorders of bone density and structure, right thigh (principal); Z78.0 Asymptomatic menopausal state; Z90.722 Acquired absence of ovaries, bilateral; Z82.62 Family history of osteoporosis; Z87.891 Personal history of nicotine dependence
CPT/HCPCS: 77080

== ENCOUNTER → 2019-04-16 15:03 | Outpatient (CLI) | payer MEDICARE, BC, SELFPAY ==
[2019-03-14 11:26] VITALS: BMI 29.1
== END ==
PROVIDERS: PCP Registered Nurse; Visit Provider Family Medicine
DX: I87.311 Chronic venous hypertension (idiopathic) with ulcer of right lower extremity (principal); L97.811 Non-pressure chronic ulcer of other part of right lower leg limited to breakdown of skin; I89.0 Lymphedema, not elsewhere classified
CPT/HCPCS: 97597; 97598

== ENCOUNTER → 2019-04-20 13:55 | Outpatient (CLI) | payer MEDICARE, BC, SELFPAY ==
[2019-03-14 11:26] VITALS: BMI 29.1
== END ==
PROVIDERS: PCP Registered Nurse; Visit Provider Family Medicine
DX: I87.311 Chronic venous hypertension (idiopathic) with ulcer of right lower extremity (principal); L97.811 Non-pressure chronic ulcer of other part of right lower leg limited to breakdown of skin; I89.0 Lymphedema, not elsewhere classified
CPT/HCPCS: 29581; 99213

== ENCOUNTER → 2019-04-27 13:14 | Outpatient (CLI) | payer MEDICARE, BC, SELFPAY ==
[2019-03-14 11:26] VITALS: BMI 29.1
== END ==
PROVIDERS: PCP Registered Nurse; Visit Provider Family Medicine
DX: I89.0 Lymphedema, not elsewhere classified (principal); I87.2 Venous insufficiency (chronic) (peripheral); L97.811 Non-pressure chronic ulcer of other part of right lower leg limited to breakdown of skin
CPT/HCPCS: 99213

== ENCOUNTER → 2019-05-04 12:55 | Outpatient (CLI) | payer MEDICARE, BC, SELFPAY ==
[2019-03-14 11:26] VITALS: BMI 29.1
== END ==
PROVIDERS: PCP Registered Nurse; Visit Provider Family Medicine
DX: I89.0 Lymphedema, not elsewhere classified (principal); I87.311 Chronic venous hypertension (idiopathic) with ulcer of right lower extremity; L97.811 Non-pressure chronic ulcer of other part of right lower leg limited to breakdown of skin; R60.0 Localized edema
CPT/HCPCS: 99213

== ENCOUNTER → 2019-05-18 13:55 | Outpatient (CLI) | payer MEDICARE, BC, SELFPAY ==
[2019-03-14 11:26] VITALS: BMI 29.1
== END ==
PROVIDERS: PCP Registered Nurse; Visit Provider Family Medicine
DX: I87.311 Chronic venous hypertension (idiopathic) with ulcer of right lower extremity (principal); L97.811 Non-pressure chronic ulcer of other part of right lower leg limited to breakdown of skin; I89.0 Lymphedema, not elsewhere classified
CPT/HCPCS: 87070; 87077; 87147; 87186; 87205; 97597

== ENCOUNTER → 2019-05-29 09:45 | Outpatient (CLI) | payer MEDICARE, BC, SELFPAY ==
[2019-03-14 11:26] VITALS: BMI 29.1
== END ==
PROVIDERS: PCP Registered Nurse; Visit Provider Family Medicine
DX: I87.331 Chronic venous hypertension (idiopathic) with ulcer and inflammation of right lower extremity (principal); L97.812 Non-pressure chronic ulcer of other part of right lower leg with fat layer exposed; I89.0 Lymphedema, not elsewhere classified; I73.9 Peripheral vascular disease, unspecified
CPT/HCPCS: 99212; 99213

== ENCOUNTER → 2019-06-12 13:46 | Outpatient (CLI) | payer MEDICARE, BC, SELFPAY ==
[2019-03-14 11:26] VITALS: BMI 29.1
== END ==
PROVIDERS: PCP Registered Nurse; Visit Provider Family Medicine
DX: I87.331 Chronic venous hypertension (idiopathic) with ulcer and inflammation of right lower extremity (principal); L97.812 Non-pressure chronic ulcer of other part of right lower leg with fat layer exposed; I89.0 Lymphedema, not elsewhere classified; I73.9 Peripheral vascular disease, unspecified
CPT/HCPCS: 99213

== ENCOUNTER → 2019-06-26 14:53 | Outpatient (CLI) | payer MEDICARE, BC, SELFPAY ==
[2019-06-14 15:07] VITALS: BMI 29.1
== END ==
PROVIDERS: PCP Registered Nurse; Visit Provider Family Medicine
DX: I87.331 Chronic venous hypertension (idiopathic) with ulcer and inflammation of right lower extremity (principal); I89.0 Lymphedema, not elsewhere classified; I73.9 Peripheral vascular disease, unspecified
CPT/HCPCS: 99212; 99213

== ENCOUNTER → 2019-11-12 14:23 | Outpatient (CLI) | payer MEDICARE, BC, SELFPAY ==
[2019-06-14 15:07] VITALS: BMI 29.1
== END ==
PROVIDERS: PCP Registered Nurse; Referring Provider Registered Nurse; Visit Provider Family Medicine
DX: I87.2 Venous insufficiency (chronic) (peripheral) (principal); L97.811 Non-pressure chronic ulcer of other part of right lower leg limited to breakdown of skin; I89.0 Lymphedema, not elsewhere classified
CPT/HCPCS: 11042; 87070; 87075; 87077; 87147; 87186; 87205; 99213; 99214

== ENCOUNTER 2019-11-12 19:37 | Inpatient (IN) | payer MEDICARE, BC, SELFPAY ==
[2019-06-14 15:07] VITALS: BMI 29.1
[2019-11-12 19:45] VITALS: BP 196/88; PULSE 86; RESP 20; O2SAT 100
--- NOTE | 2019-11-12 19:49 | DI.RAD.S_ITS ---
PROCEDURE: XR HIP W PEL IF DONE RT 2V INDICATIONS: Right hip pain after fall. TECHNIQUE: AP pelvis with lateral view(s) of the right hip(s). COMPARISON: None. FINDINGS: Bones: There is a comminuted intertrochanteric fracture of the proximal right femur. There right femoral head is anatomically seated. Probable nondisplaced superior and inferior right pubic renal fractures. No suspicious bony lesions. Soft tissues: The visualized bowel gas pattern is normal. No suspicious soft tissue calcifications. IMPRESSION: Comminuted intertrochanteric fracture. Dictated by: Tosin Urrutia M.D. on 11/12/2019 at 21:16 Approved by: Tosin Urrutia M.D. on 11/12/2019 at 21:18
--- NOTE | 2019-11-12 20:26 | DI.RAD.S_ITS ---
PROCEDURE: XR CHEST 1V INDICATIONS: fall, tender anterior rright chest TECHNIQUE: One view of the chest was acquired. COMPARISON: [facility], , XR CHEST FOR PICC 1V, 03/07/2019, 17:50. FINDINGS: Surgical changes and devices: None. Lungs and pleura: Chronic diffuse interstitial prominence. No focal consolidation or pleural effusions. No pneumothorax. Mediastinum: Mediastinal contours appear normal. Heart size is normal. Bones and chest wall: No suspicious bony lesions. Overlying soft tissues appear unremarkable. IMPRESSION: No acute cardiopulmonary disease. Chronic interstitial prominence. Dictated by: Tosin Urrutia M.D. on 11/12/2019 at 21:45 Approved by: Tosin Urrutia M.D. on 11/12/2019 at 21:46
[2019-11-12] MEDS: diphenhydrAMINE 50 MG/ML VIAL 25 MG IV (20:49)
[2019-11-12] MEDS: KETOROLAC 60 MG/2 ML VIAL 15 MG IV (20:49)
[2019-11-12] MEDS: LORazepam 2 MG/ML INJ 0.5 MG IV (20:50)
[2019-11-12 20:52] LABS: Add Manual Diff / Slide Review NO; Basophils Absolute Auto 0 /uL (0-100); Basophils Percent Auto 0.4 % (0-2); Eosinophils Absolute Auto 0 /uL (0-450); Eosinophils Percent Auto 0.2 % (2-4); Hematocrit 36.1 % (36-46); Hemoglobin 12.5 g/dL (12.0-16.0); Lymphocytes Absolute Auto 1600 /uL (1100-4500); Lymphocytes Percent Auto 14.1 % (25-40); Mean Corpuscular HGB Conc 34.7 % (30-36); Mean Corpuscular Hemoglobin 31.2 PG (26-34); Mean Corpuscular Volume 89.8 fL (80-100); Monocytes Absolute Auto 500 /uL (0-900); Monocytes Percent Auto 4.8 % (3-14); Neutrophils Absolute Auto 8800 /uL (1500-7000); Neutrophils Percent Auto 80.5 % (50-75); Platelet Count 162 X10^3/uL (150-400); Red Blood Cell Count 4.02 X10^6/uL (4.0-5.2)
[2019-11-12 21:00] LABS: Alanine Aminotransferase 17 IU/L (<35); Albumin 4.1 g/dL (3.5-5.0); Albumin Globulin Ratio 1.4 (1.0-2.8); Alkaline Phosphatase 56 U/L (38-126); Aspartate Aminotransferase 31 IU/L (14-36); BUN Creatinine Ratio 21.4 (6-22); Blood Urea Nitrogen 15 mg/dL (7-17); Calcium 9.5 mg/dL (8.4-10.2); Carbon Dioxide 20 mmol/L (22-32); Chloride 108 mmol/L (98-107); Estimated Glomerular Filt Rate > 60.0 mL/min (>60); Globulin 2.9 g/dL (1.7-4.1); Glucose 164 mg/dL (80-110); HEMOLYSIS < 15 (0-50); Potassium 3.5 mmol/L (3.4-5.1); Sodium 140 mmol/L (137-145)
[2019-11-12 21:22] VITALS: BP 139/89; PULSE 69; RESP 16; O2SAT 100
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
[2019-11-12 21:30] VITALS: BP 154/73; PULSE 70; RESP 15; O2SAT 100
[2019-11-12 22:28] LABS: Magnesium 1.8 mg/dL (1.6-2.3)
[2019-11-12 22:37] VITALS: BMI 29.1
[2019-11-12 22:40] VITALS: BP 137/65; PULSE 73; RESP 17; TEMP 37.6; O2SAT 98
[2019-11-12 22:44] VITALS: BP 139/98; PULSE 69; RESP 20; O2SAT 100
[2019-11-12] MEDS: LACTATED RINGERS 1,000 ML 100 ML IV (22:53)
[2019-11-12] MEDS: KETOROLAC 15 MG/ML VIAL IV (22:53)
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
[2019-11-12 23:40] VITALS: BP 137/68; PULSE 78; RESP 19; TEMP 36.4; O2SAT 98
[2019-11-13] VITALS (15 sets, daily range): BP systolic 119–154; BP diastolic 51–82; PULSE 70–80; RESP 14–29; TEMP 36.2–37.7; O2SAT 94–100; BMI 29.1
--- NOTE | 2019-11-13 | DI.RAD.S_ITS ---
PROCEDURE: XR HIP W PEL IF DONE RT 2V INDICATIONS: ORIF, INTERMEDULLARY HIP SCREW RT TECHNIQUE: 2 intraoperative fluoroscopic spot views of the hip were acquired. COMPARISON: [facility], , XR HIP W PEL IF DONE RT 2V, 11/12/2019, 20:00. FINDINGS: Intraoperative fluoroscopic spot images demonstrate hardware in expected location in the right femur. No unexpected fractures. IMPRESSION: 1. Intraoperative fluoroscopy for ORIF right hip. Dictated by: Lyndsay Morales M.D. on 11/13/2019 at 23:15 Approved by: Lyndsay Morales M.D. on 11/13/2019 at 23:16
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
[2019-11-13 01:16] LABS: Bilirubin Urine UA NEGATIVE (NEGATIVE); Glucose Urine UA TRACE g/dL (Negative); Ketones Urine UA 3+ (NEGATIVE); Leukocyte Esterase Urine UA NEGATIVE (NEGATIVE); Nitrite Urine UA POSITIVE (Negative); Occult Blood Urine UA NEGATIVE (Negative); Protein Urine UA TRACE (Negative); Specific Gravity Urine UA 1.025 (1.000-1.035)
[2019-11-13 01:23] LABS: Appearance Urine UA Slightly Cloudy; Bacteria Urine Many (>30); Color Urine UA Dark Yellow; RBC Urine 0-1/HPF (0-5/HPF); Squamous Epithelial Cell Urine 1-5 /HPF (0-5/HPF); WBC Urine 1-5/HPF (0-5/HPF); pH Urine UA 5.5 (4.5-8.0)
[2019-11-13 01:24] LABS: Culture Indicated Urine Specimen Cultured; Mucus Urine 1+ (Negative)
[2019-11-13] MEDS: ACETAMINOPHEN 325 MG TABLET 975 MG PO ×2 (02:17→09:18)
--- NOTE | 2019-11-13 02:33 | PC.NURSE ---
Shift note: Received patient from evening shift. Patient AxOx3, able to make needs known, daughter at bedside to provide support and comfort. Assessment notable for right lower extremity chronic wound that is wrapped in coban, C/D/I, bruise to inner left wrist, moisture to abdominal fold with an old scar that is pink and raised, and dry skin to feet. Patient has chronic edema to bilat lower extremities that is 2+, HRR, VSS, on room air. Placed mcnair catheter for prolong immobilization and surgical procedure, urine sent to lab. Prior to placement patient had an incontinent void, patient has a pessary in place for prolapse and urinary incontinence. Patient is calm and cooperative with care but becomes tearful with turning with cares and makes statements about being done with this life, reassured patient with therapeutic communication. Patient is a high fall risk, bed alarm on and functioning, call light in reach and patient demonstrates use and understanding (as well as the daughter).
[2019-11-13] MEDS: KETOROLAC 15 MG/ML VIAL IV ×3 (04:06→22:33)
[2019-11-13 05:54] LABS: Add Manual Diff / Slide Review NO; Basophils Absolute Auto 0 /uL (0-100); Basophils Percent Auto 0.1 % (0-2); Eosinophils Absolute Auto 0 /uL (0-450); Hematocrit 29.3 % (36-46); Hemoglobin 10.3 g/dL (12.0-16.0); Lymphocytes Absolute Auto 700 /uL (1100-4500); Lymphocytes Percent Auto 9.6 % (25-40); Mean Corpuscular HGB Conc 35.2 % (30-36); Mean Corpuscular Hemoglobin 31.6 PG (26-34); Mean Corpuscular Volume 89.9 fL (80-100); Monocytes Absolute Auto 500 /uL (0-900); Monocytes Percent Auto 6.8 % (3-14); Neutrophils Absolute Auto 6500 /uL (1500-7000); Neutrophils Percent Auto 83.5 % (50-75); Platelet Count 115 X10^3/uL (150-400); Red Blood Cell Count 3.26 X10^6/uL (4.0-5.2); Red Cell Distribution Width 14.1 % (11.6-14.8); White Blood Cell Count 7.8 X10^3/uL (4.5-11.0)
[2019-11-13 06:19] LABS: BUN Creatinine Ratio 23.3 (6-22); Blood Urea Nitrogen 14 mg/dL (7-17); Calcium 8.9 mg/dL (8.4-10.2); Carbon Dioxide 24 mmol/L (22-32); Chloride 109 mmol/L (98-107); Estimated Glomerular Filt Rate > 60.0 mL/min (>60); Glucose 141 mg/dL (80-110); HEMOLYSIS < 15 (0-50); Potassium 3.7 mmol/L (3.4-5.1); Sodium 139 mmol/L (137-145)
--- NOTE | 2019-11-13 09:22 | P.CONS_ITS ---
History of Present Illness Consult details Date Patient Seen: 11/13/19 Time Patient Seen: 09:00 Chief complaint: Rt Hip Pain Reason for consult: Right proximal femur fracture no Narrative: 74-year-old female who tripped and fell yesterday landing on her right side. Patient had significant pain to the right leg and was unable to bear weight. Patient denies any loss of consciousness. Patient does state that she does suffer from vertigo and feels like that contributed to her fall. Normally is able to ambulate without any ambulatory devices. But does have a history of falls due to the vertigo. Meds Home Medications and Allergies Home Medications Medication Instructions Recorded Confirmed Type clonidine HCl 0.1 mg PO DAILY 02/15/19 11/12/19 History gkdtgfbrtvwm-Jn-kfio-minerals 2 tab PO DAILY 02/15/19 11/12/19 History cholecalciferol (vitamin D3) 125 5,000 unit PO DAILY 03/29/19 11/12/19 History mcg (5,000 unit) capsule tamoxifen 20 mg PO DAILY 03/29/19 11/12/19 History calcium 600 mg PO DAILY #90 tab 05/09/19 11/12/19 Rx citalopram 20 mg tablet 20 mg PO DAILY #30 tab 07/18/19 11/12/19 Rx Allergies Allergy/AdvReac Type Severity Reaction Status Date / Time butorphanol [From Stadol] Allergy Severe Anaphylaxis Verified 11/01/19 11:42 Opioids - Morphine Analogues Allergy Severe makes very Verified 11/01/19 11:42 sick for several days. aspirin [From Percodan] Allergy Intermediate nausea and Verified 11/01/19 11:42 vomitting codeine Allergy Intermediate nausea and Verified 11/01/19 11:42 vomitting morphine Allergy Intermediate nausea and Verified 11/01/19 11:42 vomitting oxycodone [From Percodan] Allergy Intermediate nausea and Verified 11/01/19 11:42 vomitting propoxyphene Allergy Intermediate swelling Verified 11/01/19 11:42 [From Darvocet-N] Review of Systems Review of Systems ROS: Yes All systems reviewed with the patient and are negative except as otherwise documented Exam Vital Signs (past 8 hours): - 11/13/19 05:45 11/13/19 08:00 Temperature 98.2 F 98.0 F Pulse Rate 80 70 Respiratory Rate 19 14 Blood Pressure 134/70 129/62 Pulse Oximetry 96 98 Oxygen Delivery Method Room Air Oxygen Flow Rate 0 Narrative Exam Narrative: On physical exam, patient is alert and oriented x3. Does not seem to be in any apparent distress. She is not having much pain at this point. On examination of bilateral lower extremities the right leg is shortened and rotated. Patient still has normal dorsiflexion and plantar flexion of the toes and ankle. Palpable pedal pulses. Patient does have a chronic wound to the right lower extremity that has been treated in the wound clinic. No sign of any infectious process. No purulent drainage or cellulitis. The left leg is free of any abnormalities. No sign of any injuries to bilateral upper extremities. Patient has normal range of motion to both arms with no pain or instability. Compartments are soft throughout. Objective Labs Result Diagrams: 11/13/19 05:30 11/13/19 05:30 Labs: Laboratory Results - last 24 hr 11/12/19 11/12/19 11/12/19 20:43 20:43 20:43 WBC 11.0 RBC 4.02 Hgb 12.5 Hct 36.1 MCV 89.8 MCH 31.2 MCHC 34.7 RDW 14.0 Plt Count 162 Neut % (Auto) 80.5 H Lymph % (Auto) 14.1 L [place] % (Auto) 4.8 Eos % (Auto) 0.2 L Baso % (Auto) 0.4 Neut # (Auto) 8800 H Lymph # (Auto) 1600 [place] # (Auto) 500 Eos # (Auto) 0 Baso # (Auto) 0 Sodium 140 Potassium 3.5 Chloride 108 H Carbon Dioxide 20 L BUN 15 Creatinine 0.70 Estimated GFR > 60.0 BUN/Creatinine Ratio 21.4 Glucose 164 H Calcium 9.5 Magnesium 1.8 Total Bilirubin 1.0 AST 31 ALT 17 Alkaline Phosphatase 56 Total Protein 7.0 Albumin 4.1 Globulin 2.9 Albumin/Globulin Ratio 1.4 Urine Color Urine Appearance Urine pH Ur Specific [place] Urine Protein Urine Glucose (UA) Urine Ketones Urine Occult Blood Urine Nitrate Urine Bilirubin Urine Urobilinogen Ur Leukocyte Esterase Urine RBC Urine WBC Ur Squamous Epith Cells Urine Bacteria Urine Mucus Ur Culture Indicated? 11/13/19 11/13/19 11/13/19 01:09 05:30 05:30 WBC 7.8 RBC 3.26 L Hgb 10.3 L Hct 29.3 L MCV 89.9 MCH 31.6 MCHC 35.2 RDW 14.1 Plt Count 115 L Neut % (Auto) 83.5 H Lymph % (Auto) 9.6 L [place] % (Auto) 6.8 Eos % (Auto) 0.0 L Baso % (Auto) 0.1 Neut # (Auto) 6500 Lymph # (Auto) 700 L [place] # (Auto) 500 Eos # (Auto) 0 Baso # (Auto) 0 Sodium 139 Potassium 3.7 Chloride 109 H Carbon Dioxide 24 BUN 14 Creatinine 0.60 Estimated GFR > 60.0 BUN/Creatinine Ratio 23.3 H Glucose 141 H Calcium 8.9 Magnesium Total Bilirubin AST ALT Alkaline Phosphatase Total Protein Albumin Globulin Albumin/Globulin Ratio Urine Color Dark yellow Urine Appearance Slightly cloudy Urine pH 5.5 Ur Specific [place] 1.025 Urine Protein Trace H Urine Glucose (UA) Trace H Urine Ketones 3+ H Urine Occult Blood Negative Urine Nitrate Positive Urine Bilirubin Negative Urine Urobilinogen 1.0 Ur Leukocyte Esterase Negative Urine RBC 0-1/hpf Urine WBC 1-5/hpf Ur Squamous Epith Cells 1-5 /hpf D Urine Bacteria Many (>30) H Urine Mucus 1+ H Ur Culture Indicated? Specimen cultured Assessment & Plan Assessment & Plan narrative: 74-year-old female with a right intertrochanteric proximal femur fracture. Due to this injury I would recommend surgical treatment to stabilize the fracture. I went over the risks and limitations associated with this procedure with the patient as well as her daughter who is her power of tax associate attorney. All of their questions and concerns were answered to their full satisfaction and consent form was freely obtained. They fully understand the potential risks associated with this procedure. Possibility of nonunion and malunion as well as the possible need for repeat surgery. Time Spent With Patient Time with patient: 15-24 minutes
[2019-11-13] MEDS: LACTATED RINGERS 1,000 ML 100 ML IV (09:33)
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
--- NOTE | 2019-11-13 13:10 | PC.NURSE ---
Addendum entered by Gumrao Sumner R.N. 11/13/19 15:23: UOP 175 CC'S FOR DAY SHIFT, CLOUDY LIGHT LEONARDA. REPORTED SAME TO DR. DIEGO. PATIENT HAS HAD IVF RUNNING ORDERED ALL SHIFT. NO NEW ORDERS AT THIS TIME. MD WILL SEE PATIENT. Original Note: DAY SHIFT NOTE: LATE ENTRY: SURGEON CALLED AT 0800, PATIENT MAY HAVE BREAKFAST AND THEN NPO AFTER BREAKFAST. SURGERY PLANNED FOR 1900. ORDERED BREAKFAST FOR PATIENT. DR. RAMON AND DR. DIEGO NOTIFIED OF H&H AND PLT COUNTS. NO NEW ORDERS R/T TO SAME. DR. RAMON GAVE VERBAL ORDER NOT TO GIVE AM DOSE OF HEPARIN SUBQ D/T SURGERY LATER TODAY. OKAY TO GIVE TORADOL ORDERED PER SURGEON. PATIENT RATES PAIN 2-3/10 AT REST. NO S/SX'S OF DISTRESS. CMS INTACT. BEDREST, ENCOURAGED SHIFTING WEIGHT TO HIPS FREQ TO PREVENT PRESSURE INJURY AND ASKING FOR ASSIST W/ SAME. TOLERATES SMALL CHANGES IN RE-POSITIONING. HAS BEEN NPO SINCE 0900.
--- NOTE | 2019-11-13 14:52 | PC.NURSE ---
Informed hospitalist of gram negative bacilli culture found in urine.
[2019-11-13] MEDS: LACTATED RINGERS 1,000 ML 42 ML IV (17:00)
--- NOTE | 2019-11-13 17:01 | PM.PN.1 ---
Subjective Subjective Date Patient Seen: 11/13/19 Interval history: Patient is a 74-year-old female who has a history of vertigo and fell suffering a right intertrochanteric fracture. She is scheduled for surgery this evening. The patient does report a history of incontinence. She states that at time she feels like she does not empty her bladder. She is chronically on amoxicillin for both her right lower extremity wound in addition to recurrent urinary tract infections which she has had many. She denies any burning with urination cloudy urine but is incontinent. She does have some pain in the right hip. She has no shortness of breath or chest pain today. Exam Vital Signs (past 8 hours): - 11/13/19 12:00 11/13/19 15:50 11/13/19 16:07 Temperature 98.2 F 98.4 F 97.1 F L Pulse Rate 75 77 79 Respiratory Rate 15 17 16 Blood Pressure 119/63 148/79 H 145/71 H Pulse Oximetry 98 100 100 Oxygen Delivery Method Room Air Oxygen Flow Rate 0 Narrative Exam Narrative: Pleasant elderly female resting comfortably in no obvious distress Lungs: Decreased breath sounds but clear to auscultation Cardiac exam: Regular rate and rhythm normal S1-S2 with a 2/6 systolic ejection murmur Abdomen: Soft nontender nondistended Extremities: Right leg with Unna boot in place, Objective Labs Result Diagrams: 11/13/19 05:30 11/13/19 05:30 Labs: Laboratory Results - last 24 hr 11/12/19 11/12/19 11/12/19 20:43 20:43 20:43 WBC 11.0 RBC 4.02 Hgb 12.5 Hct 36.1 MCV 89.8 MCH 31.2 MCHC 34.7 RDW 14.0 Plt Count 162 Neut % (Auto) 80.5 H Lymph % (Auto) 14.1 L [place] % (Auto) 4.8 Eos % (Auto) 0.2 L Baso % (Auto) 0.4 Neut # (Auto) 8800 H Lymph # (Auto) 1600 [place] # (Auto) 500 Eos # (Auto) 0 Baso # (Auto) 0 Sodium 140 Potassium 3.5 Chloride 108 H Carbon Dioxide 20 L BUN 15 Creatinine 0.70 Estimated GFR > 60.0 BUN/Creatinine Ratio 21.4 Glucose 164 H Calcium 9.5 Magnesium 1.8 Total Bilirubin 1.0 AST 31 ALT 17 Alkaline Phosphatase 56 Total Protein 7.0 Albumin 4.1 Globulin 2.9 Albumin/Globulin Ratio 1.4 Urine Color Urine Appearance Urine pH Ur Specific [place] Urine Protein Urine Glucose (UA) Urine Ketones Urine Occult Blood Urine Nitrate Urine Bilirubin Urine Urobilinogen Ur Leukocyte Esterase Urine RBC Urine WBC Ur Squamous Epith Cells Urine Bacteria Urine Mucus Ur Culture Indicated? 11/13/19 11/13/19 11/13/19 01:09 05:30 05:30 WBC 7.8 RBC 3.26 L Hgb 10.3 L Hct 29.3 L MCV 89.9 MCH 31.6 MCHC 35.2 RDW 14.1 Plt Count 115 L Neut % (Auto) 83.5 H Lymph % (Auto) 9.6 L [place] % (Auto) 6.8 Eos % (Auto) 0.0 L Baso % (Auto) 0.1 Neut # (Auto) 6500 Lymph # (Auto) 700 L [place] # (Auto) 500 Eos # (Auto) 0 Baso # (Auto) 0 Sodium 139 Potassium 3.7 Chloride 109 H Carbon Dioxide 24 BUN 14 Creatinine 0.60 Estimated GFR > 60.0 BUN/Creatinine Ratio 23.3 H Glucose 141 H Calcium 8.9 Magnesium Total Bilirubin AST ALT Alkaline Phosphatase Total Protein Albumin Globulin Albumin/Globulin Ratio Urine Color Dark yellow Urine Appearance Slightly cloudy Urine pH 5.5 Ur Specific [place] 1.025 Urine Protein Trace H Urine Glucose (UA) Trace H Urine Ketones 3+ H Urine Occult Blood Negative Urine Nitrate Positive Urine Bilirubin Negative Urine Urobilinogen 1.0 Ur Leukocyte Esterase Negative Urine RBC 0-1/hpf Urine WBC 1-5/hpf Ur Squamous Epith Cells 1-5 /hpf D Urine Bacteria Many (>30) H Urine Mucus 1+ H Ur Culture Indicated? Specimen cultured Assessment & Plan Assessment & Plan narrative: Impression 1. Right intertrochanteric fracture -patient with a known history of vertigo which is a risk factor. She also has underlying osteoporosis. -patient is scheduled for definitive surgery this evening 2. Positive UA, with frequent urinary tract infections, -suspect the patient is chronically colonized -do not believe she has an active urinary tract infection. -however is the patient will be going to surgery for hip surgery she is on Ancef as her preoperative antibiotics -will review final urine culture and consider treating her for 5 days postoperatively 3. Right lower extremity wound, chronic -continue Unna boot for now 4. Depression -continue citalopram 5. History of breast cancer -resume tamoxifen postoperatively 6. Hypertension -continue clonidine 7. Osteoporosis -resume vitamin-D, calcium when appropriate. -may defer in the immediate postoperative setting but resume within 2 weeks postoperative ,
--- NOTE | 2019-11-13 17:34 | SUR.HOLD ---
Patient c/o pain, offered tylenol but patient declined.
--- NOTE | 2019-11-13 18:09 | PM.PREOP ---
Pre-operative Note Interval Note History & Physical reviewed/Exam performed by Physician: Yes Changes to H&P: No
[2019-11-13] MEDS: CEFAZOLIN 2 GM/100 ML FROZ.PIGGY IV ×2 (19:20→22:30)
[2019-11-13] MEDS: ACETAMINOPHEN IV 1,000 MG/100 ML VIAL 400 MG IV (19:45)
--- NOTE | 2019-11-13 19:57 | SUR.OPER ---
Supine on padded Redfield table with bilateral legs secured in padded positioning boots and suspended in positioning spars, operative leg in traction per surgeon. Head on one pillow. Arms crossed over chest over each other and padded with foam arm pads from Redfield Table pack, then secured with tape over sheet. Padded perineal post in place per surgeon.
[2019-11-13] MEDS: BUPIVACAINE 0.25% W/ EPI 30 ML VIAL INJ (20:04)
--- NOTE | 2019-11-13 21:17 | PM.OP.1 ---
Operative Date/Time/Diagnoses Date of procedure: 11/13/19 Time of procedure: 20:00 Pre-op diagnosis: Right proximal femur fracture Post-op diagnosis: same Procedure & Clinicians Procedure: Intramedullary nailing of right proximal femur fracture Same procedure as scheduled: Yes Indications: Right displaced intertrochanteric femur fracture Surgeon: Kevin Duvall Click Yes if Unassisted: Yes Anesthesia Type: General Operative Notes Findings: Displaced intertrochanteric femur fracture Closure Type: primary Specimen(s): none sent Applied: implant(s) (10 mm x 18 cm Tri Gen nail 100 mm lag screw 30 mm compression screw 5 mm x 30 mm locking screw) Estimated Blood Loss (mL): 250 Blood products transfused: none Procedure in detail: On date of service patient was met in the holding area where his operative site was signed and witnessed by the OR staff. Surgery was once again discussed with the patient in remaining questions or concerns he had were answered fully. Patient was taken back to the operating theater. Spinal anesthesia was administered and then patient was transferred to the fracture table. Great care was taken to ensure that all bony prominences were appropriately padded. Both legs were placed into traction boots but only the right leg was placed under distraction and internal rotation in order to reduce the fracture. C-arm was brought in to verify reduction the fracture. Once we were satisfied with overall reduction, the right leg was prepped and draped in the normal sterile fashion. Ten blade was used to incise through skin and fascial tissue. Deep knife was then used to incise through the ITB band. Guidewire was placed on the greater tuberosity and entered in to the canal. This was verified with C-arm. Entry Reamer was used to ream the entry hole. A 10 mm nail was placed. The depth of the nail was verified under C-arm. Once we are satisfied with the depth a guidewire was placed into the femoral head and its position was verified with AP and lateral views. This was measured and then drilled. Patient measured 100 mm. Next, 100 mm screw was placed into the femoral head and this was verified in the lateral and AP views with the C-arm. A lag screw was placed as well for additional compression. Once we are satisfied with the 2 screws into the proximal femur the distal screw was placed in the static hole. C-arm was used to verify positioning while this was drilled and a 30 mm screw was used to lock the nail distally. A proximal locking screw was placed locking the proximal screw into position. Final x-rays were obtained. The 3 separate wound was copiously irrigated and then closed in a layered fashion. Patient's leg was cleaned, dried, and dressed. Patient was taken off the fracture table transferred to a stretcher and taken to the PACU in stable condition. Complications: none Post-operative Condition: stable Disposition: PACU Plan for aftercare: Patient can be weight-bearing as tolerated
--- NOTE | 2019-11-13 21:32 | SUR.PHASEI ---
Patient shaking, sylvia damon applied. States I don't know when asked if she has pain. VS stable. Opens eyes when asked, did not look at RN when asked.
[2019-11-13] MEDS: LORazepam 2 MG/ML INJ 0.25 MG IV (21:40)
--- NOTE | 2019-11-13 21:53 | SUR.PHASEI ---
Report called to Demetri
[2019-11-13] MEDS: LACTATED RINGERS 1,000 ML 125 ML IV (22:12)
--- NOTE | 2019-11-13 22:12 | SUR.PHASEI ---
Patient's shivering improved. Patient declined pain medication. Patient transferred to the floor, upper and lower dentures in place. IV saline locked. Dressing CDI. VS stable. Report given to Demetri. Daughter present.
--- NOTE | 2019-11-13 22:27 | PC.NURSE ---
BACK FROM SURGERY,ROOM AIR BREATH SOUNDS CLEAR,SATS 100%,HERNÁNDEZ PATENT,FOOT SCDS IN PLACE,IV FLUIDS INFUSING,TELE IN PLACE ICU AWARE,DRSG TO RIGHT HIP BULK,CLEAN DRY.DRSG TO RIGHT LOWER LEG CDI,NOT REMOVED
[2019-11-14] VITALS (8 sets, daily range): BP systolic 105–158; BP diastolic 48–93; PULSE 66–99; RESP 15–19; TEMP 36.7–37.6; O2SAT 98–100
[2019-11-14] MEDS: LACTATED RINGERS 1,000 ML 125 ML IV ×2 (01:55→13:15)
--- NOTE | 2019-11-14 02:09 | PC.NURSE ---
Shift note: Received patient from evening shift. Patient is AxOx2, alert to self and situation but having mild confusion at time of assessment. Assessment notable for elevated temp (99.5) and hypertension, periorbital edema bilateral with right > left, right has tearing associated as well with erythema to lids. Patient more disoriented tonight than last night, is known to be very sensitive to pain medications and anesthesia. Daughter reports patient has episodes of not making sense and will report concerns to staff. This RN has not witness confusion directly until later in the shift, daughter used call light to alert staff to confusion and wanted reassessment of patient's mental status. Patient was more confused that at the start of shift, requesting eye drops from the bathroom and asked this RN How did you get here? Reoriented patient to recent hx of fall, hip fracture, and surgery and after several attempts was successfully reoriented. 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 Educated daughter about the effects of anesthesia and that it could take time to clear, both daughter and patient acknowledged teaching and feel comfortable with explanation. 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 Will continue to monitor and reorient as necessary.
[2019-11-14] MEDS: KETOROLAC 15 MG/ML VIAL IV ×4 (02:52→21:30)
[2019-11-14] MEDS: CEFAZOLIN 2 GM/100 ML FROZ.PIGGY IV (05:13)
[2019-11-14 05:44] LABS: Hematocrit 24.3 % (36-46); Hemoglobin 8.5 g/dL (12.0-16.0); Mean Corpuscular HGB Conc 34.9 % (30-36); Mean Corpuscular Hemoglobin 31.5 PG (26-34); Mean Corpuscular Volume 90.3 fL (80-100); Platelet Count 103 X10^3/uL (150-400); Red Cell Distribution Width 13.7 % (11.6-14.8); White Blood Cell Count 6.8 X10^3/uL (4.5-11.0)
[2019-11-14] MEDS: cloNIDine 0.1 MG TABLET PO (09:38)
[2019-11-14] MEDS: CITALOPRAM 20 MG TABLET PO (09:38)
[2019-11-14] MEDS: ENOXAPARIN 40 MG/0.4 ML SYRINGE SUBCUT (09:38)
[2019-11-14] MEDS: ACETAMINOPHEN 325 MG TABLET 975 MG PO ×3 (09:38→21:25)
[2019-11-14] MEDS: DOCUSATE 100 MG CAPSULE PO ×2 (09:38→21:27)
[2019-11-14] MEDS: TAMOXIFEN 10 MG TABLET 20 MG PO (09:39)
[2019-11-14] MEDS: CALCIUM CARBONATE 600 MG TABLET PO (09:39)
[2019-11-14] MEDS: CHOLECALCIFEROL (VITAMIN D3) 5,000 UNIT TABLET 5000 UNIT PO (09:39)
--- NOTE | 2019-11-14 10:21 | PM.PNPO.1 ---
Subjective Subjective Date Patient Seen: 11/14/19 Time Patient Seen: 10:21 Interval history: Pain is moderate to severe. Denies fever chills. No nausea / vomiting. Her daughter is present this morning. Exam Vital Signs (past 8 hours): - 11/14/19 05:00 11/14/19 09:10 Temperature 98.5 F 98.4 F Pulse Rate 81 81 Respiratory Rate 16 18 Blood Pressure 140/83 121/54 L Pulse Oximetry 98 99 Oxygen Delivery Method Room Air Oxygen Flow Rate 0 Narrative Exam Narrative: Pleasant 74-year-old female resting comfortably in bed in no apparent distress. Right hip dressing is clean, dry and intact. Motor functions intact distal right lower extremity. Sensation grossly intact to light touch. Objective Labs Result Diagrams: 11/14/19 05:20 11/13/19 05:30 Labs: Laboratory Results - last 24 hr 11/14/19 05:20 WBC 6.8 RBC 2.70 L Hgb 8.5 L Hct 24.3 L MCV 90.3 MCH 31.5 MCHC 34.9 RDW 13.7 Plt Count 103 L Assessment & Plan Post-op Postoperative Procedures: Procedures Operation Date: 11/13/19 19:00 Actual Procedures Side Surgeon p ORIF Hip/Intramedullary Hip Screw Right Kevin Duvall MD Postop day 1 status post intramedullary nailing of right proximal femur fracture. Patient can be weight-bearing as tolerated. Mobilize with physical therapy. Possible discharge in next 1-2 days.
[2019-11-14] MEDS: MULTIVIT,CALC,MINS/IRON/FOLIC 1 TABLET 1 TAB PO (10:52)
[2019-11-14] MEDS: MEROPENEM 1 GM/50 ML PIGGYBACK IV ×2 (10:53→17:40)
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
--- NOTE | 2019-11-14 13:42 | CM.DPC ---
DCP SNF Planning: Per MD, pt's urine came back positive for ERBL and pt will require 7 days of IV-Abx and abx can be flexible depending on what is covered at SNF. Per PT/OT, pt requiring at least 2PA and lift currently and will need SNF prior to home. DENA met bedside with pt and explained role and pt confirms she was very hopeful for home with HH but is now aware that she will need SNF at d/c. SW provided pt with the SNF Choice List with the compare SNF website and pt states she likely will want to stay in [place] but would like to discuss further with her Dtr Rossana and is agreeable with SW calling Rossana to update on her Medicare coverage of SNF and discussed local SNF options. DENA called Dtr Rossana [phone] and discussed above and Dtr strongly feels SNF needed at d/ and Dtr lives in [place] but would prefer likely [facility] at d/ and SW provided the SNF compare website and encouraged her to tour tomorrow prior to visiting pt. Dtr agreeable with referral to [facility] and will confirm tomorrow when she is bedside that [facility] is the preference. DENA called [facility] and left msg with admissions requesting review for new referral. PASRR completed in anticipation of SNF at d/c. Plan: DENA to follow for [facility] review of pt and confirmation from Dtr and pt tomorrow that [facility] still the preference. Deepti Clark, BENCH TECHNICIAN
--- NOTE | 2019-11-14 14:45 | PT.IPTN ---
Current Diagnoses Age-related osteoporosis with current pathological fracture, right femur, initial encounter for fracture (11/12/19) Surgery Performed Operation Date: 11/13/19 19:00 Actual Procedures p ORIF Hip/Intramedullary Hip Screw(Right) - Kevin Duvall MD Physical Therapy Treatment Note M2 PT-IP Current Condition Start: 11/14/19 12:22 Freq: NEEDED Status: Active Protocol: Document 11/14/19 11:00 AB (Rec: 11/14/19 12:34 AB [id number]) Physical Therapy Current Condition Current Condition Evaluation Date 11/14/19 Treatment Diagnosis R closed intertrochanteric fx s/p IM nailing; difficulty in walking Onset Date 11/12/2019 Weight Bearing Status Weight Bearing Status Weight Bear as Tolerated Allowed Weight Bearing Amount (enter % RLE WBAT or #) (%) M3 PT-IP Subjective Start: 11/14/19 12:22 Freq: NEEDED Status: Active Protocol: Document 11/14/19 13:45 SP (Rec: 11/14/19 15:13 SP [email or web address]) Subjective Physical Therapy Visit Type Type Treatment Note Visit Start Time 13:45 Visit Stop Time 14:45 Total Visit Minutes 60 Number of MANAGER ADVANCED Visits 1 Physical Therapy Visit Comments Patient Comments pt agreeable to PT. Therapy Pain Assessment Pain When Pain Assessed At Rest Pain Present Pain Present Pain Reported Location Bilateral Eye Intensity 5 Scale Used 5/10 at rest, 7/10 with mobility Pain Behaviors Calling Out,Facial Grimacing, Moaning Pain Management Techniques Modification of Treatment,Re- positioning M4 PT-IP Mobility and Gait Start: 11/14/19 12:22 Freq: NEEDED Status: Active Protocol: Document 11/14/19 13:45 SP (Rec: 11/14/19 15:13 SP [email or web address]) PT-Bed Mobility Assessment Sit to Supine Sit to Supine Minimal Assistance,Maximum Assistance,2 Person Assistance Scooting Scooting Up and Down in Bed Moderate Assistance PT-Transfer Assessment Sit to and From Stand Sit to and from Stand Maximum Assistance,2 Person Assistance,Use of Upper Extremities Equipment Transfer Assistive Device Gait Belt,Front Wheeled Walker Orthotic/Prosthetic Devices or Brace: No Transfers Transfer Destination Bed Transfer Technique Stand Step Pivot Transfer Ability Level of Assist Moderate Assistance,Maximum Assistance,2 Person Assistance ,Use of Upper Extremities Comments Mobility Comments Pt was sitting in chair when arrived. Reviewed post op exercises see comments below AAROM RLE, AROM LLE. Completed scooting foward to EOchair initially herself then needed Mod A of 1 with cuing for trunk foward posture. Sit to stand Max A of 2 person (MANAGER ADVANCED, human resources benefits assistant) with cuing for proper hand placement to push from chair to standing then transitioning to FWW and upright standing posture reminders between BLE. Pt was able to pivot scoot BLE chair to bed Mod-Max A of 2 person with Max cuing and contact feedback to complete sequencing BLE repositioning and support for FWW repositioning to left and backing up to bed. Max A with cuign for slow descent to bed and contact reminders to reach back for self support. Sitting to supine Min A of 1 for trunk guidence and Max A of BLE intobed then Mod A to lateral scoot with cuign for LLE bridging for self independence. Pt was laying in bed with all needs and call light inreach when left. Place pillows under BLE positioned to keep RLE neutral alignment to prevent hip IR. Nurse in room during transfer giving verbal encouragement. Gait Assessment Gait Gait Assistance Required: Moderate Assistance,2 Person Assist Distance (Feet) 5 Able to Maintain Weight Bearing Status Yes During Gait Assistive Devices Assistive Device Gait Belt,Front Wheeled Walker Orthotic/Prosthetic Devices or Brace: No Gait Deviations General Gait Pattern Antalgic,Decreased Stride Length,Decreased Feet Clearance,Flexed Trunk,Narrow Based Gait Factors Limiting Gait Function Factors Limiting Gait Function Decreased Activity Tolerance, Decreased Strength,Difficulty Following Directions, Incoordination,Limited Range of Motion,Pain,Poor Balance, Poor Safety Awareness Comments Gait Comments Pt was able to pivot scoot each LE with max cuing for sequencing BLE usign FWW Mod A of 2 person and encouragement can put weight through RLE and BUE on FWW. Therapist provided most of FWW repositioning support for completion. Pt required increased time to complete safety. Stair Climbing Assessment Comments Stair Climbing Comments not assessed PT-Balance Assessment Sitting Balance and Reactions Static Sitting Balance Ability Good Dynamic Sitting Balance Ability Fair Standing Balance and Reactions Static Standing Balance Ability Poor Dynamic Standing Balance Ability Poor Device Used FWW M5 PT-IP Objective Assessments Start: 11/14/19 12:22 Freq: NEEDED Status: Active Protocol: Document 11/14/19 11:00 AB (Rec: 11/14/19 12:34 AB [id number]) Orientation Orientation/Cognition Level of Alertness Alert Orientation Name,Place,Situation Language Function Ability Hard of Hearing Safety Awareness Decreased Safety Awareness Gross Range of Motion Lower Extremity ROM Assessment Right Impaired Impairments increase RLE guarding limiting hip and knee flexion Strength Lower Extremity Strength Assessment Bilaterally Impaired Comments Strength Comments LLE: 4-/5 RLE: 3-/5 Sensation Assessment Sensation Gross Sensation WNL Muscle Tone Muscle Tone WNL Yes M6 PT-IP Treatment Start: 11/14/19 12:22 Freq: NEEDED Status: Active Protocol: Document 11/14/19 13:45 SP (Rec: 11/14/19 15:13 SP [email or web address]) Physical Therapy Treatment Exercises Exercises Ankle Pumps,Gluteal Sets,Quad Sets,Heel Slides,Seated Knee Flexion/Extension Education Education Provided Precautions,Weight Bearing Status,Post-Op Packet,Safety Other Treatments Other Treatment Performed AAROM RLE heel slide and ER R hip for awareness of not allowing IR recline in chair, AROM LAQ RLE and ankle pumps. M7 PT-IP Assessment and Plan Start: 11/14/19 12:22 Freq: NEEDED Status: Active Protocol: Document 11/14/19 13:45 SP (Rec: 11/14/19 15:13 SP [email or web address]) PT Summary Assessment and Plan Potential Rehabilitation Potential Fair Status of Condition at Evaluation Evolving Summary Impairments Pain,ROM,Strength,Balance, Coordination,Sensation,Tone, Cognition,Bed Mobility, Transfers,Gait,Activity Tolerance Assessment Summary pt requiring Mod - max A x 2 with all mobilities, was able BLE scoot chair to bed with max cuing for sequencing and support for FWW repositioning . pt will require SNF rehab to improve strength and functional mobility. See further comments. Goals Bed Mobility Goal Contact Guard Assistance Transfer Goal Contact Guard Assistance,Front Wheeled Walker Gait Goal Contact Guard Assistance,Front Wheel Walker Gait Distance 100 Days to Meet Goals 10 Frequency of Treatment Frequency Of Treatment Twice a Day Treatment Plan Physical Therapy Treatment Plan Bed Mobility Training,Transfer Training,Gait Training, Therapeutic Exercise,Balance Retraining,Post Op Education, Discharge Planning,Hot or Cold Pack,Neuromuscular Re-ed, Coordination Retraining,Manual Therapy Recommendations To Nursing Amount of Assist Needed 2 Person Assist Discharge Recommendations PT Discharge Recommendations SNF Rehab Transportation Needs at Discharge Wheelchair/Cabulance
[2019-11-14 14:55] LABS: Hematocrit 23.1 % (36-46)
--- NOTE | 2019-11-14 15:09 | PC.NURSE ---
Pt worked with physical therapy today, she is a 2 person assist when getting up to chair and back to bed. Dressing to R.hip is bulky but cdi. Given tylenol and toradol for pain. She is back to bed and napping now.
--- NOTE | 2019-11-14 18:18 | P.PN_ITS ---
Subjective Subjective Date Patient Seen: 11/14/19 Time Patient Seen: 11:45 Interval history: Ms. Jennyfer Hinds is a 74-year-old female patient with a history of hypertension, lymphedema, chronic right lower extremity wound, breast cancer, vertigo, depression and hallucinations and osteoporosis who presented to the ER after a fall. She fell suffering a right intertrochanteric fracture. She underwent operative fixation yesterday and she is seen for follow-up today. Her urine culture did grow an ESBL organism and she will require IV carbapenem for 7 days. This does not necessarily need to be done here but can be completed in a [place] [facility] facility. The patient has been refusing opiate pain medications instead electing for Tylenol and Motrin. She complains of right hip pain today but is not interested in further her pain medications. She was seen prior to physical therapy evaluating her. She denies any fevers or chills, she had has had some nausea but no vomiting. She denies any current dysuria or abdominal pain. Exam Vital Signs (past 8 hours): - 11/14/19 11:37 11/14/19 16:06 Temperature 98.0 F 98.3 F Pulse Rate 99 H 67 Respiratory Rate 18 15 Blood Pressure 125/65 105/49 L Pulse Oximetry 98 100 Oxygen Delivery Method Room Air Oxygen Flow Rate 0 Narrative Exam Narrative: GENERAL APPEARANCE: Well developed, well nourished, elderly female in no acute distress. SKIN: Inspection of the skin reveals no rashes, ulcerations or petechiae. HEENT: The sclerae were anicteric and conjunctivae were pink and moist. Extraocular movements were intact and pupils were equal, round with normal accommodation. External inspection of the ears and nose showed no scars, lesions, or masses. Lips, teeth, and gums showed normal mucosa. The oral mucosa, hard and soft palate, tongue and posterior pharynx were unremarkable. NECK: Supple and symmetric. There was no thyroid enlargement, and no tenderness, or masses were felt. CHEST: Normal AP diameter and normal contour without any kyphoscoliosis. LUNGS: Auscultation of the lungs revealed no wheezes, rhonchi, or rales. CARDIOVASCULAR: There was a regular rate and rhythm with a 3 of 6 systolic murmur. ABDOMEN: Soft and nontender with normal bowel sounds. No ascites was noted. MUSCULOSKELETAL: There was no effusions noted, patient with appropriate right hip pain. Muscle tone was normal. EXTREMITIES: No cyanosis, clubbing or edema. NEUROLOGIC: Alert and oriented x 3. Normal affect. Objective Labs Result Diagrams: 11/14/19 14:24 11/13/19 05:30 Labs: Laboratory Results - last 24 hr 11/14/19 11/14/19 05:20 14:24 WBC 6.8 RBC 2.70 L Hgb 8.5 L 8.0 L Hct 24.3 L 23.1 L MCV 90.3 MCH 31.5 MCHC 34.9 RDW 13.7 Plt Count 103 L Assessment & Plan Assessment & Plan narrative: 1. Right intertrochanteric fracture, present on admission, likely pathologic -patient with a known history of vertigo which is a risk factor. She also has underlying osteoporosis. -patient is status post definitive surgery on November 13, 2019. -continue physical and occupational therapy 2. 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 However given the presence of ESBL and no prior treatment she will require definitive treatment of ESBL organism with 7 days of a carbapenem and 3. Right lower extremity wound, chronic -unable to further specify. Patient is in an unna boot and I am further to specify this at this time based upon my evaluation. -continue Unna boot for now 4. Depression -continue citalopram 5. History of breast cancer -resume tamoxifen postoperatively 6. Hypertension -continue clonidine 7. Osteoporosis -resume vitamin-D, calcium when appropriate. -may defer in the immediate postoperative setting but resume within 2 weeks postoperative 8. Acute blood loss anemia, -likely secondary to operative interventions. Will continue to follow hemoglobin. Dispo: Pending SNF placement once medically stable, anticipate medically ready in the next 1-2 days. She will require 7 total days of a carbapenem, with today being day 1/7
[2019-11-15] VITALS (8 sets, daily range): BP systolic 108–136; BP diastolic 49–67; PULSE 62–76; RESP 16–20; TEMP 36.2–37.1; O2SAT 98–100
[2019-11-15] MEDS: LACTATED RINGERS 1,000 ML 125 ML IV (02:37)
[2019-11-15] MEDS: MEROPENEM 1 GM/50 ML PIGGYBACK IV ×3 (02:38→17:41)
[2019-11-15] MEDS: KETOROLAC 15 MG/ML VIAL IV ×4 (02:56→20:43)
--- NOTE | 2019-11-15 05:18 | PC.NURSE ---
Addendum entered by Joelle Watson R.N. 11/15/19 05:26: On contact isolation for ESBL in urine Original Note: Patient seen and assessed at 0300. Is alert and oriented except thought month was October. Breath sounds CTA with RA sat of 99%. HRR. Denies nausea. BT present and is passing flatus; reports she was incontinent of stool on previous shift. Indwelling catheter is patent. Is able to move self but reluctant to do so; wants to lie on back most of time. Was agreeable to turning slightly onto left side with pillow placed for support. Dressing to right hip is CDI. CMS intact. Does have edema present in right forefoot and left LE. Unna boot to right LE CDI (chronic skin ulcer). Refusing to wear SCD's. Denies any pain except for some intermittent pain in right foot; medicated with scheduled Toradol. Fall risk score is high and bed alarm is activated.
[2019-11-15 06:09] LABS: Mean Corpuscular Volume 91.1 fL (80-100)
[2019-11-15 06:13] LABS: BUN Creatinine Ratio 18.3 (6-22); Blood Urea Nitrogen 11 mg/dL (7-17); Calcium 7.9 mg/dL (8.4-10.2); Carbon Dioxide 26 mmol/L (22-32); Chloride 108 mmol/L (98-107); Estimated Glomerular Filt Rate > 60.0 mL/min (>60); Glucose 100 mg/dL (80-110); HEMOLYSIS < 15 (0-50); Potassium 3.3 mmol/L (3.4-5.1); Sodium 138 mmol/L (137-145)
[2019-11-15 06:14] LABS: Add Manual Diff / Slide Review NO; Basophils Absolute Auto 0 /uL (0-100); Basophils Percent Auto 0.2 % (0-2); Eosinophils Absolute Auto 100 /uL (0-450); Eosinophils Percent Auto 1.7 % (2-4); Lymphocytes Absolute Auto 2000 /uL (1100-4500); Lymphocytes Percent Auto 30.3 % (25-40); Mean Corpuscular Hemoglobin 31.9 PG (26-34); Monocytes Absolute Auto 500 /uL (0-900); Monocytes Percent Auto 8.2 % (3-14); Neutrophils Absolute Auto 3900 /uL (1500-7000); Neutrophils Percent Auto 59.6 % (50-75); Red Cell Distribution Width 14.2 % (11.6-14.8); White Blood Cell Count 6.6 X10^3/uL (4.5-11.0)
[2019-11-15 06:26] LABS: Platelet Count 81 X10^3/uL (150-400)
--- NOTE | 2019-11-15 08:36 | PM.PNPO.1 ---
Subjective Subjective Date Patient Seen: 11/15/19 Time Patient Seen: 08:36 Interval history: Right hip pain is severe. Denies nausea vomiting. No fever chills. No shortness of breath or chest pain. Exam Vital Signs (past 8 hours): - 11/15/19 05:45 Temperature 98.3 F Pulse Rate 71 Respiratory Rate 17 Blood Pressure 108/67 Pulse Oximetry 99 Oxygen Delivery Method Room Air Oxygen Flow Rate 0 Narrative Exam Narrative: 74-year-old female resting comfortably in bed in no apparent distress. Right hip dressing is clean, dry and intact. Right leg is warm and dry. Motor functions intact to the distal right lower extremity. Sensation grossly intact to light touch. Objective Labs Result Diagrams: 11/15/19 05:42 11/15/19 05:42 Labs: Laboratory Results - last 24 hr 11/14/19 11/15/19 11/15/19 14:24 05:42 05:42 WBC 6.6 RBC 2.20 L Hgb 8.0 L 7.0 L Hct 23.1 L 20.0 L* MCV 91.1 MCH 31.9 MCHC 35.0 RDW 14.2 Plt Count 81 L Neut % (Auto) 59.6 Lymph % (Auto) 30.3 [place] % (Auto) 8.2 Eos % (Auto) 1.7 L Baso % (Auto) 0.2 Neut # (Auto) 3900 Lymph # (Auto) 2000 [place] # (Auto) 500 Eos # (Auto) 100 Baso # (Auto) 0 Sodium 138 Potassium 3.3 L Chloride 108 H Carbon Dioxide 26 BUN 11 Creatinine 0.60 Estimated GFR > 60.0 BUN/Creatinine Ratio 18.3 Glucose 100 Calcium 7.9 L Assessment & Plan Post-op Postoperative Procedures: Procedures Operation Date: 11/13/19 19:00 Actual Procedures Side Surgeon p ORIF Hip/Intramedullary Hip Screw Right Kevin Duvall MD Postop day 2 status post intramedullary nailing of right proximal femur fracture. Patient has acute blood loss anemia likely secondary to surgery. Order 2 units packed red blood cells. Patient can be weight-bearing as tolerated the right lower extremity. Patient was 2 person assist yesterday with physical therapy and they have recommended [facility] facility for further rehab. Patient also has urinary tract infection with ESBL E coli and will need definitive treatment with 7 days of carbapenem. Appreciate hospitalist assistance in managing other medical issues. Discharge when medically stable per hospitalist.
[2019-11-15] MEDS: ACETAMINOPHEN 325 MG TABLET 975 MG PO ×3 (09:03→20:41)
[2019-11-15] MEDS: CITALOPRAM 20 MG TABLET PO (09:04)
[2019-11-15] MEDS: DOCUSATE 100 MG CAPSULE PO (09:04)
[2019-11-15] MEDS: cloNIDine 0.1 MG TABLET PO (09:04)
[2019-11-15] MEDS: CALCIUM CARBONATE 600 MG TABLET PO (09:05)
[2019-11-15] MEDS: MULTIVIT,CALC,MINS/IRON/FOLIC 1 TABLET 1 TAB PO (09:05)
[2019-11-15] MEDS: CHOLECALCIFEROL (VITAMIN D3) 5,000 UNIT TABLET 5000 UNIT PO (09:05)
[2019-11-15] MEDS: TAMOXIFEN 10 MG TABLET 20 MG PO (09:05)
[2019-11-15 09:31] LABS: Lactate Dehydrogenase 336 U/L (313-618)
[2019-11-15 09:36] LABS: Reticulocyte Count, Percent 4.6 % (1.06-2.63)
--- NOTE | 2019-11-15 09:37 | DI.CT.S_ITS ---
PROCEDURE: CT LE RT WO CON INDICATIONS: S/p R hip sx, eval for bleeding. Decreasing hematocrit. TECHNIQUE: Noncontrast 3 mm axial sections acquired of the right femur from the hip joint to the distal diametaphyseal region, with coronal and sagittal reformats. COMPARISON: None. FINDINGS: Image quality: Excellent. Bones: Expected appearance immediately post ORIF of subtrochanteric fracture. No evidence of hardware failure or loosening. There is near overall anatomic alignment. Soft tissues: Expected immediate postoperative appearance. There is postoperative air present in the vastus lateralis muscle along the femoral shaft. There is mild associated intramuscular hematoma, expected in the immediate postoperative state. There is a small amount of subcutaneous air as well. Small, expected subcutaneous hematoma laterally deep to the skin ale[place]ander. No acute findings in the pelvis. IMPRESSION: 1. Expected immediate postoperative appearance, status post ORIF of a trochanter fracture the hip. Mild associated vastus lateralis hematoma and minimal subcutaneous hematoma. Dictated by: Christo Hughes M.D. on 11/15/2019 at 11:50 Approved by: Christo Hughes M.D. on 11/15/2019 at 11:54
[2019-11-15] MEDS: TRAMADOL 50 MG TABLET PO ×2 (09:43→20:42)
--- NOTE | 2019-11-15 09:57 | DI.CT.S_ITS ---
PROCEDURE: CT ABDOMEN PELVIS WO CON INDICATIONS: s/p R hip surgery, dropping Hg, eval for bleeding/hematoma TECHNIQUE: Noncontrast 5 mm thick sections acquired from the diaphragms to the symphysis. 5 mm coronal and sagittal reformats were then performed. For radiation dose reduction, the following was used: automated exposure control, adjustment of mA and/or kV according to patient size. COMPARISON: [facility], CR, XR HIP W PEL IF DONE RT 2V, 11/12/2019, 20:00. [facility], CR, XR HIP W PEL IF DONE RT 2V, 11/13/2019, 21:20. FINDINGS: Image quality: Excellent. ABDOMEN: Lung bases: Lung bases are clear. Heart size is normal. Solid organs: Liver is normal in size. Gallbladder contains multiple small layering gallstones.. Pancreas is normal in contours. Spleen is normal in size. No adrenal nodules. Kidneys are normal in size, without hydronephrosis or nephrolithiasis. Peritoneum and bowel: Unenhanced bowel loops demonstrate normal wall thickness and caliber. No free fluid or air. Large amount of fecal debris in the sigmoid colon and rectum. Sigmoid diverticulosis without evidence of diverticulitis. Nodes and vessels: No retroperitoneal or mesenteric adenopathy by size criteria. Aorta and inferior vena cava are normal in caliber. Miscellaneous: No ventral hernias. PELVIS: Genitourinary: Bladder is decompressed by a Waldron catheter. Miscellaneous: No inguinal hernias or adenopathy. Remote hysterectomy. Pessary in place. Mild right gluteus muscle hematoma, expected given the immediate postoperative status. Soft tissue gas in the right lateral subcutaneous tissues and right gluteus. Bones: No suspicious bony lesions. Gamma nail fixing a right trochanteric fracture. No vertebral body compression fractures. IMPRESSION: 1. Expected postsurgical findings in the right lateral subcutaneous tissues and right gluteus region post ORIF of a trochanteric fracture of right hip. 2. No evidence intra-abdominal hematoma. 3. Large amount of sigmoid and rectal fecal debris. Sigmoid diverticulosis. Please refer to separate right lower extremity CT report. Dictated by: Christo Hughes M.D. on 11/15/2019 at 11:42 Approved by: Christo Hughes M.D. on 11/15/2019 at 11:48
[2019-11-15 11:10] LABS: HEMOLYSIS < 15 (0-50); Iron 29 ug/dL (37-170)
[2019-11-15 11:20] LABS: Percent Iron Saturation 13 % (15-50); Total Iron Binding Capacity 232 ug/dL (265-497); Transferrin 172 mg/dL (206-381)
--- NOTE | 2019-11-15 11:29 | PC.NURSE ---
Addendum entered by Shayna Brown R.N. 11/15/19 15:41: Tramadol really effective for patients discomfort for r.hip. She was able to sit at the side of the bed and do some exerises with physical therapy. Her blood should be done soon, passed onto choco renteria RN. Addendum entered by Shayna Brown R.N. 11/15/19 14:47: Pts unit of blood started at 1312. VSS ...She is tolerating blood well. IV antibiotics infused. Patient got a new iv placed to her r.forearm as her hand iv fell out. Daughter in room visiting. Original Note: Patient fearful this morning about getting up with physical therapy. Started on tramadol and helpful for discomfort to r.hip. Dressing to area cdi. Down to ct scan to see if patient is bleeing around fx site. Her crit is down to 20 and she will be getting 1u of blood. Patient also given toradol and tylenol and is sleeping soundling.
--- NOTE | 2019-11-15 12:34 | PT.IPTN ---
Current Diagnoses Age-related osteoporosis with current pathological fracture, right femur, initial encounter for fracture (11/12/19) Surgery Performed Operation Date: 11/13/19 19:00 Actual Procedures p ORIF Hip/Intramedullary Hip Screw(Right) - Kevin Duvall MD Physical Therapy Treatment Note M2 PT-IP Current Condition Start: 11/14/19 12:22 Freq: NEEDED Status: Active Protocol: Document 11/14/19 11:00 AB (Rec: 11/14/19 12:34 AB [id number]) Physical Therapy Current Condition Current Condition Evaluation Date 11/14/19 Treatment Diagnosis R closed intertrochanteric fx s/p IM nailing; difficulty in walking Onset Date 11/12/2019 Weight Bearing Status Weight Bearing Status Weight Bear as Tolerated Allowed Weight Bearing Amount (enter % RLE WBAT or #) (%) M3 PT-IP Subjective Start: 11/14/19 12:22 Freq: NEEDED Status: Active Protocol: Document 11/15/19 11:58 SP (Rec: 11/15/19 13:15 SP [id number]) Subjective Physical Therapy Visit Type Type Treatment Note Visit Start Time 11:58 Visit Stop Time 12:34 Total Visit Minutes 36 Number of RESIDENCE DIRECTOR Visits 2 Physical Therapy Visit Comments Patient Comments Pt agreeable to PT. Therapy Pain Assessment Pain Present Pain Present Pain Reported Location Bilateral Eye Intensity 5 Scale Used during mobility R hip Pain Behaviors Calling Out,Facial Grimacing, Guarding,Moaning Pain Management Techniques Modification of Treatment,Re- positioning,Timing of Activity with Medications M4 PT-IP Mobility and Gait Start: 11/14/19 12:22 Freq: NEEDED Status: Active Protocol: Document 11/15/19 11:58 SP (Rec: 11/15/19 13:15 SP [id number]) PT-Bed Mobility Assessment Supine to Sit Supine to Sit Maximum Assistance,1 Person Assistance,Head of Bed Elevated,Bedrails Sit to Supine Sit to Supine Maximum Assistance,1 Person Assistance,Bedrails Scooting Scooting to Edge of Bed Maximum Assistance PT-Transfer Assessment Sit to and From Stand Sit to and from Stand Moderate Assistance,1 Person Assistance,Use of Upper Extremities Equipment Transfer Assistive Device Gait Belt,Front Wheeled Walker Transfer Ability Level of Assist Moderate Assistance,1 Person Assistance,Use of Upper Extremities Comments Mobility Comments Pt was laying in bed when arrived. Completed supine to sitting with max cuing for sequencing pelvis/trunk, UE and LE positioning with Max support to EOB while providing cuing for self performance to task wtih multiple rest breaks. Pt's RUE used R bed rail and push from bed, LUE pulled from therapist hand to transition trunk to sitting then directed BUE WB on bed to scoot forward with therapist supporting trunk Min- Mod to decrease retro lean and Max A for each LE forward scoot until BLE supported on floor. Sit to stand Mod A x1 and cuing for pushing from bed 1 UE and other on FWW, upright posture and WB through BLE with quad facilitation to keep RLE knee extension then lateral traveling to R each LE pivot scoot to right toward bedrail aat HOB secondary to unable to unweight each foot completely. Pt did completely scoot R foot back to bed x1 before sitting. Pt demonstrated improvement with decreased delay in performance of foot repositioning direction from yesterday. Pt directed to reached back prior to sitting for safety, sitting to supine with use of bed rail RUE and control upper body toward pillow while therapist supported BLE into bed then patient was able to lateral scoot hip herself to L to center usign LUE bent knee WB into bed with BUE usign bed rails, therapist repositioning RLE. Pt was in bed with call light and all needs in reach with daughter inroom when left. Gait Assessment Gait Gait Assistance Required: Moderate Assistance,1 Person Assist Distance (Feet) 3 Able to Maintain Weight Bearing Status Yes During Gait Assistive Devices Assistive Device Gait Belt,Front Wheeled Walker Orthotic/Prosthetic Devices or Brace: No Gait Deviations General Gait Pattern Antalgic,Decreased Stride Length,Decreased Feet Clearance,Flexed Trunk,Narrow Based Gait Factors Limiting Gait Function Factors Limiting Gait Function Decreased Activity Tolerance, Decreased Strength,Difficulty Following Directions, Incoordination,Limited Range of Motion,Pain,Poor Balance, Poor Safety Awareness Comments Gait Comments Pt was able to lateral scoot each LE to R from mid to HOB usign FWW Mod A of 1 with Max cuing for sequencing and 10% A only once for RLE scoot support. PT-Balance Assessment Sitting Balance and Reactions Static Sitting Balance Ability Good Dynamic Sitting Balance Ability Fair Standing Balance and Reactions Static Standing Balance Ability Fair Dynamic Standing Balance Ability Poor Device Used FWW M5 PT-IP Objective Assessments Start: 11/14/19 12:22 Freq: NEEDED Status: Active Protocol: Document 11/14/19 11:00 AB (Rec: 11/14/19 12:34 AB [id number]) Orientation Orientation/Cognition Level of Alertness Alert Orientation Name,Place,Situation Language Function Ability Hard of Hearing Safety Awareness Decreased Safety Awareness Gross Range of Motion Lower Extremity ROM Assessment Right Impaired Impairments increase RLE guarding limiting hip and knee flexion Strength Lower Extremity Strength Assessment Bilaterally Impaired Comments Strength Comments LLE: 4-/5 RLE: 3-/5 Sensation Assessment Sensation Gross Sensation WNL Muscle Tone Muscle Tone WNL Yes M6 PT-IP Treatment Start: 11/14/19 12:22 Freq: NEEDED Status: Active Protocol: Document 11/15/19 11:58 SP (Rec: 11/15/19 13:15 SP [id number]) Physical Therapy Treatment Exercises Exercises Ankle Pumps,Gluteal Sets,Quad Sets,Heel Slides,Seated Knee Flexion/Extension Education Education Provided Precautions,Weight Bearing Status,Post-Op Packet,Safety Other Treatments Other Treatment Performed Instructed and performed: AAROM R LE heel slide and R hip ER beyond neutral ( provided pillow when laying back in bed for maintaining R hip no IR precautions). M7 PT-IP Assessment and Plan Start: 11/14/19 12:22 Freq: NEEDED Status: Active Protocol: Document 11/15/19 11:58 SP (Rec: 11/15/19 13:15 SP [id number]) PT Summary Assessment and Plan Potential Rehabilitation Potential Fair Status of Condition at Evaluation Evolving Summary Impairments Pain,ROM,Strength,Balance, Coordination,Sensation,Tone, Cognition,Bed Mobility, Transfers,Gait,Activity Tolerance Assessment Summary Pt able to move with decreased support of only 1 person required. Pt requiring Mod - max A x 1 with all mobilities, was able scoot forward in bed with max cuing and support to sequence. Pt requires time to complete requested mobility. Pt required pt will require SNF rehab to improve strength and functional mobility. See further comments. Goals Bed Mobility Goal Contact Guard Assistance Transfer Goal Contact Guard Assistance,Front Wheeled Walker Gait Goal Contact Guard Assistance,Front Wheel Walker Gait Distance 100 Days to Meet Goals 10 Frequency of Treatment Frequency Of Treatment Twice a Day Treatment Plan Physical Therapy Treatment Plan Bed Mobility Training,Transfer Training,Gait Training, Therapeutic Exercise,Balance Retraining,Post Op Education, Discharge Planning,Hot or Cold Pack,Neuromuscular Re-ed, Coordination Retraining,Manual Therapy Other Recommendations and Next Treatment transfers, ambulation Focus Recommendations To Nursing Amount of Assist Needed 1 Person Assist Discharge Recommendations PT Discharge Recommendations SNF Rehab Transportation Needs at Discharge Wheelchair/Cabulance
[2019-11-15] MEDS: POTASSIUM CHLORIDE 20 MEQ TAB 40 MEQ PO (12:51)
--- NOTE | 2019-11-15 14:18 | CM.DPC ---
Addendum entered by Keiry Simpson LPN 11/15/19 14:47: Pt and daughter express relief that [facility] has a bed for pt. RN Shayna confirms no PICC has been ordered yet. PASRR: note now that this was completed yesterday by JAMILA Tatum. Will need review of same on day of d/c. P: [facility] when stable for same. Original Note: DCP: continued: case received and discussed in Team Rounds. EMR reviewed: plan for snf at d/c noted. Followed up on this: obtained OT order. Left a for [facility] ([facility]) in followup to referral left yesterday by DCP colleague Deepti. Confirmed INPT admission status: as of 11/12. Payer: Medicare and [employer]. Admission to hospitalist team with orthopedic consulting and Dr. Cervantes taking pt to surgery to repair R proximal femur fracture. WBAT. Urine is + for ERBL and with need for several more days of IV antibiotics. Plan for this to continue at the snf level. Dr. Baltazar says today that the final antibiotic has not yet been decided upon. Received a call from pt's daughter Mara/WILLIAM: [phone]. She confirms she did tour [facility] yesterday and that she and her mother wish this to be the d/c plan when ever her mother is ready for same. UPDATE: just spoke with [facility]. She said she has accepted pt and confirms that current Meropenem is a medication that the facility can accept. Will update pt and her daughter (currently in room). PASRR: will be needed Will check on PICC
--- NOTE | 2019-11-15 17:15 | PT-IP ANOTE ---
Pt unavailable on 1st attempt pm tx due nursing hold blood transfusion, 2nd attempt patient refused stating I would really like to rest, I am just to tired. Daughter stated she didn't sleep much last night either.
--- NOTE | 2019-11-15 20:01 | P.PN_ITS ---
Subjective Subjective Date Patient Seen: 11/15/19 Time Patient Seen: 08:45 Interval history: Ms. Jennyfer Hinds is a 74-year-old female patient with a history of hypertension, lymphedema, chronic right lower extremity wound, breast cancer, vertigo, depression and hallucinations and osteoporosis who presented to the ER after a fall. She fell suffering a right intertrochanteric fracture. She underwent operative fixation and she is seen for follow-up today. Her urine culture did grow an ESBL organism and she will require IV carbapenem for 7 days, today was day 2. This does not necessarily need to be done here but can be completed in a [facility] facility. She continues to have significant R leg pain and her Hg did drop. She had a CT looking for a hematoma which did not show anything other than post-operative changes. She had a transfusion of 1 U PRBC today. Pre-transfusion iron panel showed iron deficiency with anemia of chronic inflammation. She will get some iron with transfusion but will need to start oral iron replacement. Her reticulocyte count is appropriately elevated and there is no evidence of active bleeding. This may be a post operative anemia. She does not show evidence of lysis either. Exam Vital Signs (past 8 hours): - 11/15/19 12:44 11/15/19 12:45 11/15/19 13:13 Temperature 97.1 F L 97.1 F L 97.1 F L Pulse Rate 70 70 70 Respiratory Rate 18 18 18 Blood Pressure 136/49 L 136/49 L 136/49 L Pulse Oximetry 100 11/15/19 13:27 11/15/19 16:50 Temperature 97.1 F L 97.9 F Pulse Rate 65 62 Respiratory Rate 18 16 Blood Pressure 115/53 L 112/60 Pulse Oximetry Oxygen Delivery Method Room Air Oxygen Flow Rate 0 Narrative Exam Narrative: GENERAL APPEARANCE: Well developed, well nourished, elderly female in no acute distress. SKIN: Inspection of the skin reveals no rashes, ulcerations or petechiae. HEENT: The sclerae were anicteric and conjunctivae were pink and moist. Extraocular movements were intact and pupils were equal, round with normal accommodation. External inspection of the ears and nose showed no scars, lesions, or masses. Lips, teeth, and gums showed normal mucosa. The oral mucosa, hard and soft palate, tongue and posterior pharynx were unremarkable. NECK: Supple and symmetric. There was no thyroid enlargement, and no tenderness, or masses were felt. CHEST: Normal AP diameter and normal contour without any kyphoscoliosis. LUNGS: Auscultation of the lungs revealed no wheezes, rhonchi, or rales. CARDIOVASCULAR: There was a regular rate and rhythm with a 3 of 6 systolic murmur. ABDOMEN: Soft and nontender with normal bowel sounds. No ascites was noted. MUSCULOSKELETAL: There was no effusions noted, patient with ight hip pain. Muscle tone was normal. EXTREMITIES: No cyanosis, clubbing or edema. NEUROLOGIC: Alert and oriented x 3. Normal affect. Objective Labs Result Diagrams: 11/15/19 05:42 11/15/19 05:42 Labs: Laboratory Results - last 24 hr 11/15/19 11/15/19 11/15/19 05:42 05:42 09:00 WBC 6.6 RBC 2.20 L Hgb 7.0 L Hct 20.0 L* MCV 91.1 MCH 31.9 MCHC 35.0 RDW 14.2 Plt Count 81 L Neut % (Auto) 59.6 Lymph % (Auto) 30.3 [place] % (Auto) 8.2 Eos % (Auto) 1.7 L Baso % (Auto) 0.2 Neut # (Auto) 3900 Lymph # (Auto) 2000 [place] # (Auto) 500 Eos # (Auto) 100 Baso # (Auto) 0 Percent Retic Sodium 138 Potassium 3.3 L Chloride 108 H Carbon Dioxide 26 BUN 11 Creatinine 0.60 Estimated GFR > 60.0 BUN/Creatinine Ratio 18.3 Glucose 100 Calcium 7.9 L Iron TIBC % Saturation Transferrin Lactate Dehydrogenase Blood Type B Positive Antibody Screen Negative Crossmatch See Detail 11/15/19 11/15/19 11/15/19 09:00 09:00 09:00 WBC RBC Hgb Hct MCV MCH MCHC RDW Plt Count Neut % (Auto) Lymph % (Auto) [place] % (Auto) Eos % (Auto) Baso % (Auto) Neut # (Auto) Lymph # (Auto) [place] # (Auto) Eos # (Auto) Baso # (Auto) Percent Retic 4.6 H Sodium Potassium Chloride Carbon Dioxide BUN Creatinine Estimated GFR BUN/Creatinine Ratio Glucose Calcium Iron 29 L TIBC 232 L % Saturation 13 L Transferrin 172 L Lactate Dehydrogenase 336 Blood Type Antibody Screen Crossmatch Assessment & Plan Assessment & Plan narrative: 1. Right intertrochanteric fracture, present on admission, likely pathologic -patient with a known history of vertigo which is a risk factor. She also has underlying osteoporosis. -patient is status post definitive surgery on November 13, 2019. -continue physical and occupational therapy 2. 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 However given the presence of ESBL and no prior treatment she will require definitive treatment of ESBL organism with 7 days of a carbapenem. 3. Right lower extremity wound, chronic -unable to further specify. Patient is in an unna boot and I am further to specify this at this time based upon my evaluation. -continue Unna boot for now 4. Depression -continue citalopram 5. History of breast cancer -resume tamoxifen postoperatively 6. Hypertension -continue clonidine 7. Osteoporosis -resume vitamin-D, calcium when appropriate. -may defer in the immediate postoperative setting but resume within 2 weeks postoperative 8. Acute blood loss anemia, -likely secondary to operative interventions. Will continue to follow hemoglobin. She has a combination iron deficiency and anemia of chronic inflammation based on iron profile. - will start oral iron at discharge. - continue to follow - s/p 1 U PRBC, can discharge once stable. - CT did not show evidence of significant hematoma. Dispo: Pending SNF placement once medically stable, anticipate medically ready in the next 1-2 days. She will require 7 total days of a carbapenem, with today being day 2/7
--- NOTE | 2019-11-15 23:26 | PC.NURSE ---
1640: PRBC infusion ended, no s/sx of blood transfusion reaction. VSS and afebrile.
[2019-11-16 00:25] VITALS: BP 117/64; PULSE 68; RESP 18; TEMP 36.5; O2SAT 98
[2019-11-16] MEDS: MEROPENEM 1 GM/50 ML PIGGYBACK IV ×2 (01:44→11:24)
[2019-11-16] MEDS: KETOROLAC 15 MG/ML VIAL IV ×3 (03:01→14:47)
[2019-11-16 05:32] VITALS: BP 114/55; PULSE 68; RESP 19; TEMP 37.4; O2SAT 97
[2019-11-16 05:51] LABS: Add Manual Diff / Slide Review NO; Basophils Absolute Auto 0 /uL (0-100); Basophils Percent Auto 0.4 % (0-2); Eosinophils Absolute Auto 200 /uL (0-450); Eosinophils Percent Auto 2.6 % (2-4); Hemoglobin 8.7 g/dL (12.0-16.0); Lymphocytes Absolute Auto 1700 /uL (1100-4500); Lymphocytes Percent Auto 26.2 % (25-40); Mean Corpuscular HGB Conc 35.1 % (30-36); Mean Corpuscular Hemoglobin 31.6 PG (26-34); Monocytes Absolute Auto 500 /uL (0-900); Monocytes Percent Auto 7.5 % (3-14); Neutrophils Absolute Auto 4200 /uL (1500-7000); Neutrophils Percent Auto 63.3 % (50-75); Platelet Count 79 X10^3/uL (150-400); Red Blood Cell Count 2.77 X10^6/uL (4.0-5.2); Red Cell Distribution Width 14.9 % (11.6-14.8); White Blood Cell Count 6.7 X10^3/uL (4.5-11.0)
[2019-11-16 05:55] LABS: Hematocrit 24.9 % (36-46)
[2019-11-16 05:59] LABS: Blood Urea Nitrogen 14 mg/dL (7-17); Calcium 8.4 mg/dL (8.4-10.2); Carbon Dioxide 28 mmol/L (22-32); Chloride 105 mmol/L (98-107); Estimated Glomerular Filt Rate > 60.0 mL/min (>60); Glucose 95 mg/dL (80-110); HEMOLYSIS 17 (0-50); Potassium 4.3 mmol/L (3.4-5.1); Sodium 135 mmol/L (137-145)
[2019-11-16 07:50] VITALS: BP 126/75; PULSE 65; RESP 16; TEMP 35.8; O2SAT 97
[2019-11-16] MEDS: METOCLOPRAMIDE 10 MG/2 ML INJ IV (07:53)
[2019-11-16] MEDS: MULTIVIT,CALC,MINS/IRON/FOLIC 1 TABLET 1 TAB PO (11:22)
[2019-11-16] MEDS: CITALOPRAM 20 MG TABLET PO (11:22)
[2019-11-16] MEDS: CHOLECALCIFEROL (VITAMIN D3) 5,000 UNIT TABLET 5000 UNIT PO (11:23)
[2019-11-16] MEDS: TAMOXIFEN 10 MG TABLET 20 MG PO (11:23)
[2019-11-16] MEDS: TRAMADOL 50 MG TABLET PO (11:23)
[2019-11-16] MEDS: CALCIUM CARBONATE 600 MG TABLET PO (11:23)
[2019-11-16] MEDS: ACETAMINOPHEN 325 MG TABLET 975 MG PO (11:24)
[2019-11-16] MEDS: cloNIDine 0.1 MG TABLET PO (11:27)
[2019-11-16] MEDS: SODIUM CHLORIDE 0.9% FLUSH 10 ML IV (11:27)
[2019-11-16] MEDS: DOCUSATE 100 MG CAPSULE PO (11:27)
[2019-11-16 11:55] VITALS: BP 116/68; PULSE 77; RESP 16; TEMP 36.2; O2SAT 100
--- NOTE | 2019-11-16 12:27 | OT.IPNOTE ---
Just initiating OT eval and PT present when nursing came for medical procedure. Check on Pt later if appropriate.
--- NOTE | 2019-11-16 13:08 | CM.DANOTE ---
DCP: continued. Case discussed in Team Rounds. Dr. Baltazar ordered a midline/ in prep for the d/c, now expected for today. This has been placed. MATT Corral started IV dose of Merapenem at 1230 and next dose is in 8 hours. Orders are now in place, d/c summary still in draft. PASRR[facility] along with [facility] orders and all originals to [facility] packet. [facility] has been updated. W/C van is now set for 1545 pickup time, in part to accommodate pt's daughter Mara's request that she be present when he mother d/c's so that she can help her settle in and provide reassurance. Pt is updated and agreeabe to the plan. P: [facility] 1545 as per above specifics.
--- NOTE | 2019-11-16 13:20 | PC.NURSE ---
Pt is going to discharge to [facility] today.. Waldron catheter taken out around 1100 and patient has not voided yet. She has ESBL in her urine and is on IV antibiotics. Theresa Picc Line RN placed a midline in her r.arm. She will be having 4 days of antibiotics at the care center. Dressing to r.hip is cdi, patient given tramadol and toradol with tylenol this morning. She states that she is anxious and did have some nausea earlier, given 5mg of iv reglan and helpful. She is trying to eat lunch and drink some gingerale at this time so that she can void.
--- NOTE | 2019-11-16 14:48 | PT-IP ANOTE ---
checked on pt and set up for transfers but tech came in to do a procedure with pt. will f/u.
--- NOTE | 2019-11-16 15:48 | PT.IPTN ---
Current Diagnoses Age-related osteoporosis with current pathological fracture, right femur, initial encounter for fracture (11/12/19) Surgery Performed Operation Date: 11/13/19 19:00 Actual Procedures p ORIF Hip/Intramedullary Hip Screw(Right) - Kevin Duvall MD Physical Therapy Treatment Note M2 PT-IP Current Condition Start: 11/14/19 12:22 Freq: NEEDED Status: Discharge Protocol: Document 11/14/19 11:00 AB (Rec: 11/14/19 12:34 AB [id number]) Physical Therapy Current Condition Current Condition Evaluation Date 11/14/19 Treatment Diagnosis R closed intertrochanteric fx s/p IM nailing; difficulty in walking Onset Date 11/12/2019 Weight Bearing Status Weight Bearing Status Weight Bear as Tolerated Allowed Weight Bearing Amount (enter % RLE WBAT or #) (%) M3 PT-IP Subjective Start: 11/14/19 12:22 Freq: NEEDED Status: Discharge Protocol: Document 11/16/19 15:48 AB (Rec: 11/16/19 18:37 AB [id number]) Subjective Physical Therapy Visit Type Type Treatment Note Visit Start Time 15:48 Visit Stop Time 16:07 Total Visit Minutes 19 Number of RESIDENTIAL FIELD MANAGER Visits 0 Physical Therapy Visit Comments Patient Comments nurse requested assist for pt to w/c for d/c Therapy Pain Assessment Pain When Pain Assessed At Rest Pain Present Pain Present Pain Reported Location Right Hip Scale Used pain scale not stated M4 PT-IP Mobility and Gait Start: 11/14/19 12:22 Freq: NEEDED Status: Discharge Protocol: Document 11/16/19 15:48 AB (Rec: 11/16/19 18:37 AB [id number]) PT-Bed Mobility Assessment Supine to Sit Supine to Sit Maximum Assistance,1 Person Assistance,Head of Bed Elevated Scooting Scooting to Edge of Bed Maximum Assistance PT-Transfer Assessment Sit to and From Stand Sit to and from Stand Maximum Assistance,2 Person Assistance,Use of Upper Extremities Equipment Transfer Assistive Device Gait Belt,Front Wheeled Walker Orthotic/Prosthetic Devices or Brace: No Transfers Transfer Destination Wheelchair Transfer Technique Stand Pivot Transfer Ability Level of Assist Maximum Assistance,2 Person Assistance,Use of Upper Extremities Comments Mobility Comments pt completed supine to sit with HOB elevated max A and max cues. requires assist with RLE mobility and to keep trunk forward. pt required max A to scoot into the EOB. completed sit to stand max A x 2 from EOB. pt required max A to maintain standing balance using FWW for support while assisted with brief management . pt completed stand pivot transfer using FWW max A x 2 and max cues for techniques and safety. positioned on chair. call light and table placed within reach. M5 PT-IP Objective Assessments Start: 11/14/19 12:22 Freq: NEEDED Status: Discharge Protocol: Document 11/14/19 11:00 AB (Rec: 11/14/19 12:34 AB [id number]) Orientation Orientation/Cognition Level of Alertness Alert Orientation Name,Place,Situation Language Function Ability Hard of Hearing Safety Awareness Decreased Safety Awareness Gross Range of Motion Lower Extremity ROM Assessment Right Impaired Impairments increase RLE guarding limiting hip and knee flexion Strength Lower Extremity Strength Assessment Bilaterally Impaired Comments Strength Comments LLE: 4-/5 RLE: 3-/5 Sensation Assessment Sensation Gross Sensation WNL Muscle Tone Muscle Tone WNL Yes M6 PT-IP Treatment Start: 11/14/19 12:22 Freq: NEEDED Status: Discharge Protocol: Document 11/16/19 15:48 AB (Rec: 11/16/19 18:37 AB [id number]) Physical Therapy Treatment Exercises Exercises Heel Slides Education Education Provided Safety M7 PT-IP Assessment and Plan Start: 11/14/19 12:22 Freq: NEEDED Status: Discharge Protocol: Document 11/16/19 15:48 AB (Rec: 11/16/19 18:37 AB [id number]) PT Summary Assessment and Plan Potential Rehabilitation Potential Fair Summary Impairments Pain,ROM,Strength,Balance, Coordination,Sensation,Tone, Cognition,Bed Mobility, Transfers,Gait,Activity Tolerance Progress Towards Goals Slow Progress due to Pain,Slow Progress due to Medical Issues,Slow Progress due to Activity Tolerance Assessment Summary pt requires max A x 2 and max cues with mobility using FWW. pt is discharging to SNF. Goals Bed Mobility Goal Contact Guard Assistance Transfer Goal Contact Guard Assistance,Front Wheeled Walker Gait Goal Contact Guard Assistance,Front Wheel Walker Gait Distance 100 Days to Meet Goals 10 Frequency of Treatment Frequency Of Treatment Twice a Day Treatment Plan Physical Therapy Treatment Plan Bed Mobility Training,Transfer Training,Gait Training, Therapeutic Exercise,Balance Retraining,Post Op Education, Discharge Planning,Hot or Cold Pack,Neuromuscular Re-ed, Coordination Retraining,Manual Therapy Other Recommendations and Next Treatment transfers, ambulation Focus Recommendations To Nursing Amount of Assist Needed 2 Person Assist Discharge Recommendations PT Discharge Recommendations SNF Rehab Transportation Needs at Discharge Wheelchair/Cabulance
--- NOTE | 2019-11-16 16:07 | PC.NURSE ---
Pt left unit with daughter and staff from [facility] in a wheelchair with all of her belongings. She was in slight pain and had stood and pivoted with FWW and SBA x 2 to wheelchair.
--- NOTE | 2019-11-16 22:34 | PM.DS.1 ---
History of Present Illness History of Present Illness Date Patient Seen: 11/16/19 Time Patient Seen: 10:15 Chief complaint: Rt Hip Pain Narrative: As per AYAKA Fields: Ms. Jennyfer Hinds is a 74-year-old female patient with a history of hypertension, lymphedema, chronic right lower extremity wound, breast cancer, vertigo, depression and hallucinations and osteoporosis who presents to the ER via EMS following a fall. The patient states she was in her home and turned too quickly losing her balance and falling. She states usually she is able to catch herself but could not this time and landed on her right side. She attempted to move to reach her phone but was excruciating pain and called for help through her Jolie. The patient denies striking her head, loss of consciousness, neck or back pain. The patient denies recent complaints of illness, fevers chills, nasal congestion or sore throat. She denies chest pain or palpitations. She has no abdominal pain, heartburn, nausea vomiting. She has had no complaints of constipation or diarrhea and denies urinary frequency urgency or burning but does have stress incontinence. She presently complains of profound right hip pain with any movement. She denies current symptoms but has been struggling with grief is currently undergoing counseling experiencing hallucinations seeing her late . Upon arrival to the ER the patient apparently was struggling with emergence from ketamine she received due to her allergies to all opiates. She was hypertensive at 198/88 with a heart rate of 86, respirations 20 saturating 100% on room air. Right hip x-ray identifies a comminuted intertrochanteric right hip fracture. Her chest x-ray shows no acute cardiopulmonary disease with no pneumonia or infiltrates. Initial 12 lead EKG obtained in the ER had gross artifact and was unreadable. On laboratory analysis the patient has white count of 11.0, hemoglobin of 12.5, hematocrit 36.1 and platelets 162. Her electrolytes are within normal range and has a BUN of 15 and creatinine is 0.4. Her nonfasting glucose is 164. She has an EGFR of greater than 60. Her liver functions are all within normal range. Dr. Eloina mcmanus is contacted the ER and agrees to consult. Patient is admitted to the medicine service for anchor trochanteric hip fracture with orthopedic consult. Discharge Providers Provider Date of admission: 11/12/19 21:43 Discharge Date: 11/16/19 Primary care physician: AYAKA Skinner Consults: 11/12/19 22:03 Consult to Physician Routine Comment: Consulting Provider: Kevin Duvall Reason for consultation: Comminuted intertrochanteric right hip fracture Has provider been notified: Yes 11/13/19 21:10 Consult to Discharge Planning Routine Comment: Consult to Physical Therapy Evaluate & Treat Comment: Physician Instructions: Evaluate and Treat Consult to Respiratory Therapy Evaluate & Treat Comment: Physician Instructions: Evaluate and treat 11/15/19 14:15 Consult to Occupational Therapy Evaluate & Treat Comment: Physician Instructions: Evaluate and treat Discharge provider: Reji Baltazar DO Summary Hospital Course Discharge Diagnosis: See below. Hospital Course: Hospital Course By Problem: 1. Right intertrochanteric fracture, present on admission, likely pathologic -patient with a known history of vertigo which was a risk factor. She also has underlying osteoporosis. -patient is status post definitive surgery on November 13, 2019. She did well following surgery. She had a CT scan to evaluate her source of anemia, there was no significant findings not consistent with post-operative changes. -continue physical and occupational therapy at rehab, outpatient orthopedic follow up per orthopedic surgery. 2. 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 However given the presence of ESBL and no prior treatment she will require definitive treatment of ESBL organism with 7 days of a carbapenem. Patient received 3 days of treatment while admitted, a midline was placed and she will complete therapy at SNF rehab. 3. Right lower extremity wound, chronic -unable to further specify. Patient is in an unna boot and I am further to specify this at this time based upon my evaluation. -continue Unna boot for now 4. Depression, chronic, stable -continue citalopram 5. History of breast cancer, chronic, stable -resume tamoxifen postoperatively 6. Hypertension, chronic, stable. -continue clonidine 7. Osteoporosis -resume vitamin-D, calcium when appropriate. -may defer in the immediate postoperative setting but resume within 2 weeks postoperative 8. Acute blood loss anemia, -likely secondary to operative interventions. She has a combination iron deficiency and anemia of chronic inflammation based on iron profile. - oral iron recommended upon discharge - s/p 1 U PRBC while admitted for a Hg of 7.0. Responded to 8.7 after transfusion. There is a significant source of iron in transfusion. - CT did not show evidence of significant hematoma. Dispo: Patient was discharged to [facility] for further physical therapy and completion of carbapenem for ESBL E. coli. Time Spent with Patient Time spent: Greater than 30 minutes Exam Vital Signs (past 8 hours): Oxygen Delivery Method Room Air Oxygen Flow Rate 0 Narrative Exam Narrative: GENERAL APPEARANCE: Well developed, well nourished, elderly female in no acute distress. SKIN: Inspection of the skin reveals no rashes, ulcerations or petechiae. HEENT: The sclerae were anicteric and conjunctivae were pink and moist. Extraocular movements were intact and pupils were equal, round with normal accommodation. External inspection of the ears and nose showed no scars, lesions, or masses. Lips, teeth, and gums showed normal mucosa. The oral mucosa, hard and soft palate, tongue and posterior pharynx were unremarkable. NECK: Supple and symmetric. There was no thyroid enlargement, and no tenderness, or masses were felt. CHEST: Normal AP diameter and normal contour without any kyphoscoliosis. LUNGS: Auscultation of the lungs revealed no wheezes, rhonchi, or rales. CARDIOVASCULAR: There was a regular rate and rhythm with a 3 of 6 systolic murmur. ABDOMEN: Soft and nontender with normal bowel sounds. No ascites was noted. MUSCULOSKELETAL: There was no effusions noted, patient with improved Right hip pain. Muscle tone was normal. EXTREMITIES: No cyanosis, clubbing or edema. NEUROLOGIC: Alert and oriented x 3. Normal affect. Objective Labs Result Diagrams: 11/16/19 05:30 11/16/19 05:30 Labs: Laboratory Results - last 24 hr 11/16/19 11/16/19 05:30 05:30 WBC 6.7 RBC 2.77 L Hgb 8.7 L Hct 24.9 L MCV 90.0 MCH 31.6 MCHC 35.1 RDW 14.9 H Plt Count 79 L Neut % (Auto) 63.3 Lymph % (Auto) 26.2 [facility] % (Auto) 7.5 Eos % (Auto) 2.6 Baso % (Auto) 0.4 Neut # (Auto) 4200 Lymph # (Auto) 1700 [facility] # (Auto) 500 Eos # (Auto) 200 Baso # (Auto) 0 Sodium 135 L Potassium 4.3 Chloride 105 Carbon Dioxide 28 BUN 14 Creatinine 0.50 L Estimated GFR > 60.0 BUN/Creatinine Ratio 28.0 H Glucose 95 Calcium 8.4 Discharge Plan Discharge Plan Patient Disposition: SNF Transfer to: [facility] Discharge comment: You were admitted to the hospital with a R intertrochanteric fracture. You had surgery to fix this. You had a low iron level and are being discharged on iron. You also received a transfusion. Your urine came back positive for ESBL E.coli and you require 7 total days of IV antibiotics (today is day 37). Discharge orders & Medications Prescriptions: New methocarbamol 500 mg Tablet 500 mg PO TID PRN (Reason: Muscle Spasm) 7 Days Qty: 21 RF: 0 acetaminophen 325 mg Tablet 975 mg PO TID 7 Days Qty: 63 RF: 0 magnesium hydroxide [Milk of Magnesia] 400 mg/5 mL Suspension 30 ml PO BEDTIME 7 Days Qty: 10 RF: 0 bisacodyl 10 mg Suppository 10 mg KS PRN PRN (Reason: Constipation) 7 Days RF: 0 docusate sodium [DOK] 100 mg Capsule 100 mg PO BID 7 Days Qty: 14 RF: 0 ondansetron 4 mg Tablet,Disintegrating 4 mg PO Q4HR PRN (Reason: Nausea And Vomiting) 7 Days Qty: 7 RF: 0 meropenem-0.9% sodium chloride 1 gram/50 mL Piggyback 1 gm IV Q8H 4 Days Qty: 12 RF: 0 tramadol 50 mg Tablet 50 mg PO QID PRN (Reason: Pain, Moderate (4-6)) 7 Days Qty: 28 RF: 0 Continued clonidine HCl 0.1 mg PO DAILY RF: 0 xoourymkjaih-Sm-gpdo-minerals 2 tab PO DAILY RF: 0 tamoxifen 20 mg PO DAILY RF: 0 cholecalciferol (vitamin D3) 5,000 unit capsule 5,000 unit PO DAILY RF: 0 calcium 600 mg PO DAILY Qty: 90 RF: 0 citalopram 20 mg tablet 20 mg PO DAILY Qty: 30 RF: 3 Follow up/Referrals: Mei Martinez ARNP [Primary Care Provider] - Discharge Health Status Health Concerns: R intertrochanteric fracture Multidrug resistant organism: Other Precautions: Contact Diet/Activity/Treatments Diet: Diet as Tolerated Activity: As tolerated, WBAT RLE Discharge Data Primary Care Provider: Mei Martinez Discharges patient from system. Discharge Date/Time: 11/16/19 16:08
== END 2019-11-16 16:08 | DRG 481 ==
LOC: ED 21:41 → AC 21:46
PROVIDERS: Internal Medicine; Orthopaedic Surgery; Admitting Provider Nurse Practitioner Adult Health; Emergency Provider Emergency Medicine; PCP Registered Nurse; Referring Provider Emergency Medicine; Visit Provider Nurse Practitioner Adult Health
PROC: 0QH606Z Insertion of Intramedullary Internal Fixation Device into Right Upper Femur, Open Approach (ICD-10-PCS; CPT 27245; principal; 2019-11-13 19:00)
DX: M80.051A Age-related osteoporosis with current pathological fracture, right femur, initial encounter for fracture (principal); N39.0 Urinary tract infection, site not specified; Z16.24 Resistance to multiple antibiotics; D62 Acute posthemorrhagic anemia; L97.811 Non-pressure chronic ulcer of other part of right lower leg limited to breakdown of skin; I10 Essential (primary) hypertension; I89.0 Lymphedema, not elsewhere classified; B96.29 Other Escherichia coli [E. coli] as the cause of diseases classified elsewhere; I87.2 Venous insufficiency (chronic) (peripheral)
CPT/HCPCS: 11042; 36415; 36430; 71045; 73502; 73700; 74176; 76000; 80048; 80053; 81001; 83540; 83550; 83615; 83735; 85014; 85018; 85025; 85027; 85045; 86850; 86900; 86901; 87070; 87075; 87077; 87086; 87147; 87186; 87205; 93005; 96374; 96375; 97110; 97116; 97162; 97530; 99213; 99284; 99285; 99291; P9016; J0131; J0690; J1100; J1200; J1650; J1885; J2060; J2250; J2405; J2704; J2765

== ENCOUNTER 2019-11-19 08:45 | Emergency (ER) | payer MEDICARE, BC, SELFPAY ==
[2019-11-19] VITALS (12 sets, daily range): BP systolic 103–137; BP diastolic 53–77; PULSE 70–78; RESP 16–23; TEMP 36.8; O2SAT 91–99; BMI 34.0
--- NOTE | 2019-11-19 | DI.CT.S_ITS ---
PROCEDURE: CT LE RT W CON INDICATIONS: CONTINUED RIGHT HIP AND THIGH PAIN POST HIP PINNING TECHNIQUE: After the administration of intravenous contrast, 3 mm axial sections acquired of the right thigh, with coronal and sagittal reformats. COMPARISON: [facility], CR, XR HIP W PEL IF DONE RT 2V, 11/13/2019, 21:20. [facility], CT, CT LE RT WO CON, 11/15/2019, 9:36. FINDINGS: Image quality: Diagnostic. Bones: Postoperative changes are again evident related to an open reduction and internal fixation procedure involving a proximal intertrochanteric right femur fracture. A trochanteric nail is secured in place by a single distal interlocking screw and a proximal sliding hip screw device. Orthopedic hardware is intact. Alignment is unchanged. The alignment of the fracture fragments is also unchanged. No definite callus formation is identified. A portion of the fracture line is noted to extend beyond the intertrochanteric region into the proximal femoral shaft along the posterior margin of the proximal femur. This is unchanged since the prior study. No additional fractures are identified involving the osseous structures of the imaged pelvis or right femur. Soft tissues: Extensive soft tissue edema is identified overlying the lateral margin of the right hip with areas of soft tissue air and mild subcutaneous fluid. A small loculated fluid collection is identified within the subcutaneous tissues of the right lateral upper thigh and within the gluteal region that measures at least 4.1 x 1.9 x 3.2 cm (image 9, series 7), which may be slightly larger on the current exam. Minimal areas of soft tissue air are evident within the quadriceps muscles of the proximal to mid right thigh. The amount of air is less pronounced within the soft tissues when compared to the prior study. Superficial fascial edema is present. There also may be a minimal amount of edema extending into the deep fascial planes of the anterior compartment. The vastus lateralis and vastus intermedius muscles appear to be somewhat edematous. No soft tissue masses are appreciated. The vascular structures are grossly unremarkable. Included soft tissues of the pelvis are unchanged since the prior study. Please note that the ligamentous, tendinous, and cartilaginous structures of the knee and hip are not adequately evaluated on CT. IMPRESSION: 1. Unchanged alignment of the proximal right femur fracture, status post ORIF. 2. No new fractures. 3. Soft tissue edema about the proximal right thigh is most pronounced within the subcutaneous tissues with areas of fluid and air. There is also air within the quadriceps muscles. While this air may be related to recent surgery, it is felt that there should have resolved by now from the surgery. Clinical correlation to exclude a soft tissue infection, including quadriceps infectious myositis is recommended. 4. Small fluid collection within it the right lateral upper thigh adjacent to the gluteal muscles may represent a postoperative hematoma or seroma. Clinical correlation to exclude abscess is recommended. Dictated by: Osmar Olmos M.D. on 11/19/2019 at 10:25 Approved by: Osmar Olmos M.D. on 11/19/2019 at 10:37
--- NOTE | 2019-11-19 09:25 | DI.RAD.S_ITS ---
PROCEDURE: XR CHEST 1V INDICATIONS: acute confusion. TECHNIQUE: One view of the chest was acquired. COMPARISON: [facility], CR, XR CHEST 1V, 11/12/2019, 21:02. FINDINGS: Surgical changes and devices: None. Lungs and pleura: Perihilar interstitial prominence is evident without a definite area of pulmonary consolidation. No effusion or pneumothorax is evident. Mediastinum: Mediastinal contours appear normal. Heart size is normal. Bones and chest wall: No suspicious bony lesions. Overlying soft tissues appear unremarkable. IMPRESSION: Prominent perihilar lung markings may represent pulmonary edema, chronic interstitial changes, or potentially a viral bronchiolitis. Please correlate clinically. Dictated by: Osmar Olmos M.D. on 11/19/2019 at 9:56 Approved by: Osmar Olmos M.D. on 11/19/2019 at 9:57
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
[2019-11-19] MEDS: KETOROLAC 60 MG/2 ML VIAL 30 MG IV (09:44)
[2019-11-19] MEDS: SODIUM CHLORIDE 0.9% 1,000 ML 1000 ML IV (09:45)
[2019-11-19 09:48] LABS: Add Manual Diff / Slide Review NO; Basophils Absolute Auto 0 /uL (0-100); Basophils Percent Auto 0.4 % (0-2); Eosinophils Absolute Auto 100 /uL (0-450); Eosinophils Percent Auto 1.6 % (2-4); Hemoglobin 8.6 g/dL (12.0-16.0); Lymphocytes Absolute Auto 800 /uL (1100-4500); Lymphocytes Percent Auto 12.6 % (25-40); Mean Corpuscular HGB Conc 34.6 % (30-36); Mean Corpuscular Hemoglobin 31.5 PG (26-34); Monocytes Absolute Auto 400 /uL (0-900); Neutrophils Absolute Auto 5000 /uL (1500-7000); Neutrophils Percent Auto 78.4 % (50-75); Platelet Count 132 X10^3/uL (150-400); Red Blood Cell Count 2.75 X10^6/uL (4.0-5.2); Red Cell Distribution Width 14.7 % (11.6-14.8); White Blood Cell Count 6.4 X10^3/uL (4.5-11.0)
--- NOTE | 2019-11-19 09:49 | DI.CT.S_ITS ---
PROCEDURE: CT ABDOMEN PELVIS W CON INDICATIONS: complains of severe pelvic and low back pain TECHNIQUE: After the administration of intravenous contrast, 5 mm thick sections acquired from the diaphragm to the symphysis. 5 mm coronal and sagittal reformats were acquired. For radiation dose reduction, the following was used: automated exposure control, adjustment of mA and/or kV according to patient size. COMPARISON: [facility], CT, CT HEAD/BRAIN WO CON, 11/19/2019, 9:32. [facility], CR, XR CHEST 1V, 11/19/2019, 10:10. [facility], CT, CT ABDOMEN PELVIS WO CON, 11/15/2019, 9:36. FINDINGS: Image quality: Excellent. ABDOMEN: Lung bases: Lung bases are clear. Heart size is normal. Solid organs: Liver is normal in size and enhancement. Gallbladder demonstrates layering gallstones within its lumen. Biliary system is non dilated. Pancreas enhances normally. Spleen is normal in size and enhancement. No adrenal nodules. Kidneys demonstrate normal size and enhancement, without hydronephrosis. Peritoneum and bowel: Bowel loops demonstrate normal wall thickness and caliber. No free fluid or air. There is a moderate amount of stool seen within the colon. Nodes and vessels: No retroperitoneal or mesenteric adenopathy by size criteria. Aorta and inferior vena cava are normal in size. Atherosclerotic calcification is noted. Miscellaneous: No ventral hernias. PELVIS: Genitourinary: A Waldron catheter is seen, which decompresses the urinary bladder. A vaginal pessary can be seen. This patient is status post hysterectomy. No adnexal masses are seen. Miscellaneous: No inguinal hernias or adenopathy. Bones: No suspicious bony lesions. No vertebral body compression fractures. There is partial visualization of the right proximal femur fixation hardware. Overlying soft tissue postoperative changes are seen, including a lateral fluid collection measuring 4 cm. No ring enhancement can be seen of this fluid collection. Age-appropriate bony degenerative changes are seen. IMPRESSION: No definite imaging explanation is found for this patient's presenting symptoms. Recent right proximal femur surgery, with soft tissue gas. There is a fluid collection seen within the soft tissues laterally, which is attributed to a seroma. Abscess is considered to be highly unlikely. There is a moderate amount of stool seen within the colon. Please correlate with an underlying history of constipation. Incidental note is made of: Gallstones Hysterectomy Vaginal pessary Waldron catheter Dictated by: Carlos A Leblanc M.D. on 11/19/2019 at 9:51 Approved by: Carlos A Leblanc M.D. on 11/19/2019 at 9:56
[2019-11-19 10:06] LABS: Bacteria Urine None Seen; RBC Urine None Seen (0-5/HPF)
[2019-11-19 10:08] LABS: Erythrocyte Sedimentation Rate 35 MM/HR (0-20)
[2019-11-19 10:09] LABS: Lactate (Lactic Acid) 0.7 mmol/L (0.7-2.1)
[2019-11-19 10:10] LABS: Creatine Kinase 21 U/L (30-135)
[2019-11-19 10:12] LABS: Alanine Aminotransferase 18 IU/L (<35); Albumin 2.5 g/dL (3.5-5.0); Alkaline Phosphatase 50 U/L (38-126); Aspartate Aminotransferase 26 IU/L (14-36); Bilirubin Total 0.9 mg/dL (0.2-1.3); Blood Urea Nitrogen 15 mg/dL (7-17); C-Reactive Protein Quant 3.2 mg/dL (<1.0); Calcium 8.1 mg/dL (8.4-10.2); Carbon Dioxide 26 mmol/L (22-32); Chloride 103 mmol/L (98-107); Estimated Glomerular Filt Rate > 60.0 mL/min (>60); Globulin 2.6 g/dL (1.7-4.1); Glucose 115 mg/dL (80-110); HEMOLYSIS < 15 (0-50); Lipase 15 U/L (23-300); Potassium 3.9 mmol/L (3.4-5.1); Sodium 134 mmol/L (137-145); Total Protein 5.1 g/dL (6.3-8.2)
[2019-11-19 10:34] LABS: Appearance Urine UA CLEAR; Bilirubin Urine UA NEGATIVE (NEGATIVE); Color Urine UA YELLOW; Glucose Urine UA NEGATIVE (Negative); Ketones Urine UA NEGATIVE (NEGATIVE); Leukocyte Esterase Urine UA NEGATIVE (NEGATIVE); Nitrite Urine UA NEGATIVE (Negative); Occult Blood Urine UA NEGATIVE (Negative); Protein Urine UA NEGATIVE (Negative)
--- NOTE | 2019-11-19 10:39 | DI.CT.S_ITS ---
PROCEDURE: CT HEAD/BRAIN WO CON INDICATIONS: acute confusion and disorientation TECHNIQUE: Noncontrast 4.5 mm thick angled axial sections acquired from the foramen magnum to the vertex, with coronal and sagittal reformats. For radiation dose reduction, the following was used: automated exposure control, adjustment of mA and/or kV according to patient size. COMPARISON: [facility], CT, CT ABDOMEN PELVIS W CON, 11/19/2019, 10:15. [facility], CT, CT HEAD/BRAIN WO CON, 03/11/2019, 11:39. FINDINGS: Image quality: Excellent. CSF spaces: Basal cisterns are patent. No extra-axial fluid collections. The ventricles are symmetric in size and shape. Brain: No intracranial bleeds or masses. There is cerebral volume loss for age, with resultant ventricular and sulcal prominence. There are periventricular and deep white matter chronic small vessel ischemic changes. There is intracranial internal carotid artery atherosclerosis. Skull and face: Calvarium and visualized facial bones appear intact, without suspicious lesions. Sinuses: Visualized sinuses and mastoids are clear. IMPRESSION: Normal intracranial study for age. Note is made of age-appropriate brain parenchymal volume loss and chronic small vessel ischemic changes. If there is strong clinical suspicion for an acute stroke, please consider an MRI for further evaluation, as it is more sensitive (assuming that there is no contraindication to MRI). Dictated by: Carlos A Leblanc M.D. on 11/19/2019 at 9:50 Approved by: Carlos A Leblanc M.D. on 11/19/2019 at 9:51
[2019-11-19 10:42] LABS: Procalcitonin 0.08 ng/mL (<0.5)
[2019-11-19 10:44] LABS: WBC Urine 0-1/HPF (0-5/HPF)
[2019-11-19 10:45] LABS: Amorphous Sediment Urine 1+; Culture Indicated Urine Cult Not Indicated; Squamous Epithelial Cell Urine 0-1 /HPF (0-5/HPF)
--- NOTE | 2019-11-19 11:19 | PC.NURSE ---
Pt is confused to time & place. Knows herself and her date of . She falls asleep easily but is easily abusable. Right leg / pelvis is very painful to any touch, movement. Pt appears to be more comfortable after toradol at rest but continues to have 10/10 pain w/ any movement or repositioning.
[2019-11-19] MEDS: SODIUM CHLORIDE 0.9% 1,000 ML 150 ML IV (13:21)
[2019-11-19 15:09] LABS: Hematocrit 26.4 % (36-46); Hemoglobin 9.3 g/dL (12.0-16.0)
[2019-11-19] MEDS: TRAMADOL 50 MG TABLET 100 MG PO (16:22)
--- NOTE | 2019-11-19 17:20 | PC.NURSE ---
Daughter verbalized understanding of d/c instructions. Pt and daughter refused d/c of xu stating that pain was not well enough controlled to utilize bed malone & asked that it be left in.
== END 2019-11-19 17:55 | disposition home or self-care (01) ==
PROVIDERS: Emergency Provider Emergency Medicine; PCP Registered Nurse
DX: M25.551 Pain in right hip (principal); M79.604 Pain in right leg; R10.2 Pelvic and perineal pain; M96.842 Postprocedural seroma of a musculoskeletal structure following a musculoskeletal system procedure; R41.0 Disorientation, unspecified
CPT/HCPCS: 36415; 51701; 70450; 71045; 73701; 74177; 80053; 81001; 82550; 82962; 83605; 83690; 84145; 85014; 85018; 85025; 85651; 86140; 96361; 96374; 99284; 99285; J1885; Q9967

== ENCOUNTER → 2019-11-23 14:36 | Outpatient (CLI) | payer MEDICARE, BC, SELFPAY ==
[2019-11-12 22:37] VITALS: BMI 29.1
== END ==
PROVIDERS: PCP Registered Nurse; Referring Provider Registered Nurse; Visit Provider Family Medicine
DX: I87.2 Venous insufficiency (chronic) (peripheral) (principal); I89.0 Lymphedema, not elsewhere classified
CPT/HCPCS: 99212

== ENCOUNTER → 2019-11-29 11:45 | Outpatient (CLI) | payer MEDICARE, BC, SELFPAY ==
[2019-11-12 22:37] VITALS: BMI 29.1
--- NOTE | 2019-11-29 | DI.RAD.S_ITS ---
PROCEDURE: XR HIP W PEL IF DONE RT 2V INDICATIONS: Fracture of unspecified part of neck of unspecified femur, s TECHNIQUE: 2 views of the hip were acquired. COMPARISON: [facility], [place], XR HIP W PEL IF DONE RT 2V, 11/13/2019, 21:20. FINDINGS: Bones: Intramedullary karine and dynamic screw fixation of proximal right femur. There is expected postoperative alignment. Hardware appears intact. Soft tissues: No suspicious soft tissue calcifications or masses. IMPRESSION: Expected postoperative alignment Dictated by: Ramez Hinson M.D. on 11/29/2019 at 13:50 Approved by: Ramez Hinson M.D. on 11/29/2019 at 13:51
== END ==
PROVIDERS: PCP Registered Nurse; Visit Provider Physician Assistant
DX: S72.009D Fracture of unspecified part of neck of unspecified femur, subsequent encounter for closed fracture with routine healing (principal); X58.XXXD Exposure to other specified factors, subsequent encounter
CPT/HCPCS: 73502

== ENCOUNTER → 2019-12-18 13:13 | Outpatient (CLI) | payer MEDICARE, BC, SELFPAY ==
--- NOTE | 2019-12-18 | DI.RAD.S_ITS ---
PROCEDURE: XR KNEE RT 1TO2V INDICATIONS: Popping sound in right knee, radiating pain TECHNIQUE: 2 views of the knee were acquired. COMPARISON: [facility], CT, CT LE RT WO CON, 11/15/2019, 9:36. [facility], CT, CT LE RT W CON, 11/19/2019, 10:15. FINDINGS: Bones: No acute fractures or dislocations. No suspicious bony lesions. There are 3 transverse screws crossing from medial to lateral across the epiphysis in the metadiaphyseal junction areas of the proximal tibia. Soft tissues: No joint effusion. No suspicious soft tissue calcifications. IMPRESSION: Prior transverse screw fixation across the tibial plateau area, no acute trauma foun, no effusion or loose body seen. 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 Dictated by: Osmani Long M.D. on 12/18/2019 at 15:02 Approved by: Osmani Long M.D. on 12/18/2019 at 15:03
== END ==
PROVIDERS: PCP Registered Nurse; Referring Provider Internal Medicine; Visit Provider Internal Medicine
DX: R29.898 Other symptoms and signs involving the musculoskeletal system (principal); M17.11 Unilateral primary osteoarthritis, right knee
CPT/HCPCS: 73560

== ENCOUNTER → 2020-01-04 18:14 | Outpatient (ROUT) | payer SELFPAY ==
[2020-01-04 18:25] LABS: Add Manual Diff / Slide Review NO; Basophils Absolute Auto 0 /uL (0-100); Basophils Percent Auto 0.6 % (0-2); Eosinophils Absolute Auto 100 /uL (0-450); Eosinophils Percent Auto 2.1 % (2-4); Hematocrit 34.4 % (36-46); Hemoglobin 11.6 g/dL (12.0-16.0); Lymphocytes Absolute Auto 1800 /uL (1100-4500); Mean Corpuscular HGB Conc 33.8 % (30-36); Mean Corpuscular Hemoglobin 30.9 PG (26-34); Mean Corpuscular Volume 91.4 fL (80-100); Monocytes Absolute Auto 500 /uL (0-900); Monocytes Percent Auto 8.4 % (3-14); Neutrophils Absolute Auto 3400 /uL (1500-7000); Neutrophils Percent Auto 58.9 % (50-75); Platelet Count 158 X10^3/uL (150-400); Red Blood Cell Count 3.76 X10^6/uL (4.0-5.2); Red Cell Distribution Width 14.7 % (11.6-14.8); White Blood Cell Count 5.8 X10^3/uL (4.5-11.0)
== END ==
PROVIDERS: PCP Registered Nurse; Visit Provider Internal Medicine
DX: I89.0 Lymphedema, not elsewhere classified (principal)
CPT/HCPCS: 85025

== ENCOUNTER → 2020-02-11 15:27 | Outpatient (CLI) | payer MEDICARE, BC, SELFPAY ==
--- NOTE | 2020-02-11 15:29 | DI.US.S_ITS ---
PROCEDURE: US PERIPH VENOUS LOW EXTREM RT INDICATIONS: RIGHT LEG PAIN AND EDEMA TECHNIQUE: Real-time imaging, as well as color and pulse Doppler interrogation, were performed of the lower extremity deep veins from the inguinal ligament to the popliteal fossa. COMPARISON: None. FINDINGS: The common femoral, femoral and popliteal veins are normally compressible, and free of intraluminal thrombus. Color and pulse Doppler demonstrate normal phasic intraluminal flow. There is normal augmentation response to distal compression maneuver. IMPRESSION: Negative for deep venous thrombosis. Dictated by: Carlos A Leblanc M.D. on 02/11/2020 at 15:26 Approved by: Carlos A Leblanc M.D. on 02/11/2020 at 15:26
== END ==
PROVIDERS: PCP Registered Nurse; Referring Provider Nurse Practitioner; Visit Provider Nurse Practitioner
DX: M79.604 Pain in right leg (principal); R60.0 Localized edema
CPT/HCPCS: 93971

== ENCOUNTER → 2020-03-12 12:43 | Outpatient (CLI) | payer MEDICARE, BC, SELFPAY ==
[2020-03-12 14:28] LABS: Hematocrit 33.7 % (36-46); Hemoglobin 11.9 g/dL (12.0-16.0)
[2020-03-12 14:50] LABS: Appearance Urine UA CLEAR; Bilirubin Urine UA NEGATIVE (NEGATIVE); Color Urine UA YELLOW; Glucose Urine UA NEGATIVE (Negative); Ketones Urine UA TRACE (NEGATIVE); Leukocyte Esterase Urine UA NEGATIVE (NEGATIVE); Nitrite Urine UA NEGATIVE (Negative); Occult Blood Urine UA NEGATIVE (Negative); Protein Urine UA TRACE (Negative); Urobilinogen Urine UA 0.2 E.U./dL (0.2); pH Urine UA 5.5 (4.5-8.0)
== END ==
PROVIDERS: Registered Nurse; PCP Nurse Practitioner; Referring Provider Nurse Practitioner; Visit Provider Nurse Practitioner
DX: Z87.440 Personal history of urinary (tract) infections (principal); D64.9 Anemia, unspecified
CPT/HCPCS: 36415; 81003; 85014; 85018

== ENCOUNTER → 2020-04-01 14:55 | Outpatient (CLI) | payer MEDICARE, BC, SELFPAY ==
[2020-03-13 12:18] VITALS: BMI 29.1
[2020-04-01 15:02] LABS: Bacteria Urine None Seen
[2020-04-01 15:09] LABS: Appearance Urine UA CLEAR; Bilirubin Urine UA NEGATIVE (NEGATIVE); Color Urine UA YELLOW; Glucose Urine UA NEGATIVE (Negative); Ketones Urine UA NEGATIVE (NEGATIVE); Leukocyte Esterase Urine UA NEGATIVE (NEGATIVE); Nitrite Urine UA NEGATIVE (Negative); Occult Blood Urine UA NEGATIVE (Negative); Protein Urine UA NEGATIVE (Negative); Specific Gravity Urine UA <=1.005 (1.000-1.035); Urobilinogen Urine UA 0.2 E.U./dL (0.2)
[2020-04-01 15:48] LABS: Culture Indicated Urine Cult Not Indicated; RBC Urine 0-1/HPF (0-5/HPF); Squamous Epithelial Cell Urine 1-5 /HPF (0-5/HPF); Transitional Epi Cells Urine 1-5/HPF (0-5/HPF); WBC Urine 0-1/HPF (0-5/HPF)
== END ==
PROVIDERS: PCP Nurse Practitioner; Referring Provider Nurse Practitioner; Visit Provider Nurse Practitioner
DX: N39.0 Urinary tract infection, site not specified (principal); R39.9 Unspecified symptoms and signs involving the genitourinary system
CPT/HCPCS: 81001

== ENCOUNTER → 2020-06-20 12:42 | Outpatient (CLI) | payer MEDICARE, BC, SELFPAY ==
[2020-03-13 12:18] VITALS: BMI 29.1
--- NOTE | 2020-06-20 | DI.US.S_ITS ---
ULTRASOUND OF RIGHT BREAST AND AXILLA: 06/20/2020 CLINICAL: Focal right axillary pain. Comparison is made to exams dated: 06/20/2020 mammogram - [facility], 09/13/2018 mammogram, 08/10/2018 mammogram - [facility], 04/25/2014 localization, and 04/25/2014 specimen - [facility]. Real-time ultrasound of the right breast axilla was performed. Argueta scale images of the real-time examination were reviewed. No significant abnormalities were seen sonographically in the right axilla. Specifically, no finding to correspond to the patient's pain or palpable abnormality. IMPRESSION: NEGATIVE There is no sonographic evidence of malignancy. There is no abnormality seen in the right axilla to correspond with the palpable abnormality and pain in the right axilla. Return to annual mammogram screening schedule is recommended. Findings and recommendations were conveyed to the patient at time of exam. This exam was interpreted at Station ID: [id number]. Electronically Signed By: Lyndsay alonzo/:06/20/2020 13:49:24 letter sent: Normal Exam Ultrasound BI-RADS: 1 Negative
--- NOTE | 2020-06-20 12:43 | DI.MG.S_ITS ---
BILATERAL DIGITAL DIAGNOSTIC MAMMOGRAM 3D/2D POST LUMPECTOMY: 06/20/2020 CLINICAL: Right breast lump and pain. Comparison is made to exams dated: 09/13/2018 mammogram and 08/10/2018 mammogram - [facility]. There are scattered fibroglandular elements in both breasts. The patient is status post lumpectomy right breast in the posterior depth in the upper outer quadrant. There are stable benign diffuse large karine-like calcifications in both breasts. No significant masses, calcifications, or other findings are seen in either breast. Specifically, no finding to correspond to the patient's palpable abnormality in the axilla. IMPRESSION: INCOMPLETE: NEEDS ADDITIONAL IMAGING EVALUATION There is no abnormality seen in the right axilla to correspond with the palpable abnormality in the right axilla, however, ultrasound is recommended. This was performed immediately following this exam. Mammograms are otherwise stable including post surgical scarring in the right lumpectomy area. This exam was interpreted at Station ID: [id number]. NOTE: For mammograms, a report in lay terms will be sent to the patient. Approximately 15% of breast malignancies will not be visualized mammographically. In the management of a palpable breast mass, a negative mammogram must not discourage biopsy of a clinically suspicious lesion. Electronically Signed By: Lyndsay alonzo/:06/20/2020 13:40:13 ACR BI-RADS Category 0: Incomplete [id number]
== END ==
PROVIDERS: PCP Nurse Practitioner; Referring Provider Registered Nurse; Visit Provider Registered Nurse
DX: R92.8 Other abnormal and inconclusive findings on diagnostic imaging of breast (principal); N63.31 Unspecified lump in axillary tail of the right breast; N64.4 Mastodynia; Z85.3 Personal history of malignant neoplasm of breast
CPT/HCPCS: 76882; 77066; G0279

== ENCOUNTER → 2020-08-12 11:51 | Outpatient (CLI) | payer MEDICARE, BC, SELFPAY ==
[2020-03-13 12:18] VITALS: BMI 29.1
[2020-08-12 12:48] LABS: Appearance Urine UA CLEAR; Bilirubin Urine UA NEGATIVE (NEGATIVE); Color Urine UA YELLOW; Glucose Urine UA NEGATIVE (Negative); Ketones Urine UA TRACE (NEGATIVE); Leukocyte Esterase Urine UA NEGATIVE (NEGATIVE); Nitrite Urine UA NEGATIVE (Negative); Occult Blood Urine UA NEGATIVE (Negative); Protein Urine UA NEGATIVE (Negative)
[2020-08-12 12:56] LABS: Bacteria Urine Few (2-10); Culture Indicated Urine Cult Not Indicated; RBC Urine 0-1/HPF (0-5/HPF); Squamous Epithelial Cell Urine 10-30 /HPF (0-5/HPF); WBC Urine 0-1/HPF (0-5/HPF); pH Urine UA 6.5 (4.5-8.0)
== END ==
PROVIDERS: PCP Nurse Practitioner; Referring Provider Nurse Practitioner; Visit Provider Nurse Practitioner
DX: N39.0 Urinary tract infection, site not specified (principal)
CPT/HCPCS: 81001

== ENCOUNTER → 2020-10-15 11:45 | Outpatient (CLI) | payer MEDICARE, BC, SELFPAY ==
[2020-03-13 12:18] VITALS: BMI 29.1
[2020-10-15 13:11] LABS: Appearance Urine UA CLOUDY; Bilirubin Urine UA NEGATIVE (NEGATIVE); Color Urine UA YELLOW; Glucose Urine UA NEGATIVE (Negative); Ketones Urine UA NEGATIVE (NEGATIVE); Leukocyte Esterase Urine UA 2+ (NEGATIVE); Nitrite Urine UA POSITIVE (Negative); Occult Blood Urine UA 1+ (Negative); Protein Urine UA 1+ (Negative); Specific Gravity Urine UA >=1.030 (1.000-1.035); Urobilinogen Urine UA 0.2 E.U./dL (0.2)
[2020-10-15 13:24] LABS: Bacteria Urine Many (>30); Calcium Oxalate Crystals Urine Few; RBC Urine 5-10/HPF (0-5/HPF); Squamous Epithelial Cell Urine >30 /HPF (0-5/HPF); WBC Urine 30-100/HPF (0-5/HPF)
[2020-10-15 13:25] LABS: Culture Indicated Urine Cult Not Indicated
== END ==
PROVIDERS: PCP Nurse Practitioner; Referring Provider Nurse Practitioner; Visit Provider Nurse Practitioner
DX: R41.0 Disorientation, unspecified (principal); R44.3 Hallucinations, unspecified
CPT/HCPCS: 81003; 81015

== ENCOUNTER → 2020-11-27 12:39 | Outpatient (CLI) | payer MEDICARE, BC, SELFPAY ==
[2020-03-13 12:18] VITALS: BMI 29.1
== END ==
PROVIDERS: PCP Nurse Practitioner; Referring Provider Nurse Practitioner; Visit Provider Nurse Practitioner
DX: Z51.81 Encounter for therapeutic drug level monitoring (principal)
CPT/HCPCS: 93005

== ENCOUNTER → 2021-02-12 12:23 | Outpatient (CLI) | payer MEDICARE, BC, SELFPAY ==
[2020-03-13 12:18] VITALS: BMI 29.1
[2021-02-12 14:16] LABS: Appearance Urine UA SL CLOUDY; Bilirubin Urine UA NEGATIVE (NEGATIVE); Color Urine UA YELLOW; Glucose Urine UA NEGATIVE (Negative); Ketones Urine UA NEGATIVE (NEGATIVE); Leukocyte Esterase Urine UA 1+ (NEGATIVE); Nitrite Urine UA POSITIVE (Negative); Occult Blood Urine UA 3+ (Negative); Protein Urine UA NEGATIVE (Negative); Specific Gravity Urine UA 1.025 (1.000-1.035); Urobilinogen Urine UA 0.2 E.U./dL (0.2)
[2021-02-12 14:54] LABS: RBC Urine 5-10/HPF (0-5/HPF)
[2021-02-12 14:55] LABS: Bacteria Urine Many (>30); Squamous Epithelial Cell Urine 1-5 /HPF (0-5/HPF); Transitional Epi Cells Urine 1-5/HPF (0-5/HPF); WBC Urine 10-30/HPF (0-5/HPF)
[2021-02-12 14:56] LABS: Culture Indicated Urine Cult Not Indicated
== END ==
PROVIDERS: PCP Nurse Practitioner; Referring Provider Registered Nurse Diabetes Educator; Visit Provider Registered Nurse Diabetes Educator
DX: R39.9 Unspecified symptoms and signs involving the genitourinary system (principal)
CPT/HCPCS: 81001; 87077; 87086; 87186

== ENCOUNTER → 2021-04-10 19:54 | Outpatient (CLI) | payer MEDICARE, BC, SELFPAY ==
[2020-03-13 12:18] VITALS: BMI 29.1
== END ==
PROVIDERS: PCP Nurse Practitioner; Visit Provider Physician Assistant
DX: L97.929 Non-pressure chronic ulcer of unspecified part of left lower leg with unspecified severity (principal)
CPT/HCPCS: 87070; 87075; 87205

== ENCOUNTER → 2021-04-14 08:38 | Outpatient (CLI) | payer MEDICARE, BC, SELFPAY ==
[2020-03-13 12:18] VITALS: BMI 29.1
== END ==
PROVIDERS: PCP Nurse Practitioner; Referring Provider Physician Assistant; Visit Provider Family Medicine
DX: I87.2 Venous insufficiency (chronic) (peripheral) (principal); L97.821 Non-pressure chronic ulcer of other part of left lower leg limited to breakdown of skin; L03.116 Cellulitis of left lower limb; I89.0 Lymphedema, not elsewhere classified; I73.9 Peripheral vascular disease, unspecified; R60.0 Localized edema; Z87.891 Personal history of nicotine dependence
CPT/HCPCS: 87070; 87075; 87205; 97597; 97598; 99214

== ENCOUNTER → 2021-04-23 15:58 | Outpatient (CLI) | payer MEDICARE, BC, SELFPAY ==
[2020-03-13 12:18] VITALS: BMI 29.1
== END ==
PROVIDERS: PCP Nurse Practitioner; Referring Provider Nurse Practitioner; Visit Provider Family Medicine
DX: I87.2 Venous insufficiency (chronic) (peripheral) (principal); L97.821 Non-pressure chronic ulcer of other part of left lower leg limited to breakdown of skin; I89.0 Lymphedema, not elsewhere classified; L03.116 Cellulitis of left lower limb; I73.9 Peripheral vascular disease, unspecified; W55.03XS Scratched by cat, sequela
CPT/HCPCS: 99213; 99214

== ENCOUNTER → 2021-05-11 15:49 | Outpatient (CLI) | payer MEDICARE, BC, SELFPAY ==
[2020-03-13 12:18] VITALS: BMI 29.1
== END ==
PROVIDERS: PCP Nurse Practitioner; Referring Provider Nurse Practitioner; Visit Provider Family Medicine
DX: I87.2 Venous insufficiency (chronic) (peripheral) (principal); L97.821 Non-pressure chronic ulcer of other part of left lower leg limited to breakdown of skin; L03.116 Cellulitis of left lower limb; I89.0 Lymphedema, not elsewhere classified; L30.1 Dyshidrosis [pompholyx]; B95.7 Other staphylococcus as the cause of diseases classified elsewhere
CPT/HCPCS: 87070; 87075; 87077; 87186; 87205; 97597; 99214

== ENCOUNTER → 2021-06-02 14:53 | Outpatient (CLI) | payer MEDICARE, BC, SELFPAY ==
[2020-03-13 12:18] VITALS: BMI 29.1
== END ==
PROVIDERS: PCP Nurse Practitioner; Referring Provider Nurse Practitioner; Visit Provider Family Medicine
DX: I87.312 Chronic venous hypertension (idiopathic) with ulcer of left lower extremity (principal); L97.821 Non-pressure chronic ulcer of other part of left lower leg limited to breakdown of skin; I89.0 Lymphedema, not elsewhere classified; L23.9 Allergic contact dermatitis, unspecified cause
CPT/HCPCS: 87070; 87075; 87205; 99213; 99214

== ENCOUNTER → 2021-06-09 10:34 | Outpatient (CLI) | payer MEDICARE, BC, SELFPAY ==
[2020-03-13 12:18] VITALS: BMI 29.1
== END ==
PROVIDERS: PCP Nurse Practitioner; Referring Provider Nurse Practitioner; Visit Provider Family Medicine
DX: I87.2 Venous insufficiency (chronic) (peripheral) (principal); L97.821 Non-pressure chronic ulcer of other part of left lower leg limited to breakdown of skin; L03.116 Cellulitis of left lower limb; I89.0 Lymphedema, not elsewhere classified; L23.9 Allergic contact dermatitis, unspecified cause
CPT/HCPCS: 29580; 87070; 87075; 87077; 87147; 87186; 87205; 99214

== ENCOUNTER → 2021-06-22 13:51 | Outpatient (CLI) | payer MEDICARE, BC, SELFPAY ==
[2020-03-13 12:18] VITALS: BMI 29.1
== END ==
PROVIDERS: PCP Nurse Practitioner; Referring Provider Nurse Practitioner; Visit Provider Family Medicine
DX: I87.2 Venous insufficiency (chronic) (peripheral) (principal); L97.821 Non-pressure chronic ulcer of other part of left lower leg limited to breakdown of skin; L03.116 Cellulitis of left lower limb; I89.0 Lymphedema, not elsewhere classified; B95.7 Other staphylococcus as the cause of diseases classified elsewhere
CPT/HCPCS: 97597; 97598; 99214

== ENCOUNTER → 2021-06-25 09:53 | Outpatient (CLI) | payer MEDICARE, BC, SELFPAY ==
[2020-03-13 12:18] VITALS: BMI 29.1
== END ==
PROVIDERS: PCP Nurse Practitioner; Referring Provider Nurse Practitioner; Visit Provider Family Medicine
DX: I87.2 Venous insufficiency (chronic) (peripheral) (principal); L97.821 Non-pressure chronic ulcer of other part of left lower leg limited to breakdown of skin
CPT/HCPCS: 99213

== ENCOUNTER → 2021-07-03 11:33 | Outpatient (CLI) | payer MEDICARE, BC, SELFPAY ==
[2020-03-13 12:18] VITALS: BMI 29.1
== END ==
PROVIDERS: PCP Nurse Practitioner; Referring Provider Nurse Practitioner; Visit Provider Nurse Practitioner Family
DX: I87.2 Venous insufficiency (chronic) (peripheral) (principal); L97.821 Non-pressure chronic ulcer of other part of left lower leg limited to breakdown of skin; L03.116 Cellulitis of left lower limb; I89.0 Lymphedema, not elsewhere classified; L30.1 Dyshidrosis [pompholyx]
CPT/HCPCS: 97597; 99214

== ENCOUNTER → 2021-07-06 14:34 | Outpatient (CLI) | payer MEDICARE, BC, SELFPAY ==
[2020-03-13 12:18] VITALS: BMI 29.1
== END ==
PROVIDERS: PCP Nurse Practitioner; Referring Provider Nurse Practitioner; Visit Provider Family Medicine
DX: I87.2 Venous insufficiency (chronic) (peripheral) (principal); L97.821 Non-pressure chronic ulcer of other part of left lower leg limited to breakdown of skin
CPT/HCPCS: 29580

== ENCOUNTER → 2021-07-10 15:37 | Outpatient (CLI) | payer MEDICARE, BC, SELFPAY ==
[2020-03-13 12:18] VITALS: BMI 29.1
== END ==
PROVIDERS: PCP Nurse Practitioner; Referring Provider Nurse Practitioner; Visit Provider Nurse Practitioner Family
DX: L97.821 Non-pressure chronic ulcer of other part of left lower leg limited to breakdown of skin (principal); I87.2 Venous insufficiency (chronic) (peripheral); I89.0 Lymphedema, not elsewhere classified
CPT/HCPCS: 15271; 99213; Q4196

== ENCOUNTER → 2021-07-17 15:20 | Outpatient (CLI) | payer MEDICARE, BC, SELFPAY ==
[2020-03-13 12:18] VITALS: BMI 29.1
== END ==
PROVIDERS: PCP Nurse Practitioner; Referring Provider Nurse Practitioner; Visit Provider Nurse Practitioner Family
DX: I87.2 Venous insufficiency (chronic) (peripheral) (principal); L97.821 Non-pressure chronic ulcer of other part of left lower leg limited to breakdown of skin; I89.0 Lymphedema, not elsewhere classified
CPT/HCPCS: 29580; 99214

== ENCOUNTER → 2021-07-24 14:09 | Outpatient (CLI) | payer MEDICARE, BC, SELFPAY ==
[2020-03-13 12:18] VITALS: BMI 29.1
== END ==
PROVIDERS: PCP Nurse Practitioner; Referring Provider Nurse Practitioner; Visit Provider Family Medicine
DX: I87.2 Venous insufficiency (chronic) (peripheral) (principal); L97.821 Non-pressure chronic ulcer of other part of left lower leg limited to breakdown of skin; I89.0 Lymphedema, not elsewhere classified
CPT/HCPCS: 15271; Q4137

== ENCOUNTER → 2021-08-03 14:44 | Outpatient (CLI) | payer MEDICARE, BC, SELFPAY ==
[2020-03-13 12:18] VITALS: BMI 29.1
== END ==
PROVIDERS: PCP Nurse Practitioner; Referring Provider Nurse Practitioner; Visit Provider Family Medicine
DX: I87.2 Venous insufficiency (chronic) (peripheral) (principal); L97.821 Non-pressure chronic ulcer of other part of left lower leg limited to breakdown of skin
CPT/HCPCS: 29581

== ENCOUNTER → 2021-08-07 14:00 | Outpatient (CLI) | payer MEDICARE, BC, SELFPAY ==
[2020-03-13 12:18] VITALS: BMI 29.1
== END ==
PROVIDERS: PCP Nurse Practitioner; Referring Provider Nurse Practitioner; Visit Provider Nurse Practitioner Family
DX: I87.2 Venous insufficiency (chronic) (peripheral) (principal); L97.821 Non-pressure chronic ulcer of other part of left lower leg limited to breakdown of skin; I89.0 Lymphedema, not elsewhere classified; R60.0 Localized edema; I73.9 Peripheral vascular disease, unspecified
CPT/HCPCS: 15271; Q4101

== ENCOUNTER → 2021-08-14 15:01 | Outpatient (CLI) | payer MEDICARE, BC, SELFPAY ==
[2020-03-13 12:18] VITALS: BMI 29.1
== END ==
PROVIDERS: PCP Nurse Practitioner; Referring Provider Nurse Practitioner; Visit Provider Family Medicine
DX: L97.821 Non-pressure chronic ulcer of other part of left lower leg limited to breakdown of skin (principal); I87.2 Venous insufficiency (chronic) (peripheral); I89.0 Lymphedema, not elsewhere classified
CPT/HCPCS: 15271; Q4101

== ENCOUNTER → 2021-08-24 14:55 | Outpatient (CLI) | payer MEDICARE, BC, SELFPAY ==
[2020-03-13 12:18] VITALS: BMI 29.1
== END ==
PROVIDERS: PCP Nurse Practitioner; Referring Provider Nurse Practitioner; Visit Provider Family Medicine
DX: I87.2 Venous insufficiency (chronic) (peripheral) (principal); L97.821 Non-pressure chronic ulcer of other part of left lower leg limited to breakdown of skin
CPT/HCPCS: 29581

== ENCOUNTER → 2021-09-04 14:20 | Outpatient (CLI) | payer MEDICARE, BC, SELFPAY ==
[2020-03-13 12:18] VITALS: BMI 29.1
== END ==
PROVIDERS: PCP Nurse Practitioner; Referring Provider Nurse Practitioner; Visit Provider Nurse Practitioner Family
DX: L97.822 Non-pressure chronic ulcer of other part of left lower leg with fat layer exposed (principal); I87.2 Venous insufficiency (chronic) (peripheral); I89.0 Lymphedema, not elsewhere classified
CPT/HCPCS: 97597

== ENCOUNTER → 2021-09-07 14:40 | Outpatient (CLI) | payer MEDICARE, BC, SELFPAY ==
[2020-03-13 12:18] VITALS: BMI 29.1
== END ==
PROVIDERS: PCP Nurse Practitioner; Referring Provider Nurse Practitioner; Visit Provider Nurse Practitioner
DX: N39.0 Urinary tract infection, site not specified (principal); R41.0 Disorientation, unspecified
CPT/HCPCS: 87077; 87086; 87186

== ENCOUNTER → 2021-09-11 14:03 | Outpatient (CLI) | payer MEDICARE, BC, SELFPAY ==
[2020-03-13 12:18] VITALS: BMI 29.1
== END ==
PROVIDERS: PCP Nurse Practitioner; Referring Provider Nurse Practitioner; Visit Provider Nurse Practitioner Family
DX: L97.822 Non-pressure chronic ulcer of other part of left lower leg with fat layer exposed (principal); I87.2 Venous insufficiency (chronic) (peripheral); L03.116 Cellulitis of left lower limb; I89.0 Lymphedema, not elsewhere classified
CPT/HCPCS: 87070; 87075; 87077; 87186; 87205; 97597; 99213; 99214

== ENCOUNTER → 2021-09-17 15:31 | Outpatient (CLI) | payer MEDICARE, BC, SELFPAY ==
[2020-03-13 12:18] VITALS: BMI 29.1
== END ==
PROVIDERS: PCP Nurse Practitioner; Referring Provider Nurse Practitioner; Visit Provider Family Medicine
DX: I87.2 Venous insufficiency (chronic) (peripheral) (principal); L97.822 Non-pressure chronic ulcer of other part of left lower leg with fat layer exposed
CPT/HCPCS: 99213

== ENCOUNTER → 2021-09-23 15:00 | Outpatient (CLI) | payer MEDICARE, BC, SELFPAY ==
[2020-03-13 12:18] VITALS: BMI 29.1
== END ==
PROVIDERS: PCP Nurse Practitioner; Referring Provider Nurse Practitioner; Visit Provider Family Medicine
DX: I87.2 Venous insufficiency (chronic) (peripheral) (principal); L97.822 Non-pressure chronic ulcer of other part of left lower leg with fat layer exposed
CPT/HCPCS: 99213

== ENCOUNTER → 2022-03-12 15:24 | Outpatient (CLI) | payer MEDICARE, BC, SELFPAY ==
[2020-03-13 12:18] VITALS: BMI 29.1
[2022-03-12 17:24] LABS: COVID19 -Nasal RAPID Negative (Negative)
== END ==
PROVIDERS: PCP Nurse Practitioner; Visit Provider Specialist
DX: Z20.822 Contact with and (suspected) exposure to COVID-19 (principal); Z01.812 Encounter for preprocedural laboratory examination
CPT/HCPCS: 87635

== ENCOUNTER 2022-03-15 12:10 | Day surgery (SDC) | payer MEDICARE, BC, SELFPAY ==
[2020-03-13 12:18] VITALS: BMI 29.1
[2022-03-10 12:23] VITALS: BMI 28.5
[2022-03-15] VITALS (7 sets, daily range): BP systolic 104–130; BP diastolic 49–77; PULSE 63–78; RESP 11–16; TEMP 36.2–37; O2SAT 99–100; BMI 28.5
--- NOTE | 2022-03-15 13:04 | PM.PREOP ---
Pre-operative Note COVID-19 COVID-19 status: Negative Result date/Date tested (Pos, Neg/Pending): 03/12/22 Criteria for continued procedure: Expected advancement of disease process Interval Note History & Physical reviewed/Exam performed by Physician: Yes Changes to H&P: No
[2022-03-15] MEDS: ACETAMINOPHEN 325 MG TABLET 650 MG PO (13:23)
[2022-03-15] MEDS: LACTATED RINGERS 1,000 ML 100 ML IV (13:24)
[2022-03-15] MEDS: CEFAZOLIN 2 GM/20 ML SYRINGE IV (13:45)
--- NOTE | 2022-03-15 14:10 | SUR.OPER ---
Lithotomy on padded OR bed, head on pillow, arms secured on padded arm boards at <90 degrees abduction. Legs secured in padded yellow fins stirrups.
[2022-03-15] MEDS: BUPIVACAINE 0.5% W/ EPI (PF) 30 ML VIAL INJ (14:20)
--- NOTE | 2022-03-15 14:53 | PM.OP.1 ---
Operative Date/Time/Diagnoses Date of procedure: 03/15/22 Time of procedure: 14:53 Pre-op diagnosis: Vaginal wall prolapse post hysterectomy Post-op diagnosis: same Procedure & Clinicians Procedure: Colpocleisis Same procedure as scheduled: Yes Indications: Patient with symptomatic vaginal wall prolapse post hysterectomy Surgeon: Edna Delacruz Click Yes if Unassisted: Yes Anesthesia Type: Sedation and Local Operative Notes Findings: Vaginal wall prolapse post hysterectomy. Normal exam under anesthesia. Closure Type: primary Specimen(s): none sent Estimated Blood Loss (mL): 30 Blood products transfused: none Procedure in detail: Patient was brought to the operating room where she was in a supine position in [facility] and underwent sedation for anesthetic. She was prepped and draped in the usual sterile fashion. Her bladder was drained. Antibiotics, 2 g of Ancef, were in prior to beginning of the case. Warming was in place. Pulsatile stockings were in place. A check system was reviewed with staff in the room prior to beginning the case. Area on anterior and posterior wall of the prolapse were marked with a marking pen and injected with a dilute solution of half percent Marcaine with epinephrine. The skin was incised with a scalpel and undermined with and removed removed with Metzenbaum scissors. Bleeding was controlled with Bovie. A small area of entry into the peritoneum was repaired with 2 0 Vicryl suture. 2-0 Vicryl suture was used to close anterior to posterior on the left side creating a tunnel from the vaginal apex to the external area. 2- 0 Vicryl suture interrupted was placed from anterior posterior ear at the top of the vagina. The right side was closed from anterior to posterior followed by front to back externally fully selling the front to the back side of the vagina with tunnels on each side. The vaginal incision was closed from anterior to posterior fully closing off the vagina except for tunnels on each side. Counts of instruments and sponges were correct. Patient went to recovery room in good condition. Complications: none Post-operative Condition: stable Disposition: same day surgery Plan for aftercare: Home when awake and stable
--- NOTE | 2022-03-15 15:19 | SUR.PHASEI ---
denies discomfort, frequently verbalizes appreciation for staff. Enjoy the sylvia hugger. Stable, anxious to see her daughter
== END 2022-03-15 16:20 | disposition home or self-care (01) ==
PROVIDERS: PCP Nurse Practitioner; Referring Provider Specialist; Visit Provider Specialist
PROC: (CPT 57120; principal; 2022-03-15 13:15)
DX: N99.3 Prolapse of vaginal vault after hysterectomy (principal); N39.46 Mixed incontinence
CPT/HCPCS: 57120; J0690; J2704; J3010

== ENCOUNTER 2022-07-13 10:30 | Outpatient (RCR) | payer MEDICARE, BC, SELFPAY ==
[2020-03-13 12:18] VITALS: BMI 29.1
--- NOTE | 2022-04-21 13:45 | PT.OPPOC ---
Physical, Occupational & Speech Therapy At [facility] Current Diagnoses Lymphedema, not elsewhere classified (04/21/22) Localized edema (04/21/22) Personal history of diseases of the skin and subcutaneous tissue (04/21/22) Visit Care Team Role Provider Type AYAKA Kennedy Attending Provider Advanced Foundry Melt Supervisor Family Provider Primary Care Provider Referring Provider Specialty: [facility] Practice Address: [address] [place] [address], [facility] Email: [email or web address] Plan Of Care PT-OP-T Assessment and Plan Start: 04/21/22 12:54 Freq: Status: Active Protocol: Document 04/21/22 13:45 AW (Rec: 04/26/22 13:08 AW [id number]) Physical Therapy Assessment Rehab Potential Rehabilitation Potential Good Evaluation Complexity Number of Personal Factors/Comorbidities 3 or More Number of Body Systems Impaired 3 Clinical Presentation at Evaluation Evolving Impairments Impairments Edema,Functional Mobility,Gait ,Pain,Soft Tissue Mobility, Strength,Transfers Goals Three Impairment unable to ambulate household distances Pastoral Ministries Professor Goal (LTG) Pt will ambulate 50 feet with FWW SBA to improve household mobility. LTG Duration 07/22/22 Two Impairment transfers Short Term Goal (STG) Pt will stand from standard height chair and complete 5 Time Sit to clinical administrator 18 seconds or less with or without use of upper extremities. STG Duration 06/02/22 Fci Goal (LTG) Pt will transfer wheelchair <> treatment table SBA with FWW. LTG Duration 07/22/22 One Impairment lymphedema BLE Short Term Goal (STG) Pt to be educated in all aspects of lymphedema care, including skin care, manual lymphatic drainage, exercises, and compression. STG Duration 06/02/22 Fci Goal (LTG) Pt to demonstrate decrease and stabilization of lymphedema ( no increase >1 cm over the course of 1 week) and be independent with all aspects of lymphedema care including compression or alternative such as pneumatic pump. LTG Duration 07/22/22 Assessment Summary Assessment Jennyfer is a 76 yo woman with long-standing history of bilateral lower extremity lymphedema. She had a fall earlier this year and sustained pelvic fractures. She went to SNF rehab for 1 month. She then had surgery for pelvic organ prolapse due to worsening incontinence. Since her surgery, lymphedema has become more severe and function-limiting. She was able to ambulate in and out of her house with FWW after rehab but now requires a wheelchair for mobility. Jennyfer is expected to benefit from skilled physical therapy to reduce her swelling and improve her mobility in order to maintain her independent living. Physical Therapy Plan Frequency and Duration Frequency of Treatment 2-3x/week Duration of Treatment 3 months Plan of Care Start Date 04/21/22 Plan of Care End Date 07/22/22 Therapeutic Interventions Therapeutic Interventions Gait Training,Home Exercise Program,Lymphedema Management, Manual Therapy,Patient/ Caregiver Education,Self-Care/ Home Management,Soft Tissue Mobilization,Therapeutic Activities,Therapeutic Exercises Modalities Vasopneumatic Devices Next Visit Focus/Plan Next Note Type Treatment Note Next Visit Plan Initiate MLD. Consider pneumatic pump RLE. Assess pt' s compression garments. Sequential lymphedema exercises as tolerated Plan of Care Dates Plan of Care Start Date 04/21/22 Plan of Care End Date 07/22/22 Electronically Signed by: Marsha Martin PT 04/26/22 [id number] If you are in agreement with this Plan of Care, please return a signed and dated copy. I have reviewed this Plan of Care and certify that the skilled therapy services above are required to meet the patient?s needs. Physician Signature Date Printed Name and Credentials Clinical Instructor Signature Printed Name and Credentials
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
--- NOTE | 2022-04-27 12:40 | PT.OTN ---
Current Diagnoses Lymphedema, not elsewhere classified (04/27/22) Localized edema (04/27/22) Personal history of diseases of the skin and subcutaneous tissue (04/27/22) Physical Therapy Treatment Note PT-OP-A Visit Information Start: 04/21/22 12:54 Freq: Status: Active Protocol: Document 04/27/22 10:45 AW (Rec: 04/27/22 12:39 AW [id number]) Out-Patient Physical Therapy Visit Information Visit Information Visit Type Treatment Note Visit Start Time 09:45 Visit Stop Time 10:45 Total Visit Minutes 60 Visit Number 2 Number of WEB CONTENT MANAGER Visits 0 Evaluation Information Evaluation Date 04/21/22 PT-OP-B Current Condition Start: 04/21/22 12:54 Freq: Status: Active Protocol: Document 04/21/22 13:45 AW (Rec: 04/21/22 13:56 AW [id number]) Current Condition History of Current Condition Onset Date acute on chronic Current Complaints bilateral lower extremity swelling History of Current Condition 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 She had swelling that began in the late and was placed on diuretics. Lymphedema in [facility] was diagnosed in early . She has had vascular surgery on her legs multiple times. She was treated for lymphedema starting in ~2004. Treatment was successful and she had good reduction. She ended up wearing compression garments regularly - both knee high and thigh high. She was using Unna boots until her several years ago. In January 2022, she fell and had pelvic fractures. Went to SNF rehab >1 month in [place]. Currently mobilizing with wheelchair. Has grab bars everywhere and uses them to transfer. She lives independently at [facility] in [place]. She was having worsening incontinence after her pelvic fractures and ended up having surgery to address pelvic organ prolapse. Leg swelling and pain have been markedly worse since then. She was recently measured for new compression garments at [place] [facility] Has been using open toe compression inconsistently. She thinks she has a home compression/ pneumatic pump but needs to find it. Prior Treatments and Tests SNF rehab after fall/pelvic fractures earlier this year. Lymphedema therapy >10 years ago. Developmental History Developmental History PMH includes R breast and skin cancer. Pt has had sentinel lymph node biopsy RUE but no swelling. Treatment Goals Patient/Caregiver Goals Pt hopes to be able to transfer independently and get back to walking with FWW. Prior Functional Status Baseline Function- ADL's Modified Independent Baseline Function- Mobility Modified Independent Baseline Function- Gait Able to ambulate with FWW Current Functional Impairments (Reported) Functional Limitations- Mobility/Gait Difficulty standing without grab bars, needs assist for transfers if nothing to hold on to. PT-OP-C Subjective Start: 04/21/22 12:54 Freq: Status: Active Protocol: Document 04/27/22 10:45 AW (Rec: 04/27/22 12:39 AW [id number]) OP-PT Subjective Patient Comments Patient Comments Pt is very grateful to be seen today. States she has been wearing compression intermittently and did a little bit of household walking with FWW over the weekend. She has been trying to do LE lymph exercises at home. PT-OP-D Balance Start: 04/21/22 12:54 Freq: Status: Active Protocol: Document 04/21/22 13:45 AW (Rec: 04/26/22 12:29 AW [id number]) OP-PT Balance Assessment Sitting Balance Static Sitting Balance Ability Fair Dynamic Sitting Balance Ability Fair Standing Balance Static Standing Balance Ability Poor Dynamic Standing Balance Ability Poor Vazquez Fall Scale Copyright Permission PT-OP-G Mobility & Gait Start: 04/21/22 12:54 Freq: Status: Active Protocol: Document 04/21/22 13:45 AW (Rec: 04/26/22 12:29 AW [id number]) OP Mobility Evaluation Bed Mobility Supine to and from Sit Min to mod assist. Transfers Sit to Stand Min assist Bed to Chair Transfers Mod assist w/c <> tx mat with no AD OP Gait Assessment Comments Gait Comments Legs are too heavy and painful for ambulation trial at this time. PT-OP-J Posture/Palpation/Skin Start: 04/21/22 12:54 Freq: Status: Active Protocol: Document 04/21/22 13:45 AW (Rec: 04/26/22 12:26 AW [id number]) Skin Assessment Edema Assessment BLE Edema Appearance Discolored,Puffy,Shiny,Taut, Weeping Subjective Edema Description Pain,Burning,Tightness Comments BLE edema significant for considerable hemosiderin staining in gaiter distribution and underlying fibrosis especially in the distal posterior compartment. PT-OP-M Strength Start: 04/21/22 12:54 Freq: Status: Active Protocol: Document 04/21/22 13:45 AW (Rec: 04/26/22 12:42 AW [id number]) Trunk Strength Trunk Manual Muscle Testing Core Stabilization Decreased control of trunk in sitting and during transfers. Hip Strength Hip Manual Muscle Testing Right Flexion (L2) 3- Fair- Left Flexion (L2) 3 Fair Knee Strength Knee Manual Muscle Testing bilat Flexion (S2) 3 Fair Extension (L3) 3+ Fair+ Ankle/Foot Strength Ankle and Foot Manual Muscle Testing Right Dorsiflexion (L4) 3 Fair Plantarflexion (S1) 3- Fair- Left Dorsiflexion (L4) 4 Good Plantarflexion (S1) 3+ Fair+ PT-OP-N Lymphedema Start: 04/21/22 12:54 Freq: Status: Active Protocol: Document 04/27/22 10:45 AW (Rec: 04/27/22 12:39 AW [id number]) Lymphedema Measurements Lower Extremity Circumference Measurements Right Affected Post-Pump MT Heads 23.5 cm Mid-foot 24.5 cm Medial Malleolus 28.8 cm 10 cm From Medial Malleolus 25 cm 20 cm From Medial Malleolus 34.3 cm 30 cm From Medial Malleolus 45.5 cm 40 cm From Medial Malleolus 48 cm 50 cm From Medial Malleolus 51.5 cm 60 cm From Medial Malleolus 52.8 cm - measured post-pump Left Affected MT Heads 22 cm Mid-foot 23.1 cm Medial Malleolus 30 cm 10 cm From Medial Malleolus 25.8 cm 20 cm From Medial Malleolus 37.8 cm 30 cm From Medial Malleolus 44.2 cm 40 cm From Medial Malleolus 47.6 cm 50 cm From Medial Malleolus 50 cm 60 cm From Medial Malleolus 53.6 cm - no pump LLE Right Affected MT Heads 23.6 cm Mid-foot 24.6 cm Medial Malleolus 29.6 cm 10 cm From Medial Malleolus 25.6 cm 20 cm From Medial Malleolus 35.5 cm 30 cm From Medial Malleolus 46.3 cm 40 cm From Medial Malleolus 47.2 cm 50 cm From Medial Malleolus 52.2 cm 60 cm From Medial Malleolus 52.9 cm - measured pre-pump PT-OP-Q Treatments Start: 04/21/22 12:54 Freq: Status: Active Protocol: Document 04/27/22 10:45 AW (Rec: 04/27/22 12:39 AW [id number]) Lymphedema Treatment Manual Lymphatic Drainage Location BLE Duration 30 min Comments Treated RLE briefly before applying pneumatic pump. Treated LLE while pump on RLE. Focused on AIA pathways. Lymphedema Wrapping Body Location BLE Materials Tubigrip G Other Applied tubigrip BLE foot to knee after MLD. Sequential Lymphedema Exercises Comments Not done due to time constraints. Counseled pt that it is especially important to do sequential exercises while wearing compression. PT-OP-R Modalities Start: 04/21/22 12:54 Freq: Status: Active Protocol: Document 04/27/22 10:45 AW (Rec: 04/27/22 12:40 AW [id number]) Compression Pump Treatment Treatment Location RLE Pressure Amount (mmHg) (mmHG) 60 Inflation Time (Seconds) 45 Deflation Time (Seconds) 15 Treatment Duration (minutes) 30 Treatment Tolerance Good PT-OP-T Assessment and Plan Start: 04/21/22 12:54 Freq: Status: Active Protocol: Document 04/27/22 10:45 AW (Rec: 04/27/22 12:39 AW [id number]) Physical Therapy Assessment Impairments Impairments Edema,Functional Mobility,Gait ,Pain,Soft Tissue Mobility, Strength,Transfers Goals Three Impairment unable to ambulate household distances District Manager [employer] Goal (LTG) Pt will ambulate 50 feet with FWW SBA to improve household mobility. LTG Duration 07/22/22 Two Impairment transfers Short Term Goal (STG) Pt will stand from standard height chair and complete 5 Time Sit to leasing consultant 18 seconds or less with or without use of upper extremities. STG Duration 06/02/22 District Manager [employer] Goal (LTG) Pt will transfer wheelchair <> treatment table SBA with FWW. LTG Duration 07/22/22 One Impairment lymphedema BLE Short Term Goal (STG) Pt to be educated in all aspects of lymphedema care, including skin care, manual lymphatic drainage, exercises, and compression. STG Duration 06/02/22 District Manager [employer] Goal (LTG) Pt to demonstrate decrease and stabilization of lymphedema ( no increase >1 cm over the course of 1 week) and be independent with all aspects of lymphedema care including compression or alternative such as pneumatic pump. LTG Duration 07/22/22 Assessment Summary Assessment Jennyfer tolerated MLD BLE and pneumatic pump RLE well. She has not yet found her pumps. She believes they are in storage and will need family assist to locate them. With limited time today, was unable to bandage but did trial Tubigrip size G up to knee and encouraged pt to wear up to 24 hours as tolerated. Physical Therapy Plan Frequency and Duration Frequency of Treatment 2-3x/week Duration of Treatment 3 months Plan of Care Start Date 04/21/22 Plan of Care End Date 07/22/22 Therapeutic Interventions Therapeutic Interventions Gait Training,Home Exercise Program,Lymphedema Management, Manual Therapy,Patient/ Caregiver Education,Self-Care/ Home Management,Soft Tissue Mobilization,Therapeutic Activities,Therapeutic Exercises Modalities Vasopneumatic Devices Next Visit Focus/Plan Next Note Type Treatment Note Next Visit Plan Assess response to last tx. Assess pt's compression garments. Sequential lymphedema exercises as tolerated
--- NOTE | 2022-05-04 16:57 | PT.OTN ---
Current Diagnoses Lymphedema, not elsewhere classified (05/04/22) Localized edema (05/04/22) Personal history of diseases of the skin and subcutaneous tissue (05/04/22) Physical Therapy Treatment Note PT-OP-A Visit Information Start: 04/21/22 12:54 Freq: Status: Active Protocol: Document 05/04/22 16:37 SAK (Rec: 05/04/22 16:57 SAK [id number]) Out-Patient Physical Therapy Visit Information Visit Information Visit Type Treatment Note Visit Start Time 14:30 Visit Stop Time 15:05 Total Visit Minutes 95 Visit Number 3 Number of RECYCLING CREW SUPERVISOR Visits 0 Evaluation Information Evaluation Date 04/21/22 PT-OP-B Current Condition Start: 04/21/22 12:54 Freq: Status: Active Protocol: Document 04/21/22 13:45 AW (Rec: 04/21/22 13:56 AW [id number]) Current Condition History of Current Condition Onset Date acute on chronic Current Complaints bilateral lower extremity swelling History of Current Condition 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 She had swelling that began in the late and was placed on diuretics. Lymphedema in [facility] [place] was diagnosed in early . She has had vascular surgery on her legs multiple times. She was treated for lymphedema starting in ~2004. Treatment was successful and she had good reduction. She ended up wearing compression garments regularly - both knee high and thigh high. She was using Unna boots until her several years ago. In January 2022, she fell and had pelvic fractures. Went to SNF rehab >1 month in [place]. Currently mobilizing with wheelchair. Has grab bars everywhere and uses them to transfer. She lives independently at [facility] in [place]. She was having worsening incontinence after her pelvic fractures and ended up having surgery to address pelvic organ prolapse. Leg swelling and pain have been markedly worse since then. She was recently measured for new compression garments at [place] [facility]. Has been using open toe compression inconsistently. She thinks she has a home compression/ pneumatic pump but needs to find it. Prior Treatments and Tests SNF rehab after fall/pelvic fractures earlier this year. Lymphedema therapy >10 years ago. Developmental History Developmental History PMH includes R breast and skin cancer. Pt has had sentinel lymph node biopsy RUE but no swelling. Treatment Goals Patient/Caregiver Goals Pt hopes to be able to transfer independently and get back to walking with FWW. Prior Functional Status Baseline Function- ADL's Modified Independent Baseline Function- Mobility Modified Independent Baseline Function- Gait Able to ambulate with FWW Current Functional Impairments (Reported) Functional Limitations- Mobility/Gait Difficulty standing without grab bars, needs assist for transfers if nothing to hold on to. PT-OP-C Subjective Start: 04/21/22 12:54 Freq: Status: Active Protocol: Document 05/04/22 16:37 SAK (Rec: 05/04/22 16:57 SAK [id number]) OP-PT Subjective Patient Comments Patient Comments Patient reports she didn't put compression on today be ause she was coming to PT and yuniel matute would have to take it off. Found compression pump but hasn't used yet. Hasn't been applying lotion to her legs PT-OP-D Balance Start: 04/21/22 12:54 Freq: Status: Active Protocol: Document 04/21/22 13:45 AW (Rec: 04/26/22 12:29 AW [id number]) OP-PT Balance Assessment Sitting Balance Static Sitting Balance Ability Fair Dynamic Sitting Balance Ability Fair Standing Balance Static Standing Balance Ability Poor Dynamic Standing Balance Ability Poor Vazquez Fall Scale Copyright Permission PT-OP-G Mobility & Gait Start: 04/21/22 12:54 Freq: Status: Active Protocol: Document 04/21/22 13:45 AW (Rec: 04/26/22 12:29 AW [id number]) OP Mobility Evaluation Bed Mobility Supine to and from Sit Min to mod assist. Transfers Sit to Stand Min assist Bed to Chair Transfers Mod assist w/c <> tx mat with no AD OP Gait Assessment Comments Gait Comments Legs are too heavy and painful for ambulation trial at this time. PT-OP-J Posture/Palpation/Skin Start: 04/21/22 12:54 Freq: Status: Active Protocol: Document 04/21/22 13:45 AW (Rec: 04/26/22 12:26 AW [id number]) Skin Assessment Edema Assessment BLE Edema Appearance Discolored,Puffy,Shiny,Taut, Weeping Subjective Edema Description Pain,Burning,Tightness Comments BLE edema significant for considerable hemosiderin staining in gaiter distribution and underlying fibrosis especially in the distal posterior compartment. PT-OP-M Strength Start: 04/21/22 12:54 Freq: Status: Active Protocol: Document 04/21/22 13:45 AW (Rec: 04/26/22 12:42 AW [id number]) Trunk Strength Trunk Manual Muscle Testing Core Stabilization Decreased control of trunk in sitting and during transfers. Hip Strength Hip Manual Muscle Testing Right Flexion (L2) 3- Fair- Left Flexion (L2) 3 Fair Knee Strength Knee Manual Muscle Testing bilat Flexion (S2) 3 Fair Extension (L3) 3+ Fair+ Ankle/Foot Strength Ankle and Foot Manual Muscle Testing Right Dorsiflexion (L4) 3 Fair Plantarflexion (S1) 3- Fair- Left Dorsiflexion (L4) 4 Good Plantarflexion (S1) 3+ Fair+ PT-OP-N Lymphedema Start: 04/21/22 12:54 Freq: Status: Active Protocol: Document 05/04/22 16:37 [facility] (Rec: 05/04/22 16:57 [facility] [id number]) Lymphedema Measurements Lower Extremity Circumference Measurements Left Affected MT Heads 22.2 cm Mid-foot 23.5 cm Medial Malleolus 27 cm 10 cm From Medial Malleolus 25.2 cm 20 cm From Medial Malleolus 37 cm 30 cm From Medial Malleolus 44.8 cm 40 cm From Medial Malleolus 46.8 cm 50 cm From Medial Malleolus 50.8 cm 60 cm From Medial Malleolus 53.5 cm Right Affected MT Heads 23.6 cm Mid-foot 24 cm Medial Malleolus 28.9 cm 10 cm From Medial Malleolus 24.8 cm 20 cm From Medial Malleolus 38 cm 30 cm From Medial Malleolus 47.7 cm 40 cm From Medial Malleolus 48.8 cm 50 cm From Medial Malleolus 54.5 cm 60 cm From Medial Malleolus 55.7 cm - measured pre-pump PT-OP-Q Treatments Start: 04/21/22 12:54 Freq: Status: Active Protocol: Document 05/04/22 16:37 [facility] (Rec: 05/04/22 16:57 [facility] [id number]) Therapeutic Activity Therapeutic Activity Transfer sit to and from supine Comments min assist each direction on treatment table Gait Training Gait Activity 2 Description stairs Device Used 8 box, 4 box Level of Assistance mod, chair one side, walker other side Surface firm Distance/Duration 2 steps down Treatment Focus getting down from stuck hi-lo table 1 Description forward Device Used FWW Level of Assistance CG to min assist Surface firm Distance/Duration 8ft, 6 ft Treatment Focus increasing mobility, safety Lymphedema Treatment Manual Lymphatic Drainage Location BLE Duration 30 min Comments Treated RLE briefly before applying pneumatic pump. Treated LLE while pump on RLE. Focused on AIA pathways. Lymphedema Wrapping Materials left LE: compression stocking toes to knee right LE: Artiflex and Comprilan toes to knee Other Phytoplex lotion applied to yemi LE's, skin care with low pH lotion application encouraged for home care Sequential Lymphedema Exercises Comments HEP Compression Garment Assessment Compression Garment Assessment Details good fit of compression stocking left LE. Patient reports able to self-don in bed. Other Other Lymphopress pump brought in by patient for evaluation; applied to left LE for 15 min with pressure adjusted to 60 mm Hg maxium, good feedback response from patient PT-OP-R Modalities Start: 04/21/22 12:54 Freq: Status: Active Protocol: Document 05/04/22 16:37 [facility] (Rec: 05/04/22 16:57 [facility] [id number]) Compression Pump Treatment Treatment Location RLE Pressure Amount (mmHg) (mmHG) 60 Inflation Time (Seconds) 45 Deflation Time (Seconds) 15 Treatment Duration (minutes) 30 Treatment Tolerance Good PT-OP-T Assessment and Plan Start: 04/21/22 12:54 Freq: Status: Active Protocol: Document 05/04/22 16:37 [facility] (Rec: 05/04/22 16:57 [facility] [id number]) Physical Therapy Assessment Impairments Impairments Edema,Functional Mobility,Gait ,Pain,Soft Tissue Mobility, Strength,Transfers Goals Three Impairment unable to ambulate household distances Executive Creative Director Goal (LTG) Pt will ambulate 50 feet with FWW SBA to improve household mobility. LTG Duration 07/22/22 Two Impairment transfers Short Term Goal (STG) Pt will stand from standard height chair and complete 5 Time Sit to insurance consultant 18 seconds or less with or without use of upper extremities. STG Duration 06/02/22 [facility] Goal (LTG) Pt will transfer wheelchair <> treatment table SBA with FWW. LTG Duration 07/22/22 One Impairment lymphedema BLE Short Term Goal (STG) Pt to be educated in all aspects of lymphedema care, including skin care, manual lymphatic drainage, exercises, and compression. STG Duration 06/02/22 Executive Creative Director Goal (LTG) Pt to demonstrate decrease and stabilization of lymphedema ( no increase >1 cm over the course of 1 week) and be independent with all aspects of lymphedema care including compression or alternative such as pneumatic pump. LTG Duration 07/22/22 Physical Therapy Plan Frequency and Duration Frequency of Treatment 2-3x/week Duration of Treatment 3 months Plan of Care Start Date 04/21/22 Plan of Care End Date 07/22/22 Therapeutic Interventions Therapeutic Interventions Gait Training,Home Exercise Program,Lymphedema Management, Manual Therapy,Patient/ Caregiver Education,Self-Care/ Home Management,Soft Tissue Mobilization,Therapeutic Activities,Therapeutic Exercises Modalities Vasopneumatic Devices Next Visit Focus/Plan Next Note Type Treatment Note Next Visit Plan Assess response to last tx including compression bandaging. Issue black foam if compression stockings continue to irritate anterior ankle. MLD and use of compression pump. Ther ex, ther act, gait training.
--- NOTE | 2022-05-10 17:29 | PT.OTN ---
Current Diagnoses Lymphedema, not elsewhere classified (05/10/22) Localized edema (05/10/22) Personal history of diseases of the skin and subcutaneous tissue (05/10/22) Physical Therapy Treatment Note PT-OP-A Visit Information Start: 04/21/22 12:54 Freq: Status: Active Protocol: Document 05/10/22 09:48 SAK (Rec: 05/10/22 10:29 SAK [id number]) Out-Patient Physical Therapy Visit Information Visit Information Visit Type Treatment Note Visit Start Time 09:45 Visit Stop Time 10:40 Total Visit Minutes 55 Visit Number 4 Number of SPIRAL TUBE WINDER Visits 0 Evaluation Information Evaluation Date 04/21/22 PT-OP-B Current Condition Start: 04/21/22 12:54 Freq: Status: Active Protocol: Document 04/21/22 13:45 AW (Rec: 04/21/22 13:56 AW [id number]) Current Condition History of Current Condition Onset Date acute on chronic Current Complaints bilateral lower extremity swelling History of Current Condition 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 She had swelling that began in the late and was placed on diuretics. Lymphedema in [facility] was diagnosed in early . She has had vascular surgery on her legs multiple times. She was treated for lymphedema starting in ~2004. Treatment was successful and she had good reduction. She ended up wearing compression garments regularly - both knee high and thigh high. She was using Unna boots until her several years ago. In January 2022, she fell and had pelvic fractures. Went to SNF rehab >1 month in [place]. Currently mobilizing with wheelchair. Has grab bars everywhere and uses them to transfer. She lives independently at [facility] in [place]. She was having worsening incontinence after her pelvic fractures and ended up having surgery to address pelvic organ prolapse. Leg swelling and pain have been markedly worse since then. She was recently measured for new compression garments at [place] [facility] Has been using open toe compression inconsistently. She thinks she has a home compression/ pneumatic pump but needs to find it. Prior Treatments and Tests SNF rehab after fall/pelvic fractures earlier this year. Lymphedema therapy >10 years ago. Developmental History Developmental History PMH includes R breast and skin cancer. Pt has had sentinel lymph node biopsy RUE but no swelling. Treatment Goals Patient/Caregiver Goals Pt hopes to be able to transfer independently and get back to walking with FWW. Prior Functional Status Baseline Function- ADL's Modified Independent Baseline Function- Mobility Modified Independent Baseline Function- Gait Able to ambulate with FWW Current Functional Impairments (Reported) Functional Limitations- Mobility/Gait Difficulty standing without grab bars, needs assist for transfers if nothing to hold on to. PT-OP-C Subjective Start: 04/21/22 12:54 Freq: Status: Active Protocol: Document 05/10/22 09:48 SAK (Rec: 05/10/22 10:29 SAK [id number]) OP-PT Subjective Patient Comments Patient Comments Patient states she was able to leave bandaging on for 24 hours but it was painful; lymphedema decreased some but poorly tolerated. Brings pump again for more instruction, willing to try to use independently, daughter unable to come for training PT-OP-D Balance Start: 04/21/22 12:54 Freq: Status: Active Protocol: Document 04/21/22 13:45 AW (Rec: 04/26/22 12:29 AW [id number]) OP-PT Balance Assessment Sitting Balance Static Sitting Balance Ability Fair Dynamic Sitting Balance Ability Fair Standing Balance Static Standing Balance Ability Poor Dynamic Standing Balance Ability Poor Vazquez Fall Scale Copyright Permission PT-OP-G Mobility & Gait Start: 04/21/22 12:54 Freq: Status: Active Protocol: Document 04/21/22 13:45 AW (Rec: 04/26/22 12:29 AW [id number]) OP Mobility Evaluation Bed Mobility Supine to and from Sit Min to mod assist. Transfers Sit to Stand Min assist Bed to Chair Transfers Mod assist w/c <> tx mat with no AD OP Gait Assessment Comments Gait Comments Legs are too heavy and painful for ambulation trial at this time. PT-OP-J Posture/Palpation/Skin Start: 04/21/22 12:54 Freq: Status: Active Protocol: Document 04/21/22 13:45 AW (Rec: 04/26/22 12:26 AW [id number]) Skin Assessment Edema Assessment BLE Edema Appearance Discolored,Puffy,Shiny,Taut, Weeping Subjective Edema Description Pain,Burning,Tightness Comments BLE edema significant for considerable hemosiderin staining in gaiter distribution and underlying fibrosis especially in the distal posterior compartment. PT-OP-M Strength Start: 04/21/22 12:54 Freq: Status: Active Protocol: Document 04/21/22 13:45 AW (Rec: 04/26/22 12:42 AW [id number]) Trunk Strength Trunk Manual Muscle Testing Core Stabilization Decreased control of trunk in sitting and during transfers. Hip Strength Hip Manual Muscle Testing Right Flexion (L2) 3- Fair- Left Flexion (L2) 3 Fair Knee Strength Knee Manual Muscle Testing bilat Flexion (S2) 3 Fair Extension (L3) 3+ Fair+ Ankle/Foot Strength Ankle and Foot Manual Muscle Testing Right Dorsiflexion (L4) 3 Fair Plantarflexion (S1) 3- Fair- Left Dorsiflexion (L4) 4 Good Plantarflexion (S1) 3+ Fair+ PT-OP-N Lymphedema Start: 04/21/22 12:54 Freq: Status: Active Protocol: Document 05/10/22 09:48 SAK (Rec: 05/10/22 10:29 [facility] [id number]) Lymphedema Measurements Lower Extremity Circumference Measurements Right Affected MT Heads 23.4 cm Mid-foot 23.9 cm Medial Malleolus 29.2 cm 10 cm From Medial Malleolus 25.5 cm 20 cm From Medial Malleolus 35 cm 30 cm From Medial Malleolus 45.1 cm 40 cm From Medial Malleolus 49.1 cm 50 cm From Medial Malleolus 55.2 cm 60 cm From Medial Malleolus 56.1 cm - measured pre-pump, unable to remeasure after pump today due to time constraints PT-OP-Q Treatments Start: 04/21/22 12:54 Freq: Status: Active Protocol: Document 05/10/22 09:48 SAK (Rec: 05/10/22 10:29 SAK [id number]) Lymphedema Treatment Manual Lymphatic Drainage Location BLE Duration 30 min Comments Treated RLE briefly before applying pneumatic pump. Treated LLE while pump on RLE. Focused on AIA pathways. Lymphedema Wrapping Body Location BLE Materials compression stockings toes to knees Other Phytoplex lotion applied to yemi LE's, skin care with low pH lotion application encouraged for home care Sequential Lymphedema Exercises Location L LE Comments during pump to right PT-OP-R Modalities Start: 04/21/22 12:54 Freq: Status: Active Protocol: Document 05/10/22 09:48 SAK (Rec: 05/10/22 10:29 SAK [id number]) Compression Pump Treatment Treatment Location RLE Pressure Amount (mmHg) (mmHG) 60 Inflation Time (Seconds) 45 Deflation Time (Seconds) 15 Treatment Duration (minutes) 30 Treatment Tolerance Good PT-OP-T Assessment and Plan Start: 04/21/22 12:54 Freq: Status: Active Protocol: Document 05/10/22 09:48 [facility] (Rec: 05/10/22 10:29 [facility] [id number]) Physical Therapy Assessment Impairments Impairments Edema,Functional Mobility,Gait ,Pain,Soft Tissue Mobility, Strength,Transfers Goals Three Impairment unable to ambulate household distances Sales Expert Home Theater Goal (LTG) Pt will ambulate 50 feet with FWW SBA to improve household mobility. LTG Duration 07/22/22 Two Impairment transfers Short Term Goal (STG) Pt will stand from standard height chair and complete 5 Time Sit to director of financial planning 18 seconds or less with or without use of upper extremities. STG Duration 06/02/22 Sales Expert Home Theater Goal (LTG) Pt will transfer wheelchair <> treatment table SBA with FWW. LTG Duration 07/22/22 One Impairment lymphedema BLE Short Term Goal (STG) Pt to be educated in all aspects of lymphedema care, including skin care, manual lymphatic drainage, exercises, and compression. STG Duration 06/02/22 Residential Goal (LTG) Pt to demonstrate decrease and stabilization of lymphedema ( no increase >1 cm over the course of 1 week) and be independent with all aspects of lymphedema care including compression or alternative such as pneumatic pump. LTG Duration 07/22/22 Assessment Summary Assessment Demonstrating improving understanding of use of pump, would be helpful to have patient's daughter come. Next session will have patient apply and operate pump independently as able. Physical Therapy Plan Frequency and Duration Frequency of Treatment 2-3x/week Duration of Treatment 3 months Plan of Care Start Date 04/21/22 Plan of Care End Date 07/22/22 Therapeutic Interventions Therapeutic Interventions Gait Training,Home Exercise Program,Lymphedema Management, Manual Therapy,Patient/ Caregiver Education,Self-Care/ Home Management,Soft Tissue Mobilization,Therapeutic Activities,Therapeutic Exercises Modalities Vasopneumatic Devices Next Visit Focus/Plan Next Note Type Treatment Note Next Visit Plan Circumferential measurements, continue lymphedema management . Assess fit of new compression stockings when obtained. Have patient do as much of pump application as possible with PT guidance.
--- NOTE | 2022-05-17 17:10 | PT.OTN ---
Current Diagnoses Lymphedema, not elsewhere classified (05/17/22) Localized edema (05/17/22) Personal history of diseases of the skin and subcutaneous tissue (05/17/22) Physical Therapy Treatment Note PT-OP-A Visit Information Start: 04/21/22 12:54 Freq: Status: Active Protocol: Document 05/17/22 11:08 SAK (Rec: 05/17/22 11:16 SAK [id number]) Out-Patient Physical Therapy Visit Information Visit Information Visit Type Treatment Note Visit Start Time 09:49 Visit Stop Time 11:00 Total Visit Minutes 71 Visit Number 5 Number of KITCHEN WORKER Visits 0 Evaluation Information Evaluation Date 04/21/22 PT-OP-B Current Condition Start: 04/21/22 12:54 Freq: Status: Active Protocol: Document 04/21/22 13:45 AW (Rec: 04/21/22 13:56 AW [id number]) Current Condition History of Current Condition Onset Date acute on chronic Current Complaints bilateral lower extremity swelling History of Current Condition 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 She had swelling that began in the late and was placed on diuretics. Lymphedema in [facility] was diagnosed in early . She has had vascular surgery on her legs multiple times. She was treated for lymphedema starting in ~2004. Treatment was successful and she had good reduction. She ended up wearing compression garments regularly - both knee high and thigh high. She was using Unna boots until her several years ago. In January 2022, she fell and had pelvic fractures. Went to SNF rehab >1 month in [place]. Currently mobilizing with wheelchair. Has grab bars everywhere and uses them to transfer. She lives independently at [facility] in [place]. She was having worsening incontinence after her pelvic fractures and ended up having surgery to address pelvic organ prolapse. Leg swelling and pain have been markedly worse since then. She was recently measured for new compression garments at [place] [facility]. Has been using open toe compression inconsistently. She thinks she has a home compression/ pneumatic pump but needs to find it. Prior Treatments and Tests SNF rehab after fall/pelvic fractures earlier this year. Lymphedema therapy >10 years ago. Developmental History Developmental History PMH includes R breast and skin cancer. Pt has had sentinel lymph node biopsy RUE but no swelling. Treatment Goals Patient/Caregiver Goals Pt hopes to be able to transfer independently and get back to walking with FWW. Prior Functional Status Baseline Function- ADL's Modified Independent Baseline Function- Mobility Modified Independent Baseline Function- Gait Able to ambulate with FWW Current Functional Impairments (Reported) Functional Limitations- Mobility/Gait Difficulty standing without grab bars, needs assist for transfers if nothing to hold on to. PT-OP-C Subjective Start: 04/21/22 12:54 Freq: Status: Active Protocol: Document 05/17/22 11:08 SAK (Rec: 05/17/22 11:16 SAK [id number]) OP-PT Subjective Patient Comments Patient Comments Daughter Lakeisha present for PT session. Brings Lymphapress. Daughter and patient reporting decreasing lymphedema, Lakeisha to leave Lymphapress all set-up for patient in living room so all she has to do is don and push button. PT-OP-D Balance Start: 04/21/22 12:54 Freq: Status: Active Protocol: Document 04/21/22 13:45 AW (Rec: 04/26/22 12:29 AW [id number]) OP-PT Balance Assessment Sitting Balance Static Sitting Balance Ability Fair Dynamic Sitting Balance Ability Fair Standing Balance Static Standing Balance Ability Poor Dynamic Standing Balance Ability Poor Vazquez Fall Scale Copyright Permission PT-OP-G Mobility & Gait Start: 04/21/22 12:54 Freq: Status: Active Protocol: Document 04/21/22 13:45 AW (Rec: 04/26/22 12:29 AW [id number]) OP Mobility Evaluation Bed Mobility Supine to and from Sit Min to mod assist. Transfers Sit to Stand Min assist Bed to Chair Transfers Mod assist w/c <> tx mat with no AD OP Gait Assessment Comments Gait Comments Legs are too heavy and painful for ambulation trial at this time. PT-OP-J Posture/Palpation/Skin Start: 04/21/22 12:54 Freq: Status: Active Protocol: Document 04/21/22 13:45 AW (Rec: 04/26/22 12:26 AW [id number]) Skin Assessment Edema Assessment BLE Edema Appearance Discolored,Puffy,Shiny,Taut, Weeping Subjective Edema Description Pain,Burning,Tightness Comments BLE edema significant for considerable hemosiderin staining in gaiter distribution and underlying fibrosis especially in the distal posterior compartment. PT-OP-M Strength Start: 04/21/22 12:54 Freq: Status: Active Protocol: Document 04/21/22 13:45 AW (Rec: 04/26/22 12:42 AW [id number]) Trunk Strength Trunk Manual Muscle Testing Core Stabilization Decreased control of trunk in sitting and during transfers. Hip Strength Hip Manual Muscle Testing Right Flexion (L2) 3- Fair- Left Flexion (L2) 3 Fair Knee Strength Knee Manual Muscle Testing bilat Flexion (S2) 3 Fair Extension (L3) 3+ Fair+ Ankle/Foot Strength Ankle and Foot Manual Muscle Testing Right Dorsiflexion (L4) 3 Fair Plantarflexion (S1) 3- Fair- Left Dorsiflexion (L4) 4 Good Plantarflexion (S1) 3+ Fair+ PT-OP-N Lymphedema Start: 04/21/22 12:54 Freq: Status: Active Protocol: Document 05/17/22 11:08 [facility] (Rec: 05/17/22 11:16 [facility] [id number]) Lymphedema Measurements Lower Extremity Circumference Measurements Right Affected MT Heads 23.8 cm Mid-foot 24 cm Medial Malleolus 28.7 cm 10 cm From Medial Malleolus 25.4 cm 20 cm From Medial Malleolus 35.3 cm 30 cm From Medial Malleolus 45.1 cm 40 cm From Medial Malleolus 45.7 cm 50 cm From Medial Malleolus 52 cm 60 cm From Medial Malleolus 54.5 cm Knee Joint 44.6 cm - measured pre-pump, unable to remeasure after pump today due to time constraints PT-OP-Q Treatments Start: 04/21/22 12:54 Freq: Status: Active Protocol: Document 05/17/22 11:08 [facility] (Rec: 05/17/22 11:16 [facility] [id number]) Lymphedema Treatment Manual Lymphatic Drainage Location BLE Duration 30 min Comments Treated RLE briefly before applying pneumatic pump. Treated LLE while pump on RLE. Focused on AIA pathways. Lymphedema Wrapping Body Location BLE Materials compression stockings toes to knees Other Phytoplex lotion applied to yemi LE's, skin care with low pH lotion application encouraged for home care Sequential Lymphedema Exercises Comments Sci-Fit x 7 min L1 from seated in w/c after Lymphapress, manual treatment, patient and daughter education. Other Other self-care: worked on donning and doffing compression pump legs yemi prior to and after pumping. Patient needed SB to moderate assist and cues. States home set-up is easier. Recommended thigh-high compression stocking for right LE to further facilitate lymphatic flow as well as support her knee. PT-OP-R Modalities Start: 04/21/22 12:54 Freq: Status: Active Protocol: Document 05/17/22 11:08 [facility] (Rec: 05/17/22 11:16 [facility] [id number]) Compression Pump Treatment Treatment Location RLE Pressure Amount (mmHg) (mmHG) 60 Inflation Time (Seconds) 45 Deflation Time (Seconds) 15 Treatment Duration (minutes) 30 Treatment Tolerance Good Treatment Comments yemi LEs with patient's Lymphapress PT-OP-T Assessment and Plan Start: 04/21/22 12:54 Freq: Status: Active Protocol: Document 05/17/22 11:08 [facility] (Rec: 05/17/22 11:16 [facility] [id number]) Physical Therapy Assessment Impairments Impairments Edema,Functional Mobility,Gait ,Pain,Soft Tissue Mobility, Strength,Transfers Goals Three Impairment unable to ambulate household distances Statistical Secretary Goal (LTG) Pt will ambulate 50 feet with FWW SBA to improve household mobility. LTG Duration 07/22/22 Two Impairment transfers Short Term Goal (STG) Pt will stand from standard height chair and complete 5 Time Sit to semiconductor processing group leader 18 seconds or less with or without use of upper extremities. STG Duration 06/02/22 Statistical Secretary Goal (LTG) Pt will transfer wheelchair <> treatment table SBA with FWW. LTG Duration 07/22/22 One Impairment lymphedema BLE Short Term Goal (STG) Pt to be educated in all aspects of lymphedema care, including skin care, manual lymphatic drainage, exercises, and compression. STG Duration 06/02/22 Nursing Home Goal (LTG) Pt to demonstrate decrease and stabilization of lymphedema ( no increase >1 cm over the course of 1 week) and be independent with all aspects of lymphedema care including compression or alternative such as pneumatic pump. LTG Duration 07/22/22 Assessment Summary Assessment As noted above patient unable to don and doff lymphapress leg components independently though reporting better set-up at home, but also needed moderate verbal cues. Daughter to work on with patient. Receptive to recommendation for thigh-high compression stocking for better lymphedema management as well as support for knee. Patient c/o some right knee pain during all mobility skills and with Sci-Fit. Physical Therapy Plan Frequency and Duration Frequency of Treatment 2-3x/week Duration of Treatment 3 months Plan of Care Start Date 04/21/22 Plan of Care End Date 07/22/22 Therapeutic Interventions Therapeutic Interventions Gait Training,Home Exercise Program,Lymphedema Management, Manual Therapy,Patient/ Caregiver Education,Self-Care/ Home Management,Soft Tissue Mobilization,Therapeutic Activities,Therapeutic Exercises Modalities Vasopneumatic Devices Next Visit Focus/Plan Next Note Type Treatment Note Next Visit Plan Circumferential measurements, continue lymphedema management , including increased emphasis on strengthening and mobility component of treatment if patient able to use Lymphapress at home and obtains appropriate compression.
--- NOTE | 2022-05-19 13:26 | PT-OP ANOTE ---
schedule conflict; daughter made appointment for patient but patient not available
--- NOTE | 2022-06-10 10:01 | PT-OP ANOTE ---
Pt did not show scheduled appointment. Called pt who stated she talked to someone and indicated she would like to cancel all June appointments as she is getting injections in her knees and would like to focus on that for now. She has been able to use her pumps at home. She stated she would like to resume PT in July which was communicated to the administrative assistant front desk for scheduling.
--- NOTE | 2022-07-13 17:21 | PT.OPPOC ---
Physical, Occupational & Speech Therapy At [facility] Current Diagnoses Lymphedema, not elsewhere classified (07/13/22) Localized edema (07/13/22) Personal history of diseases of the skin and subcutaneous tissue (07/13/22) Visit Care Team Role Provider Type AYAKA Kennedy Attending Provider Advanced Global Mobility Specialist Family Provider Primary Care Provider Referring Provider Specialty: Family Practice Address: [address] [place] [address], [facility] Email: [email or web address] Plan Of Care PT-OP-T Assessment and Plan Start: 04/21/22 12:54 Freq: Status: Active Protocol: Document 07/13/22 12:20 AW (Rec: 07/13/22 13:02 AW [id number]) Physical Therapy Assessment Rehab Potential Rehabilitation Potential Good Evaluation Complexity Number of Personal Factors/Comorbidities 3 or More Number of Body Systems Impaired 3 Clinical Presentation at Evaluation Evolving Impairments Impairments Edema,Functional Mobility,Gait ,Pain,Soft Tissue Mobility, Strength,Transfers Goals Three Impairment unable to ambulate household distances Dining Room Maid Goal (LTG) Pt will ambulate 50 feet with FWW SBA to improve household mobility. 07/13/22 - Pt walked 100 feet in 2 minutes today with FWW SBA. Progress goal to 150 feet in two minutes with FWW SBA. LTG Duration 10/13/22 Two Impairment transfers Short Term Goal (STG) Pt will stand from standard height chair and complete 5 Time Sit to cellophane bag machine operator 18 seconds or less with or without use of upper extremities. 07/13/22 Not assessed today due to time constraints. Plan to assess next visit. STG Duration 08/24/22 Correction Goal (LTG) Pt will transfer wheelchair <> treatment table SBA with FWW. 07/13/22 - Pt requires CGA/min A today but refuses walker. Suspect pt could transfer SBA with FWW and will continue toward goal. LTG Duration 10/13/22 One Impairment lymphedema BLE Short Term Goal (STG) Pt to be educated in all aspects of lymphedema care, including skin care, manual lymphatic drainage, exercises, and compression. ONGOING EDUCATION STG Duration 06/02/22 Correction Goal (LTG) Pt to demonstrate decrease and stabilization of lymphedema ( no increase >1 cm over the course of 1 week) and be independent with all aspects of lymphedema care including compression or alternative such as pneumatic pump. 07/13/22 - Poor reduction overall due to lack of adherence to pneumatic pump and compression. Pt needs continued education and reinforcement. LTG Duration 10/13/22 Progress Towards Goals Progress Towards Goals Progressing Toward Goals,Slow Progress due to Attendance Issues,Slow Progress due to Noncompliance,Slow Progress - Other Progress Comments Attendance was affected by knee pain for which pt is now recieiving injections from ortho. Pt has progressed slowly due to attendance and poor adherence to schedule for pneumatic pump and daily compression. Pt would benefit from continued education and treatment to reduce her BLE edema and improve her mobility . Assessment Summary Assessment Pt has struggled with use of her personal pneumatic pump and compression stockings. Measurements today are quite variable with noted increase in swelling at right knee and left ankle. Trialed use of foam behind medial malleoli today and applied Tubigrip size G for light compression . Encouraged pt to bring her compression garments to next session for education on donning with possible need for device to support. Extending plan of care today to continue care and continue toward goals. Physical Therapy Plan Frequency and Duration Frequency of Treatment 2-3x/week Plan of Care Start Date 07/13/22 Plan of Care End Date 10/13/22 Therapeutic Interventions Therapeutic Interventions Gait Training,Home Exercise Program,Lymphedema Management, Manual Therapy,Patient/ Caregiver Education,Self-Care/ Home Management,Soft Tissue Mobilization,Therapeutic Activities,Therapeutic Exercises Modalities Vasopneumatic Devices Next Visit Focus/Plan Next Note Type Treatment Note Next Visit Plan Circumferential measurements, continue lymphedema management , including increased emphasis on strengthening and mobility component of treatment if patient able to use Lymphapress at home and obtains appropriate compression. Plan of Care Dates Plan of Care Start Date 07/13/22 Plan of Care End Date 10/13/22 Electronically Signed by: Marsha Martin PT 07/13/22 4037 If you are in agreement with this Plan of Care, please return a signed and dated copy. I have reviewed this Plan of Care and certify that the skilled therapy services above are required to meet the patient?s needs. Physician Signature Date Printed Name and Credentials Clinical Instructor Signature Printed Name and Credentials
--- NOTE | 2022-07-13 17:21 | PT.OTN ---
Current Diagnoses Lymphedema, not elsewhere classified (07/13/22) Localized edema (07/13/22) Personal history of diseases of the skin and subcutaneous tissue (07/13/22) Physical Therapy Treatment Note PT-OP-A Visit Information Start: 04/21/22 12:54 Freq: Status: Active Protocol: Document 07/13/22 12:20 AW (Rec: 07/13/22 13:02 AW [id number]) Out-Patient Physical Therapy Visit Information Visit Information Visit Type Re-Evaluation Visit Start Time 10:50 Visit Stop Time 12:08 Total Visit Minutes 78 Visit Number 6 Evaluation Information Evaluation Date 04/21/22 PT-OP-B Current Condition Start: 04/21/22 12:54 Freq: Status: Active Protocol: Document 07/13/22 12:20 AW (Rec: 07/13/22 13:02 AW [id number]) Current Condition History of Current Condition Onset Date acute on chronic Current Complaints bilateral lower extremity swelling History of Current Condition UPDATE 07/13/22: Pt has her lymphapress pump set up at home but reports using it only twice weekly. She has Mediven knee high compression garments but struggles to don them. 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 She had swelling that began in the late s and was placed on diuretics. Lymphedema in [facility] was diagnosed in early . She has had vascular surgery on her legs multiple times. She was treated for lymphedema starting in ~2004. Treatment was successful and she had good reduction. She ended up wearing compression garments regularly - both knee high and thigh high. She was using Unna boots until her several years ago. In January 2022, she fell and had pelvic fractures. Went to SNF rehab >1 month in [place]. Currently mobilizing with wheelchair. Has grab bars everywhere and uses them to transfer. She lives independently at [facility] in [place]. She was having worsening incontinence after her pelvic fractures and ended up having surgery to address pelvic organ prolapse. Leg swelling and pain have been markedly worse since then. She was recently measured for new compression garments at [place] [facility] Has been using open toe compression inconsistently. She thinks she has a home compression/ pneumatic pump but needs to find it. Prior Treatments and Tests SNF rehab after fall/pelvic fractures earlier this year. Lymphedema therapy >10 years ago. Developmental History Developmental History PMH includes R breast and skin cancer. Pt has had sentinel lymph node biopsy RUE but no swelling. Treatment Goals Patient/Caregiver Goals Pt hopes to be able to transfer independently and get back to walking with FWW. Prior Functional Status Baseline Function- ADL's Modified Independent Baseline Function- Mobility Modified Independent Baseline Function- Gait Able to ambulate with FWW Current Functional Impairments (Reported) Functional Limitations- Mobility/Gait Difficulty standing without grab bars, needs assist for transfers if nothing to hold on to. PT-OP-C Subjective Start: 04/21/22 12:54 Freq: Status: Active Protocol: Document 07/13/22 12:20 AW (Rec: 07/13/22 13:02 AW [id number]) OP-PT Subjective Patient Comments Patient Comments Pt thinks her swelling is stable or maybe a little bit better. PT-OP-D Balance Start: 04/21/22 12:54 Freq: Status: Active Protocol: Document 04/21/22 13:45 AW (Rec: 04/26/22 12:29 AW [id number]) OP-PT Balance Assessment Sitting Balance Static Sitting Balance Ability Fair Dynamic Sitting Balance Ability Fair Standing Balance Static Standing Balance Ability Poor Dynamic Standing Balance Ability Poor Vazquez Fall Scale Copyright Permission PT-OP-G Mobility & Gait Start: 04/21/22 12:54 Freq: Status: Active Protocol: Document 04/21/22 13:45 AW (Rec: 04/26/22 12:29 AW [id number]) OP Mobility Evaluation Bed Mobility Supine to and from Sit Min to mod assist. Transfers Sit to Stand Min assist Bed to Chair Transfers Mod assist w/c <> tx mat with no AD OP Gait Assessment Comments Gait Comments Legs are too heavy and painful for ambulation trial at this time. PT-OP-J Posture/Palpation/Skin Start: 04/21/22 12:54 Freq: Status: Active Protocol: Document 04/21/22 13:45 AW (Rec: 04/26/22 12:26 AW [id number]) Skin Assessment Edema Assessment BLE Edema Appearance Discolored,Puffy,Shiny,Taut, Weeping Subjective Edema Description Pain,Burning,Tightness Comments BLE edema significant for considerable hemosiderin staining in gaiter distribution and underlying fibrosis especially in the distal posterior compartment. PT-OP-M Strength Start: 04/21/22 12:54 Freq: Status: Active Protocol: Document 04/21/22 13:45 AW (Rec: 04/26/22 12:42 AW [id number]) Trunk Strength Trunk Manual Muscle Testing Core Stabilization Decreased control of trunk in sitting and during transfers. Hip Strength Hip Manual Muscle Testing Right Flexion (L2) 3- Fair- Left Flexion (L2) 3 Fair Knee Strength Knee Manual Muscle Testing bilat Flexion (S2) 3 Fair Extension (L3) 3+ Fair+ Ankle/Foot Strength Ankle and Foot Manual Muscle Testing Right Dorsiflexion (L4) 3 Fair Plantarflexion (S1) 3- Fair- Left Dorsiflexion (L4) 4 Good Plantarflexion (S1) 3+ Fair+ PT-OP-N Lymphedema Start: 04/21/22 12:54 Freq: Status: Active Protocol: Document 07/13/22 12:20 AW (Rec: 07/13/22 13:02 AW [id number]) Lymphedema Measurements Lower Extremity Circumference Measurements Left Affected MT Heads 21.2 cm Mid-foot 23.1 cm Medial Malleolus 31 cm 10 cm From Medial Malleolus 23.2 cm 20 cm From Medial Malleolus 31.2 cm 30 cm From Medial Malleolus 41 cm 40 cm From Medial Malleolus 41 cm 50 cm From Medial Malleolus 46.2 cm 60 cm From Medial Malleolus 48.2 cm Knee Joint 41.8 cm Right Affected MT Heads 21.5 cm Mid-foot 23.7 cm Medial Malleolus 28.9 cm 10 cm From Medial Malleolus 24.6 cm 20 cm From Medial Malleolus 35.8 cm 30 cm From Medial Malleolus 43.4 cm 40 cm From Medial Malleolus 44.6 cm 50 cm From Medial Malleolus 48.7 cm 60 cm From Medial Malleolus 49.5 cm Knee Joint 46 cm - measured pre-pump, unable to remeasure after pump today due to time constraints PT-OP-Q Treatments Start: 04/21/22 12:54 Freq: Status: Active Protocol: Document 07/13/22 12:20 AW (Rec: 07/13/22 13:02 AW [id number]) Therapeutic Activity Therapeutic Activity Transfer sit to and from supine Comments min assist each direction on treatment table Gait Training Gait Activity 1 Description forward Device Used FWW Level of Assistance SBA Surface firm Distance/Duration 111'/2 minutes Treatment Focus increasing mobility, safety Lymphedema Treatment Manual Lymphatic Drainage Location BLE Duration 30 min Comments Treated RLE briefly before applying pneumatic pump. Treated LLE while pump on RLE. Focused on AIA pathways. Lymphedema Wrapping Body Location BLE Materials Tubigrip size G applied toes to upper thigh with black foam secured behind medial malleolus bilaterally Other Phytoplex lotion applied to yemi LE's, skin care with low pH lotion application encouraged for home care Sequential Lymphedema Exercises Comments diaphrag breathing throughout treatment, ankle pumps and hip rotation in sitting Other Other Continued to reinforce need for daily pump and compression to reduce lymphedema and improve mobility. PT-OP-R Modalities Start: 04/21/22 12:54 Freq: Status: Active Protocol: Document 07/13/22 12:20 AW (Rec: 07/13/22 13:02 AW [id number]) Compression Pump Treatment Treatment Location RLE Pressure Amount (mmHg) (mmHG) 60 Inflation Time (Seconds) 45 Deflation Time (Seconds) 15 Treatment Duration (minutes) 30 Treatment Tolerance Good Treatment Comments RLE while completing MLD LLE PT-OP-T Assessment and Plan Start: 04/21/22 12:54 Freq: Status: Active Protocol: Document 07/13/22 12:20 AW (Rec: 07/13/22 13:02 AW [id number]) Physical Therapy Assessment Rehab Potential Rehabilitation Potential Good Evaluation Complexity Number of Personal Factors/Comorbidities 3 or More Number of Body Systems Impaired 3 Clinical Presentation at Evaluation Evolving Impairments Impairments Edema,Functional Mobility,Gait ,Pain,Soft Tissue Mobility, Strength,Transfers Goals Three Impairment unable to ambulate household distances Detention Goal (LTG) Pt will ambulate 50 feet with FWW SBA to improve household mobility. 07/13/22 - Pt walked 100 feet in 2 minutes today with FWW SBA. Progress goal to 150 feet in two minutes with FWW SBA. LTG Duration 10/13/22 Two Impairment transfers Short Term Goal (STG) Pt will stand from standard height chair and complete 5 Time Sit to border inspector 18 seconds or less with or without use of upper extremities. 07/13/22 Not assessed today due to time constraints. Plan to assess next visit. STG Duration 08/24/22 Detention Goal (LTG) Pt will transfer wheelchair <> treatment table SBA with FWW. 07/13/22 - Pt requires CGA/min A today but refuses walker. Suspect pt could transfer SBA with FWW and will continue toward goal. LTG Duration 10/13/22 One Impairment lymphedema BLE Short Term Goal (STG) Pt to be educated in all aspects of lymphedema care, including skin care, manual lymphatic drainage, exercises, and compression. ONGOING EDUCATION STG Duration 06/02/22 Collections Agent Goal (LTG) Pt to demonstrate decrease and stabilization of lymphedema ( no increase >1 cm over the course of 1 week) and be independent with all aspects of lymphedema care including compression or alternative such as pneumatic pump. 07/13/22 - Poor reduction overall due to lack of adherence to pneumatic pump and compression. Pt needs continued education and reinforcement. LTG Duration 10/13/22 Progress Towards Goals Progress Towards Goals Progressing Toward Goals,Slow Progress due to Attendance Issues,Slow Progress due to Noncompliance,Slow Progress - Other Progress Comments Attendance was affected by knee pain for which pt is now recieiving injections from ortho. Pt has progressed slowly due to attendance and poor adherence to schedule for pneumatic pump and daily compression. Pt would benefit from continued education and treatment to reduce her BLE edema and improve her mobility . Assessment Summary Assessment Pt has struggled with use of her personal pneumatic pump and compression stockings. Measurements today are quite variable with noted increase in swelling at right knee and left ankle. Trialed use of foam behind medial malleoli today and applied Tubigrip size G for light compression . Encouraged pt to bring her compression garments to next session for education on donning with possible need for device to support. Extending plan of care today to continue care and continue toward goals. Physical Therapy Plan Frequency and Duration Frequency of Treatment 2-3x/week Plan of Care Start Date 07/13/22 Plan of Care End Date 10/13/22 Therapeutic Interventions Therapeutic Interventions Gait Training,Home Exercise Program,Lymphedema Management, Manual Therapy,Patient/ Caregiver Education,Self-Care/ Home Management,Soft Tissue Mobilization,Therapeutic Activities,Therapeutic Exercises Modalities Vasopneumatic Devices Next Visit Focus/Plan Next Note Type Treatment Note Next Visit Plan Circumferential measurements, continue lymphedema management , including increased emphasis on strengthening and mobility component of treatment if patient able to use Lymphapress at home and obtains appropriate compression.
--- NOTE | 2022-07-28 10:59 | PT.OPDS ---
Current Diagnoses Lymphedema, not elsewhere classified (07/13/22) Localized edema (07/13/22) Personal history of diseases of the skin and subcutaneous tissue (07/13/22) Visit Care Team Role Provider Type AYAKA Kennedy Attending Provider Advanced Human Relations Teacher Family Provider Primary Care Provider Referring Provider Specialty: Family Practice Address: [address] [place] [address], [id number] Email: [email or web address] Visit Number Visit Number 6 Discharge Summary PT-OP-B Current Condition Start: 04/21/22 12:54 Freq: Status: Active Protocol: Document 07/13/22 12:20 AW (Rec: 07/13/22 13:02 AW [id number]) Current Condition History of Current Condition Onset Date acute on chronic Current Complaints bilateral lower extremity swelling History of Current Condition UPDATE 07/13/22: Pt has her lymphapress pump set up at home but reports using it only twice weekly. She has Mediven knee high compression garments but struggles to don them. 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 She had swelling that began in the late s and was placed on diuretics. Lymphedema in [place] was diagnosed in early s. She has had vascular surgery on her legs multiple times. She was treated for lymphedema starting in ~2004. Treatment was successful and she had good reduction. She ended up wearing compression garments regularly - both knee high and thigh high. She was using Unna boots until her several years ago. In January 2022, she fell and had pelvic fractures. Went to SNF rehab >1 month in [place]. Currently mobilizing with wheelchair. Has grab bars everywhere and uses them to transfer. She lives independently at [facility] in [place]. She was having worsening incontinence after her pelvic fractures and ended up having surgery to address pelvic organ prolapse. Leg swelling and pain have been markedly worse since then. She was recently measured for new compression garments at [place] [facility] Has been using open toe compression inconsistently. She thinks she has a home compression/ pneumatic pump but needs to find it. Prior Treatments and Tests SNF rehab after fall/pelvic fractures earlier this year. Lymphedema therapy >10 years ago. Developmental History Developmental History PMH includes R breast and skin cancer. Pt has had sentinel lymph node biopsy RUE but no swelling. Treatment Goals Patient/Caregiver Goals Pt hopes to be able to transfer independently and get back to walking with FWW. Prior Functional Status Baseline Function- ADL's Modified Independent Baseline Function- Mobility Modified Independent Baseline Function- Gait Able to ambulate with FWW Current Functional Impairments (Reported) Functional Limitations- Mobility/Gait Difficulty standing without grab bars, needs assist for transfers if nothing to hold on to. PT-OP-C Subjective Start: 04/21/22 12:54 Freq: Status: Active Protocol: Document 07/13/22 12:20 AW (Rec: 07/13/22 13:02 AW [id number]) OP-PT Subjective Patient Comments Patient Comments Pt thinks her swelling is stable or maybe a little bit better. PT-OP-D Balance Start: 04/21/22 12:54 Freq: Status: Active Protocol: Document 04/21/22 13:45 AW (Rec: 04/26/22 12:29 AW [id number]) OP-PT Balance Assessment Sitting Balance Static Sitting Balance Ability Fair Dynamic Sitting Balance Ability Fair Standing Balance Static Standing Balance Ability Poor Dynamic Standing Balance Ability Poor Vazquez Fall Scale Copyright Permission PT-OP-G Mobility & Gait Start: 04/21/22 12:54 Freq: Status: Active Protocol: Document 04/21/22 13:45 AW (Rec: 04/26/22 12:29 AW [id number]) OP Mobility Evaluation Bed Mobility Supine to and from Sit Min to mod assist. Transfers Sit to Stand Min assist Bed to Chair Transfers Mod assist w/c <> tx mat with no AD OP Gait Assessment Comments Gait Comments Legs are too heavy and painful for ambulation trial at this time. PT-OP-J Posture/Palpation/Skin Start: 04/21/22 12:54 Freq: Status: Active Protocol: Document 04/21/22 13:45 AW (Rec: 04/26/22 12:26 AW [id number]) Skin Assessment Edema Assessment BLE Edema Appearance Discolored,Puffy,Shiny,Taut, Weeping Subjective Edema Description Pain,Burning,Tightness Comments BLE edema significant for considerable hemosiderin staining in gaiter distribution and underlying fibrosis especially in the distal posterior compartment. PT-OP-M Strength Start: 04/21/22 12:54 Freq: Status: Active Protocol: Document 04/21/22 13:45 AW (Rec: 04/26/22 12:42 AW [id number]) Trunk Strength Trunk Manual Muscle Testing Core Stabilization Decreased control of trunk in sitting and during transfers. Hip Strength Hip Manual Muscle Testing Right Flexion (L2) 3- Fair- Left Flexion (L2) 3 Fair Knee Strength Knee Manual Muscle Testing bilat Flexion (S2) 3 Fair Extension (L3) 3+ Fair+ Ankle/Foot Strength Ankle and Foot Manual Muscle Testing Right Dorsiflexion (L4) 3 Fair Plantarflexion (S1) 3- Fair- Left Dorsiflexion (L4) 4 Good Plantarflexion (S1) 3+ Fair+ PT-OP-N Lymphedema Start: 04/21/22 12:54 Freq: Status: Active Protocol: Document 07/13/22 12:20 AW (Rec: 07/13/22 13:02 AW [id number]) Lymphedema Measurements Lower Extremity Circumference Measurements Left Affected MT Heads 21.2 cm Mid-foot 23.1 cm Medial Malleolus 31 cm 10 cm From Medial Malleolus 23.2 cm 20 cm From Medial Malleolus 31.2 cm 30 cm From Medial Malleolus 41 cm 40 cm From Medial Malleolus 41 cm 50 cm From Medial Malleolus 46.2 cm 60 cm From Medial Malleolus 48.2 cm Knee Joint 41.8 cm Right Affected MT Heads 21.5 cm Mid-foot 23.7 cm Medial Malleolus 28.9 cm 10 cm From Medial Malleolus 24.6 cm 20 cm From Medial Malleolus 35.8 cm 30 cm From Medial Malleolus 43.4 cm 40 cm From Medial Malleolus 44.6 cm 50 cm From Medial Malleolus 48.7 cm 60 cm From Medial Malleolus 49.5 cm Knee Joint 46 cm - measured pre-pump, unable to remeasure after pump today due to time constraints PT-OP-T Assessment and Plan Start: 04/21/22 12:54 Freq: Status: Active Protocol: Document 07/28/22 10:55 AW (Rec: 07/28/22 10:58 AW [id number]) Physical Therapy Plan Discharge Physical Therapy Discharge Reasons Patient Request Discharge Comments Jennyfer no-showed her appointment today. This PT called the phone on file which was her daughter's phone. Daughter, Rossana, states Jennyfer is refusing to come to therapy at all and would like to cancel all remaining appointments. At last visit, Jennyfer had achieved some reduction in her swelling . Per daughter's report, pt is using her lymphapress compression pump at home very regularly. Pt's daughter understands her mom will need a new referral if she wishes to return to therapy. She is discharged from this plan of care.
== END 2022-08-03 11:29 | disposition home or self-care (01) ==
LOC: PHYS 10:30
PROVIDERS: Family Provider Nurse Practitioner; PCP Nurse Practitioner; Referring Provider Nurse Practitioner; Visit Provider Nurse Practitioner
DX: I89.0 Lymphedema, not elsewhere classified (principal); R60.0 Localized edema; Z87.2 Personal history of diseases of the skin and subcutaneous tissue
CPT/HCPCS: 29581; 97016; 97110; 97116; 97140; 97163; 97530; 97535

== ENCOUNTER → 2022-09-13 16:34 | Outpatient (CLI) | payer MEDICARE, BC, SELFPAY ==
[2022-09-06 16:37] VITALS: BMI 29.1
[2022-09-13 19:06] LABS: Alanine Aminotransferase 13 IU/L (<35); Albumin 3.8 g/dL (3.5-5.0); Albumin Globulin Ratio 1.4 (1.0-2.8); Alkaline Phosphatase 77 U/L (38-126); Aspartate Aminotransferase 19 IU/L (14-36); BUN Creatinine Ratio 23.7 (6-22); Bilirubin Total 0.5 mg/dL (0.2-1.3); Blood Urea Nitrogen 14 mg/dL (7-17); Calcium 8.8 mg/dL (8.4-10.2); Carbon Dioxide 25 mmol/L (22-32); Chloride 104 mmol/L (98-107); Estimated Glomerular Filt Rate > 60 mL/min (>60); Globulin 2.8 g/dL (1.7-4.1); Glucose 115 mg/dL (80-110); HEMOLYSIS < 15 (0-50); Sodium 136 mmol/L (137-145); Total Protein 6.6 g/dL (6.3-8.2)
[2022-09-13 19:23] LABS: Free T3, Triiodothyronine Free 2.85 pg/mL (2.77-5.27)
[2022-09-13 19:36] LABS: Thyroid Stimulating Hormone 2.82 uIU/mL (0.47-4.68)
[2022-09-14 02:39] LABS: Cholesterol 186 mg/dL (140-199); HDL Cholesterol 65 mg/dL (40-60); LDL Cholesterol Calculated 96 mg/dL (<100); Triglycerides 123 mg/dL (35-150)
== END ==
PROVIDERS: Family Provider Nurse Practitioner; PCP Nurse Practitioner; Visit Provider Nurse Practitioner
DX: C50.919 Malignant neoplasm of unspecified site of unspecified female breast (principal); F32.9 Major depressive disorder, single episode, unspecified; F41.9 Anxiety disorder, unspecified; I10 Essential (primary) hypertension; M85.80 Other specified disorders of bone density and structure, unspecified site; Z79.899 Other long term (current) drug therapy
CPT/HCPCS: 80053; 80061; 84439; 84443; 84481

== ENCOUNTER → 2023-03-23 15:10 | Outpatient (CLI) | payer MEDICARE, BC, SELFPAY ==
[2022-09-06 16:37] VITALS: BMI 29.1
== END ==
PROVIDERS: Family Provider Nurse Practitioner; PCP Nurse Practitioner; Visit Provider Nurse Practitioner
DX: I89.0 Lymphedema, not elsewhere classified (principal)
CPT/HCPCS: 87070; 87075; 87205

== ENCOUNTER → 2023-03-23 15:41 | Outpatient (CLI) | payer MEDICARE, BC, SELFPAY ==
[2022-09-06 16:37] VITALS: BMI 29.1
[2023-03-23 17:14] LABS: Add Manual Diff / Slide Review NO; Basophils Absolute Auto 0 /uL (0-100); Basophils Percent Auto 0.4 % (0-2); Eosinophils Absolute Auto 200 /uL (0-450); Eosinophils Percent Auto 3.3 % (2-4); Hematocrit 35.5 % (36-46); Hemoglobin 11.9 g/dL (12.0-16.0); Lymphocytes Absolute Auto 1500 /uL (1100-4500); Lymphocytes Percent Auto 25.4 % (25-40); Mean Corpuscular HGB Conc 33.4 % (30-36); Mean Corpuscular Hemoglobin 27.5 PG (26-34); Mean Corpuscular Volume 82.4 fL (80-100); Monocytes Absolute Auto 600 /uL (0-900); Monocytes Percent Auto 9.6 % (3-14); Neutrophils Absolute Auto 3600 /uL (1500-7000); Neutrophils Percent Auto 61.3 % (50-75); Platelet Count 146 X10^3/uL (150-400); Red Blood Cell Count 4.31 X10^6/uL (4.0-5.2); Red Cell Distribution Width 15.4 % (11.6-14.8); White Blood Cell Count 5.9 X10^3/uL (4.5-11.0)
[2023-03-23 17:31] LABS: Alanine Aminotransferase 16 IU/L (<35); Albumin Globulin Ratio 1.1 (1.0-2.8); Alkaline Phosphatase 77 U/L (38-126); Aspartate Aminotransferase 25 IU/L (14-36); Blood Urea Nitrogen 14 mg/dL (7-17); Calcium 9.2 mg/dL (8.4-10.2); Carbon Dioxide 26 mmol/L (22-32); Chloride 103 mmol/L (98-107); Estimated Glomerular Filt Rate > 60 mL/min (>60); Globulin 3.7 g/dL (1.7-4.1); Glucose 85 mg/dL (80-110); HEMOLYSIS 29 (0-50); Potassium 3.7 mmol/L (3.4-5.1); Sodium 137 mmol/L (137-145); Total Protein 7.7 g/dL (6.3-8.2)
== END ==
PROVIDERS: Family Provider Nurse Practitioner; PCP Nurse Practitioner; Referring Provider Nurse Practitioner; Visit Provider Nurse Practitioner
DX: B99.9 Unspecified infectious disease (principal); M79.89 Other specified soft tissue disorders; I89.0 Lymphedema, not elsewhere classified
CPT/HCPCS: 36415; 80053; 85025; 87070; 87075; 87077; 87147; 87186; 87205

== ENCOUNTER → 2023-03-24 10:05 | Outpatient (CLI) | payer MEDICARE, BC, SELFPAY ==
[2022-09-06 16:37] VITALS: BMI 29.1
== END ==
PROVIDERS: Family Provider Nurse Practitioner; PCP Nurse Practitioner; Referring Provider Nurse Practitioner; Visit Provider Surgery
DX: I89.0 Lymphedema, not elsewhere classified (principal); L03.115 Cellulitis of right lower limb; I73.9 Peripheral vascular disease, unspecified; L97.812 Non-pressure chronic ulcer of other part of right lower leg with fat layer exposed; L97.822 Non-pressure chronic ulcer of other part of left lower leg with fat layer exposed; M79.604 Pain in right leg; M79.605 Pain in left leg; R60.0 Localized edema
CPT/HCPCS: 97597; 99213; 99214

== ENCOUNTER → 2023-03-28 13:15 | Outpatient (CLI) | payer MEDICARE, BC, SELFPAY ==
[2022-09-06 16:37] VITALS: BMI 29.1
== END ==
PROVIDERS: Family Provider Nurse Practitioner; PCP Nurse Practitioner; Referring Provider Nurse Practitioner; Visit Provider Surgery
DX: I89.0 Lymphedema, not elsewhere classified (principal); L97.812 Non-pressure chronic ulcer of other part of right lower leg with fat layer exposed; M79.605 Pain in left leg
CPT/HCPCS: 99213

== ENCOUNTER → 2023-03-31 10:07 | Outpatient (CLI) | payer MEDICARE, BC, SELFPAY ==
[2022-09-06 16:37] VITALS: BMI 29.1
== END ==
PROVIDERS: Family Provider Nurse Practitioner; PCP Nurse Practitioner; Referring Provider Nurse Practitioner; Visit Provider Surgery
DX: I89.0 Lymphedema, not elsewhere classified (principal); L97.812 Non-pressure chronic ulcer of other part of right lower leg with fat layer exposed; L97.822 Non-pressure chronic ulcer of other part of left lower leg with fat layer exposed; R60.0 Localized edema; I70.203 Unspecified atherosclerosis of native arteries of extremities, bilateral legs; Z98.62 Peripheral vascular angioplasty status; Z79.2 Long term (current) use of antibiotics
CPT/HCPCS: 11042